=== PATIENT | female | born 1935 | race Caucasian/White ===

== ENCOUNTER → 2016-04-28 | Outpatient (CLI) | payer OTHER ==
[~2016-04-28] MED LIST: ASPI81TA28 PO; LBT100 PO; NTRGSL/4 UT; PLV75 PO; RSTOPS OPB; SERT1TAB88 PO; SIMV40TA2 PO; SYN75 PO; ZNTT/150 PO
[2016-04-28 15:46] LABS: COMPLETE YES; EOS % 2.5 %; HEMATOCRIT 40.2 % (37-47); IG% 0.3 %; LYMPH ABS # 1.05 K/uL (1.2-3.4); MEAN CELL VOLUME 84.3 fL (80-100); MEAN CORPUSCULAR HGB CONC 32.1 g/dl (32-36); MEAN PLATELET VOLUME 11.6 fL (7.4-10.4); MONO % 12.2 %; PLATELET COUNT 206 K/uL (130-400); RED BLOOD COUNT 4.77 M/uL (4.2-5.4); WHITE BLOOD COUNT 8.78 K/uL (4.8-10.8)
[2016-04-28 15:54] LABS: ALT/SGPT 17 U/L (12-78); BLOOD UREA NITROGEN 15 mg/dl (7-18); BUN/CREATININE RATIO 10.9 (10-20); CALCIUM 8.5 mg/dl (8.5-10.1); CARBON DIOXIDE 27 mmol/L (21-32); CHLORIDE 108 mmol/L (98-107); GLUCOSE 106 mg/dl (70-99); POTASSIUM 4.1 mmol/L (3.5-5.1); SODIUM 145 mmol/L (136-145)
[2016-04-28 16:05] LABS: ALB/GLOB RATIO 0.9 (0.9-2); ALKALINE PHOSPHATASE 69 U/L (45-117); AST/SGOT 13 U/L (15-37)
== END | disposition home or self-care (01) ==
LOC: C.LABSPEC 15:05
PROVIDERS: ATTEND Internal Medicine
DX: R53.83 Other fatigue (principal); I10 Essential (primary) hypertension; I25.10 Atherosclerotic heart disease of native coronary artery without angina pectoris

== ENCOUNTER → 2016-11-18 | Outpatient (CLI) | payer OTHER ==
[~2016-11-18] MED LIST changes: +CIPR1TAB10 PO; +CLOP1TAB15 PO; +LABE100T23 PO; +LEVO75TA5 PO; +METR-163 PO; +ONDA8TAB62 SL; +ZNT150 PO
[2016-11-18 13:26] LABS: ESTIMATED AVERAGE GLUCOSE 126 mg/dl; HA1C FLAG Normal (Normal)
[2016-11-18 13:53] LABS: BLOOD UREA NITROGEN 18 mg/dl (7-18); BUN/CREATININE RATIO 14.1 (10-20); CALCIUM 8.7 mg/dl (8.5-10.1); CARBON DIOXIDE 29 mmol/L (21-32); CHLORIDE 108 mmol/L (98-107); GLUCOSE 108 mg/dl (70-99); POTASSIUM 4.2 mmol/L (3.5-5.1); SODIUM 142 mmol/L (136-145)
[2016-11-18 14:06] LABS: CHOLESTEROL 128 mg/dl (0-200); CHOLESTEROL/HDL RATIO 3.5; HDL CHOLESTEROL 37 mg/dl; TRIGLYCERIDES 137 mg/dl (0-150); VERY LOW DENSITY LIPOPROT CALC 27 mg/dl
== END | disposition home or self-care (01) ==
LOC: C.LABSPEC 10:14
PROVIDERS: ATTEND Internal Medicine
DX: Z00.00 Encounter for general adult medical examination without abnormal findings (principal); R73.9 Hyperglycemia, unspecified; E78.5 Hyperlipidemia, unspecified; I10 Essential (primary) hypertension; E03.9 Hypothyroidism, unspecified

== ENCOUNTER → 2016-11-30 | Outpatient (CLI) | payer OTHER | END | disposition home or self-care (01) | LOC: C.RDSM 10:30 | PROVIDERS: ATTEND Physical Medicine & Rehabilitation Sports Medicine | DX: Z96.653 Presence of artificial knee joint, bilateral (principal) ==

== ENCOUNTER 2016-12-17 11:21 | Inpatient (IN) | payer OTHER ==
[~2016-12-17] VITALS: Ht 165.1 cm; Wt 80.0 kg
[2016-12-17] VITALS (7 sets, daily range): BP systolic 144–225; BP diastolic 66–84; PULSE 66–78; TEMP 36.4–37.3; O2SAT 93–97; Ht 165.1 cm; Wt 80.0 kg
[~2016-12-17 11:21] MED LIST changes: -CIPR1TAB10 PO; -CLOP1TAB15 PO; -LABE100T23 PO; -LEVO75TA5 PO; -METR-163 PO; -ONDA8TAB62 SL; -ZNT150 PO
[2016-12-17 12:09] LABS: MEAN CELL VOLUME 83.7 fL (80-100); MEAN CORPUSCULAR HEMOGLOBIN 25.9 pg (25-34); MEAN PLATELET VOLUME 10.8 fL (7.4-10.4); PLATELET COUNT 183 K/uL (130-400); RED BLOOD COUNT 5.02 M/uL (4.2-5.4); WHITE BLOOD COUNT 9.16 K/uL (4.8-10.8)
--- NOTE | 2016-12-17 12:13 | DIAGNOSTIC IMAGING REPORT ---
CHEST ONE VIEW PORTABLE CLINICAL HISTORY: Chest pain. COMPARISON STUDY: Chest radiograph February 13, 2016. FINDINGS: Lung volumes are normal. There is no pneumothorax or pleural effusion. There is no evidence of pulmonary edema. Cardiomediastinal silhouette is stable. There are median sternotomy wires and clips from bypass grafting. Minimal left basilar opacity suggests atelectasis. IMPRESSION: No acute cardiopulmonary findings. Electronically signed by: Antoni Mcgrath M.D. 12/17/2016 12:11 PM Dictated Date/Time: 12/17/2016 12:10 PM
[2016-12-17 12:17] LABS: PROTHROMBIN TIME (PATIENT) 10.2 SECONDS (9.0-12.0)
[2016-12-17] MEDS ORDERED: LABE100T23 PO (12:22)
[2016-12-17] MEDS ORDERED: CLOP1TAB15 PO (12:22)
[2016-12-17] MEDS ORDERED: LEVO75TA5 PO (12:23)
[2016-12-17 12:25] LABS: BUN/CREATININE RATIO 13.4 (10-20); CALCIUM 8.1 mg/dl (8.5-10.1); CREATININE 1.2 mg/dl (0.60-1.20); POTASSIUM 4.2 mmol/L (3.5-5.1)
[2016-12-17 12:30] LABS: CKMB/CK RATIO 2.2 (0-3.0)
[2016-12-17] MEDS ORDERED: NITROGLYCERIN OINT 2% 1GM PACKET EXT ONE (12:30)
--- NOTE | 2016-12-17 13:48 | EMERGENCY ROOM VISIT NOTE ---
History Report prepared by Tal: Miguel Deluna Under the Supervision of: Dr. Kar Higgins M.D. First contact with patient: 12:15 Chief Complaint: CHEST PAIN Stated Complaint: CHEST DISCOMFORT Nursing Triage Summary: pt arrived als from dermatology, pt developed left arm pain yesturday while gardening lasting into today pt took one nitro resolving the pain in route pt was administered 324 asa no complants at this time pt hx stent 3 years prior. c/o feeling weak and tired History of Present Illness The patient is a 81 year old female who presents to the Emergency Room by EMS with complaints of constant left arm pain beginning last night. She states that she was reading when the pain began. She describes the pain as a "dull, ache". The patient states that she took nitroglycerin this morning for her symptoms. She notes that she felt lightheaded after taking the nitroglycerin and walking up some stairs. Her pain was present this morning upon waking up. The patient's pain is worsened with movement. She also complains of fatigue. She denies any chest pain, SOB, nausea, or vomiting. The patient is on Plavix. She has a history of five coronary artery bypass grafts. She had a cardiac stent placed three years ago. Source of History: patient, treating provider Onset: Last night Position: arm (left) Quality: ache, dull Timing: constant Modifying Factors (Worsening): movement Associated Symptoms: + fatigue, No chest pain, No SOB, No nausea, No vomiting Review of Systems See HPI for pertinent positives & negatives. A total of 10 systems reviewed and were otherwise negative. Past Medical & Surgical Medical Problems: (1) Atherosclerosis Nos (2) CAD (coronary artery disease) (3) Chest pain (4) CHEST PAIN, CAD (5) GERD (gastroesophageal reflux disease) (6) Hyperlipidemia Nec/Nos (7) Hypertension Nos (8) Old Myocardial Infarct Surgical Problems: (1) History of coronary artery bypass graft (2) S/P CABG x 5 Old medical records were reviewed. Nurse's notes were reviewed and I agree with. Family History Heart disease Social History Smoking Status: Never Smoker Marital Status: Housing Status: lives with significant other Occupation Status: retired Current/Historical Medications Scheduled Aspirin (Aspirin Ec), 81 MG PO DAILY Clopidogrel (Plavix), 75 MG PO Q2D Labetalol Hcl (Labetalol Hcl), 100 MG PO QPM Levothyroxine Sodium (Levothyroxine Sodium), 75 MCG PO DAILY Nitroglycerin (Nitrostat), 0.4 MG UT PRN Ranitidine (Zantac), 150 MG PO DAILY Sertraline HCl (Sertraline HCl), 25 MG PO DAILY Simvastatin (Zocor), 40 MG PO QPM Allergies Coded Allergies: Codeine (Verified Adverse Reaction, Intermediate, VOMITING, 04/19/09) No Known Allergies (Verified , 07/15/05) Physical Exam Vital Signs Date Time Temp Pulse Resp B/P (MAP) Pulse Ox O2 Delivery O2 Flow Rate FiO2 12/17/16 13:46 224/89 12/17/16 13:31 218/80 12/17/16 13:16 192/74 12/17/16 13:06 59 20 96 12/17/16 13:01 192/84 12/17/16 12:52 195/84 12/17/16 12:46 206/81 12/17/16 12:36 56 21 94 12/17/16 12:31 198/100 12/17/16 12:16 183/110 12/17/16 12:12 54 12/17/16 12:01 201/100 12/17/16 11:43 95 Room Air 12/17/16 11:35 95 Room Air 12/17/16 11:31 36.4 59 18 215/90 95 Room Air Physical Exam General: Non-ill appearing older female in no acute distress. HEENT: Normal cephalic atraumatic. Pupils are equal round and reactive to light. Sclerae anicteric. Extraocular movements are intact. Oropharynx is pink with moist mucous membranes. No swelling of the mouth lips or tongue. Neck: Supple with a midline trachea. No meningeal signs or stiffness, no JVD or bruits. No Stridor. Chest: Clear to auscultation bilaterally. No wheezes or rhonchi. No increased work of breathing. Heart: regular rate and rhythm. Abdomen: Soft nontender, nondistended without rebound guarding or rigidity. Extremities: No cyanosis clubbing or edema. No calf tenderness or assymetry Spine/Back. Non tender to palpation. No CVA tenderness Skin: Good turgor without rashes. Neurologic exam: Cranial nerves two through 12 are intact. Motor and sensation are intact and symmetrical throughout. Medical Decision & Procedures ER Provider Diagnostic Interpretation: X-ray results as stated below per interpretation by me and the radiologist: CHEST ONE VIEW PORTABLE FINDINGS: Lung volumes are normal. There is no pneumothorax or pleural effusion. There is no evidence of pulmonary edema. Cardiomediastinal silhouette is stable. There are median sternotomy wires and clips from bypass grafting. Minimal left basilar opacity suggests atelectasis. IMPRESSION: No acute cardiopulmonary findings. Electronically signed by: Antoni Mcgrath M.D. 12/17/2016 12:11 PM Laboratory Results 12/17/16 11:49 12/17/16 11:49 Test 12/17/16 11:49 12/17/16 11:55 Red Blood Count 5.02 M/uL (4.2-5.4) Mean Corpuscular Volume 83.7 fL (80-100) Mean Corpuscular Hemoglobin 25.9 pg (25-34) Mean Corpuscular Hemoglobin Concent 31.0 g/dl (32-36) RDW Standard Deviation 43.5 fL (36.4-46.3) RDW Coefficient of Variation 14.2 % (11.5-14.5) Mean Platelet Volume 10.8 fL (7.4-10.4) Prothrombin Time 10.2 SECONDS (9.0-12.0) Prothromb Time International Ratio 1.0 (0.9-1.1) Activated Partial Thromboplast Time 27.0 SECONDS (21.0-31.0) Partial Thromboplastin Ratio 1.0 Anion Gap 6.0 mmol/L (3-11) Est Creatinine Clear Calc Drug Dose 38.1 ml/min Estimated GFR () 48.4 Estimated GFR (Non- 41.8 BUN/Creatinine Ratio 13.4 (10-20) Calcium Level 8.1 mg/dl (8.5-10.1) Magnesium Level 2.1 mg/dl (1.8-2.4) Total Bilirubin 0.5 mg/dl (0.2-1) Aspartate Amino Transf (AST/SGOT) 10 U/L (15-37) Alanine Aminotransferase (ALT/SGPT) 16 U/L (12-78) Alkaline Phosphatase 66 U/L (45-117) Total Creatine Kinase 129 U/L (26-192) Creatine Kinase MB 2.8 ng/ml (0.5-3.6) Creatine Kinase MB Ratio 2.2 (0-3.0) Total Protein 6.7 gm/dl (6.4-8.2) Albumin 3.4 gm/dl (3.4-5.0) Globulin 3.3 gm/dl (2.5-4.0) Albumin/Globulin Ratio 1.0 (0.9-2) Thyroid Stimulating Hormone (TSH) 1.780 uIu/ml (0.300-4.500) Free Thyroxine 0.95 ng/dl (0.80-1.60) Bedside Troponin I < 0.030 ng/ml (0-0.045) Laboratory studies as stated above per my review. Medications Administered Medications (Trade) Dose Ordered Sig/Jordi Route Start Time Stop Time Status Last Admin Dose Admin Nitroglycerin (Nitroglycerin 2% Oint) 0.5 inch NOW ONCE EXT 12/17/16 12:30 12/17/16 12:32 DC 12/17/16 12:30 0.5 INCH ECG Indication: chest pain Rate (beats per minute): 57 Rhythm: sinus bradycardia Findings: 1st degree AV block, PVC, Q waves (Old, inferiorly), other (Poor R- wave progession. Biphasic T-waves in the lateral leads.) Comparison ECG Date: October 14, 2013 Change: T-waves appear slightly changed. ED Course 1221: Past medical records reviewed. The patient was evaluated in room C11B, and a complete history and physical examination were performed. 1230: Ordered Nitroglycerin 2% Oint 0.5 inch EXT. 1334: Upon reevaluation, the patient is resting comfortably. I discussed the results and treatment plan with the patient. She verbalized agreement of the treatment plan. The patient will be evaluated for further management. Medical Decision Differentials include, but are not limited to; acute coronary syndrome, arrhythmia, musculoskeletal and electrolyte or metabolic abnormality. This patient comes in as described above. She has a extensive cardiac history with revascularization. She had left arm pain last evening want to bear when she woke up. She had some arm pain got worse and she took a nitroglycerin and got better. She felt a little dizzy after taking nitroglycerin after walking up steps. She is asymptomatic at present. She has no chest pain or shortness of breath. IV access was established and she was noted to be hypertensive. She was given 1/2 inch of Nitropaste to gently bring down her pressure which it did. Her EKG shows no definite acute changes there is some biphasic T's in V5 and V6 which is slightly different than before but no ST segment elevations. Chest x-ray is unremarkable. She has no acute electrolyte or metabolic abnormalities. The patient does not typically take nitroglycerin and can't remember the last time she took it. Given her extensive history and the use and nitroglycerin which is atypical for her, I do think she needs to be observed for further treatment and evaluation to rule out a cardiac event. I have consulted Dr. Carlin De Souza and he will admit her for these measures. Medication Reconcilliation Current Medication List: was personally reviewed by me Blood Pressure Screening Patient's blood pressure: Elevated blood pressure Blood pressure disposition: Referred to PCP Consults Time Called: 1325 Consulting Physician: Dr. De Souza -[facility] Returned Call: [phone] Discussed the patient's case. The patient will be evaluated for further management. Impression Primary Impression: Left arm pain Additional Impression: Acute coronary syndrome Scribe Attestation The scribe's documentation has been prepared under my direction and personally reviewed by me in its entirety. I confirm that the note above accurately reflects all work, treatment, procedures, and medical decision making performed by me. Departure Information Dispostion Being Evaluated By Hospitalist Referrals Souleymane Asif M.D. (PCP) Patient Instructions [facility] Problem Qualifiers
[2016-12-17] MEDS ORDERED: LABETALOL HCL 100 MG TAB PO ONE (14:00)
[2016-12-17] MEDS ORDERED: MoRPHine SULFATE 2 MG/ML CARP IV PRN (14:00)
[2016-12-17] MEDS ORDERED: LORAZEPAM 0.5 MG TAB PO PRN (14:00)
[2016-12-17] MEDS ORDERED: NITROGLYCERIN 0.4 MG SL PER TAB CHARGE SL PRN (14:00)
[2016-12-17] MEDS ORDERED: HydrALAZINE HCL 20 MG/ML VIAL IV. STA (14:03)
[2016-12-17] MEDS ORDERED: ALUMINUM/MAGNESIUM/SIMETH (MAALOX MAX) 30 ML UDC PO PRN (14:15)
[2016-12-17 14:52] LABS: MAGNESIUM 2.1 mg/dl (1.8-2.4); THYROID STIMULATING HORMONE 1.78 uIu/ml (0.300-4.500)
[2016-12-17] MEDS ORDERED: IV FLUIDS COMPLETED PRN (15:15)
[2016-12-17] MEDS ORDERED: HydrALAZINE HCL 20 MG/ML VIAL IV. PRN (16:45)
--- NOTE | 2016-12-17 17:28 | History and Physical ---
History & Physical Date of Service Dec 17, 2016. History & Physical ADMISSION DATE : 12/17/2016 CHIEF COMPLAINT : 81-year-old female admitted through the emergency room with chest pain and left arm pain. She does have coronary artery disease. PRESENT ILLNESS : Patient with multiple medical problems including coronary artery disease. In 2006 she underwent a five-vessel coronary artery bypass graft at [facility]. She had a SARABIA to LAD and reverse saphenous graft from the aorta to OM 2 and to the RCA and rather sequential graft from the aorta to the ramus and diagonal arteries. In 2013 on 10/14/2013 she was admitted with inferior wall myocardial infarction. She had an emergency cardiac catheterization. She had evidence of critical stenosis of the RCA ostium. A stent was placed. Patient has been on aspirin and on Plavix. Her medical history is also significant for acute hypertension, anxiety, gastroesophageal reflux, hyperlipidemia, spinal stenosis. Patient was complaining of pain in her left arm last night. Denied any associated diaphoresis. No shortness of breath. No palpitation. This morning her symptoms persisted. Her called her to go upstairs. She went up 2 flights of steps. She felt short of breath. She took one nitroglycerin sublingually. She had an appointment to see Dr. Persaud in dermatology. When she was in his office she mentioned to the nurse that she took a nitroglycerin 1 hour prior to her dermatology appointment. Patient was sent to the emergency room for evaluation. She was seen by Dr. Higgins. Multiple tests were done. Her electrocardiogram did not show any acute changes. Her troponin I was normal. Because of her extensive coronary artery disease history and her complaints patient was admitted under observation status to complete her evaluation. PAST MEDICAL HISTORY : * Coronary artery disease. As noted above in February 2007 she had a prolonged episode of chest pain. She had evidence of non-ST segment elevation myocardial infarction. She was referred to [facility] and she underwent five- vessel coronary artery bypass graft as noted above. * On 10/14/[address] was admitted with ST segment elevation acute myocardial infarction and had a cardiac catheterization with placement of right coronary artery ostial stent. * Arterial hypertension. Long-standing. * Gastroesophageal reflux. Known distal esophageal stenosis requiring dilatation in the past * Hypothyroidism diagnosed in 1917. Compensated. * Left total knee arthroplasty in July 2005 * Right total knee arthroplasty on 01/30/2010 * Bilateral tubal ligation in the remote past. Subsequently she had a total abdominal hysterectomy and bilateral salpingo-oophorectomy in 1985 because of bleeding and endometriosis * Diverticulosis with episode of acute diverticulitis in 2006 * Chronic sinus congestion underwent bilateral ethmoidectomy and maxillary sinus antrostomy [place] [address] Whiteside. * Spinal stenosis at L5-S1 level and she did receive steroid injection in the past on 03/05/2010 SOCIAL HISTORY : She is . Had 4 children. No history of any smoking or alcohol. No excessive coffee T was soft drinks. 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 FAMILY HISTORY : Mother denies a 69 had an abdominal aortic aneurysm which was repaired. She had another aneurysm that ruptured. She had an IA at age 54. Her father at age 73. Had lung cancer and myocardial infarction. One brother age 48 at liver cirrhosis. Her family history is significant for acute hypertension and breast cancer on her mother's side. ALLERGIES : Intolerance to codeine with mostly GI symptomatology CURRENT MEDICATIONS : All as noted on her home medication list REVIEW OF SYSTEMS : She is feeling anxious and nervous. She is having some pressure in her head. No problem with her vision. She has a fullness in her ears. Denies any sore throat. No neck pain. No chest pain at this point. No shortness of breath. No nausea no vomiting. No problem with her bowel movements. No problem urinating. PHYSICAL EXAMINATION : Well-developed in no distress. Her recorded weight is 84.2 kg, height 165.1 cm , BMI 30.9 Vital signs: On arrival to the emergency room her blood pressure was 215/90, pulse 59, respiration 18, temperature 36.4, oxygen saturation 95% on room air Skin is warm and dry. Facial rash for which she was seen the wad impregnator today HEENT: She wears glasses. No mucosal abnormalities in her nose mouth or throat. Neck is supple without lymph node or thyroid enlargement. No JVD. Normal cardiac pulses. No bruit. Chest is normal. No chest wall tenderness. Heart regular heart sounds without any murmur rub or gallop Lungs are clear. Abdomen is soft nontender without organomegaly or masses Back no spinal tenderness Extremities no edema clubbing or cyanosis. No joint or muscle tenderness. Neurological examination: She is alert and oriented without deficit. LABORATORY TESTS : WBC count 9160, hemoglobin 13, hematocrit 42%, platelet count 183,000. Sodium 142, potassium 4.2, chloride 109, CO2 27, BUNs 16, creatinine 1.2, glucose 98, calcium 8.1, magnesium 2.1, total bilirubin 0.5, AST 10, AST 16, alkaline phosphatase 66, total CK 129, MB fraction 2.8, troponin I less than 0.030, total protein 6.7, albumin 3.4, globulin 3.3, TSH 1.780, free T4 0.95. Prothrombin time 10.2, INR 1.0, PTT 27. Chest x-ray showed no acute changes Electrocardiogram showed sinus rhythm with PVCs. No acute changes ASSESSMENT : * Chest and left arm pain * Coronary artery disease status post 5 vessel coronary artery bypass graft in 2006. Status post stenting of an ostial RCA stenosis in 2013 * Arterial hypertension * Hypothyroidism * Hyperlipidemia * Gastroesophageal reflux * Distal esophageal stenosis requiring dilatation in the past * Anxiety PLAN : Patient was admitted under observation status. 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 All other laboratory tests were ordered. Echocardiogram was ordered. She was continued on her medications. Hydralazine intravenously for elevated blood pressure. Cardiology consultation requested. A Lexiscan was ordered. Patient will not tolerate running on the treadmill. She is also afraid of having a dobutamine stress test. We'll control her blood pressure. Complete her workup. Proceed with a stress test if her cardiac isoenzymes are negative.
[2016-12-17] MEDS: RANITIDINE HCL 150 MG TAB PO SCH (20:44)
[2016-12-17] MEDS: SIMVASTATIN 40 MG TAB PO SCH (20:44)
[2016-12-17] MEDS ORDERED: LABETALOL HCL 100 MG TAB PO SCH (21:00)
[2016-12-18] VITALS (7 sets, daily range): BP systolic 103–159; BP diastolic 64–76; PULSE 66–79; TEMP 36.5–37; O2SAT 91–95
[2016-12-18 01:03] LABS: CKMB/CK RATIO 1.5 (0-3.0)
[2016-12-18 06:11] LABS: BASO % 0.1 %; BASO ABS # 0.01 K/uL (0-0.2); COMPLETE YES; EOS % 0.8 %; HEMATOCRIT 41.1 % (37-47); IG% 0.3 %; LYMPH % 9.6 %; LYMPH ABS # 1.11 K/uL (1.2-3.4); MEAN CELL VOLUME 82.4 fL (80-100); MEAN CORPUSCULAR HEMOGLOBIN 27.7 pg (25-34); MEAN CORPUSCULAR HGB CONC 33.6 g/dl (32-36); MEAN PLATELET VOLUME 10.9 fL (7.4-10.4); NEUT % 78.2 %; PLATELET COUNT 180 K/uL (130-400); RED BLOOD COUNT 4.99 M/uL (4.2-5.4); WHITE BLOOD COUNT 11.62 K/uL (4.8-10.8)
[2016-12-18] MEDS: LEVOTHYROXINE 75 MCG TAB PO SCH ×2 (06:30→11:02)
[2016-12-18 06:48] LABS: BUN/CREATININE RATIO 14.2 (10-20); CALCIUM 8.4 mg/dl (8.5-10.1); CREATININE 1.2 mg/dl (0.60-1.20); POTASSIUM 4.2 mmol/L (3.5-5.1)
[2016-12-18 06:53] LABS: CKMB/CK RATIO 1.2 (0-3.0)
[2016-12-18] MEDS ORDERED: REGADENOSON 0.4 MG/5 ML SYR ONE (08:01)
[2016-12-18] MEDS: RANITIDINE HCL 150 MG TAB PO SCH ×2 (11:02→21:04)
[2016-12-18] MEDS: ASPIRIN 81 MG ECTAB PO SCH (11:02)
[2016-12-18] MEDS: SERTRALINE HCL 50 MG TAB PO SCH (11:02)
--- NOTE | 2016-12-18 14:10 | Myocardial Perfusion Study ---
Myocardial Perfusion Study Rpt Myocardial Perfusion Study Rpt Date of Service 12/18/16 Myocardial Perfusion Study Rpt Procedure: 1. Myocardial perfusion study performed in multiple views/images 2. Lexiscan pharmacologic stress ECG Indications: 1. Chest pain 2. CAD Consent: Informed written consent was obtained prior to the procedure. Ordering physician: Dr. De Souza Procedural details: For the stress portion of the study, Lexiscan 0.4 mg was intravenously administered followed by a saline flush. This was followed by 28.9 mCi of technetium 99m Cardiolite, injected at 9:45 a.m. on 12/18/2016. 30 minutes following the injection, imaging of the heart was performed in multiple projections. For the rest portion of the study, 9.5 mCi technetium 99m Cardiolite was injected intravenously at 7:44 a.m. on 12/18/2016. 1 hour following the injection, imaging of the heart was performed in the same projections. Lexiscan stress ECG: Resting ECG demonstrated: Sinus rhythm at 76 bpm. Maximum heart rate: 102 bpm Resting blood pressure: 128/67 mmHg Maximum blood pressure: 174/75 mmHg Maximal, age-predicted heart rate: 74 % Significant ST changes: None Arrhythmia: None Symptoms: Dyspnea, nausea, vomiting. No chest pain. Findings: Rotating raw imaging demonstrated no significant lung uptake. There is no significant motion artifact. Heart size appeared normal. Myocardial perfusion demonstrated moderate sized area of mildly to moderately reduced uptake involving the base to mid inferior, base to mid inferolateral, and base to mid lateral wall segments. These defects were fixed in post stress and rest imaging with mild reversibility in the mid segments, suggesting prior infarct with mild santana-infarct ischemia. Ejection fraction: 58 % Wall motion: Normal No significant transient ischemic dilation. Impression: 1. Abnormal myocardial perfusion study suggesting base to mid inferior, inferolateral, and lateral wall infarct with mild santana-infarct ischemia in the mid wall segments. 2. Normal LV systolic function. EF 58%. 3. Wall motion appeared normal. 4. Lexiscan induced dyspnea, nausea, and vomiting. No chest pain. 5. No arrhythmia. 6. Nondiagnostic Lexiscan ECG.
--- NOTE | 2016-12-18 14:36 | ECHOCARDIOGRAM REPORT ---
*NOTICE TO RECEIVING [employer] This information is strictly Confidential and protected under [place] law. [place] law prohibits you from making any further disclosure of this information unless further disclosure is expressly permitted by the written consent of the person to whom it pertains or is authorized by law. A general authorization for the release of medical or other information is not sufficient for this purpose. Hospital accepts no responsibility if the information is made available to any other person, INCLUDING THE PATIENT. Interpretation Summary * Name: SULEMA ARMENTA Study Date: 12/18/2016 06:50 AM BP: 136/72 mmHg * Patient Location: [facility]\S\N282\S\2 HR: 79 * : 1935 (M/d/yyyy) Gender: Female Height: 65 in * Age: 81 yrs Ethnicity: [place] Weight: 185 lb * Ordering Physician: Souleymane Asif * Referring Physician: Self, Referred * Performed By: Zee Tamayo RDCS * * Reason For Study: CHEST PAIN * BSA: 1.9 m2 * -- Conclusions -- * 1. Normal left ventricular size and systolic function. EF 55-60%. Hypokinesis of the base to mid inferior wall. Severe hypokinesis to akinesis of the mid inferolateral wall. Akinesis of the basal inferolateral wall. Moderate concentric left ventricular hypertrophy. Type 1 diastolic dysfunction. * 2. Normal right ventricular size with mildly reduced systolic function. * 3. The left atrium is mildly dilated. * 4. Aortic valve sclerosis mild, without significant aortic valvular stenosis. * 5. Normal estimated right ventricular systolic pressure; 19 mmHg. * 6. No significant change from prior study on 10/15/2013. Procedure Details * A complete two-dimensional transthoracic echocardiogram was performed (2D, M-mode, Doppler and color flow Doppler). Left Ventricle * Normal left ventricular size and systolic function. EF 55-60%. Hypokinesis of the base to mid inferior wall. Severe hypokinesis to akinesis of the mid inferolateral wall. Akinesis of the basal inferolateral wall. Moderate concentric left ventricular hypertrophy. Type 1 diastolic dysfunction. Right Ventricle * Normal right ventricular size with mildly reduced systolic function. Atria * The left atrium is mildly dilated. * Right atrial size is normal. * There is no evidence of atrial septal defect, but resolution does not allow assessment for a patent foramen ovale. Mitral Valve * There is moderate mitral annular calcification. * There is no mitral valve stenosis. * There is trace mitral regurgitation. Tricuspid Valve * The tricuspid valve is not well visualized, but is grossly normal. * There is no tricuspid stenosis. * There is trace tricuspid regurgitation. Aortic Valve * Aortic valve sclerosis mild, without significant aortic valvular stenosis. * No aortic regurgitation is present. Pulmonic Valve * The pulmonary valve is inadequately visualized, but the Doppler data is adequate for interpretation. * There is no pulmonic valvular stenosis. * Trace pulmonic valvular regurgitation. Great Vessels * The aortic root is normal size. * Aortic arch of normal dimension. Pericardium/Pleural * There is no pericardial effusion. Great Vessels * Normal inferior vena cava size and collapsability with sniff indicates a normal right atrial pressure of 3 mmHg MMode 2D Measurements and Calculations IVSd 1.5 cm IVSs 2.2 cm LVIDd 4.5 cm LVIDs 3.6 cm LVPWd 1.4 cm LVPWs 1.5 cm IVS/LVPW 1.1 FS 19.8 % EDV(Teich) 90.2 ml ESV(Teich) 53.4 ml EF(Teich) 40.8 % EDV(cubed) 88.3 ml ESV(cubed) 45.6 ml EF(cubed) 48.4 % % IVS thick 48.9 % % LVPW thick 11.9 % LV mass(C)d 250.2 grams LV mass(C)dI 130.8 grams/m\S\2 LV mass(C)s 286.0 grams LV mass(C)sI 149.5 grams/m\S\2 SV(Teich) 36.8 ml SI(Teich) 19.2 ml/m\S\2 SV(cubed) 42.8 ml SI(cubed) 22.3 ml/m\S\2 Ao root diam 3.1 cm Ao root area 7.4 cm\S\2 LA dimension 4.5 cm asc Aorta Diam 3.3 cm LA/Ao 1.5 LVOT diam 2.2 cm LVOT area 3.7 cm\S\2 LVAd ap4 29.5 cm\S\2 LVLd ap4 8.4 cm EDV(MOD-sp4) 89.8 ml EDV(sp4-el) 87.4 ml LVAs ap4 17.0 cm\S\2 LVLs ap4 6.8 cm ESV(MOD-sp4) 36.4 ml ESV(sp4-el) 36.1 ml EF(MOD-sp4) 59.4 % EF(sp4-el) 58.8 % LVAd ap2 28.7 cm\S\2 LVLd ap2 7.7 cm EDV(MOD-sp2) 90.7 ml EDV(sp2-el) 91.4 ml LVAs ap2 16.9 cm\S\2 LVLs ap2 6.5 cm ESV(MOD-sp2) 40.7 ml ESV(sp2-el) 37.3 ml EF(MOD-sp2) 55.1 % EF(sp2-el) 59.1 % LVLd %diff -9.85 % EDV(MOD-bp) 91.7 ml LVLs %diff -5.08 % ESV(MOD-bp) 37.4 ml EF(MOD-bp) 59.2 % SV(MOD-sp4) 53.3 ml SI(MOD-sp4) 27.9 ml/m\S\2 SV(MOD-sp2) 50.0 ml SI(MOD-sp2) 26.1 ml/m\S\2 SV(MOD-bp) 54.2 ml SI(MOD-bp) 28.3 ml/m\S\2 SV(sp4-el) 51.4 ml SI(sp4-el) 26.9 ml/m\S\2 SV(sp2-el) 54.0 ml SI(sp2-el) 28.2 ml/m\S\2 Doppler Measurements and Calculations MV E max olena 86.8 cm/sec MV A max olena 128.1 cm/sec MV E/A 0.68 MV V2 max 151.2 cm/sec MV max PG 9.1 mmHg MV V2 mean 73.7 cm/sec MV mean PG 2.5 mmHg MV V2 VTI 34.8 cm MVA(VTI) 2.3 cm\S\2 MV P1/2t max olena 90.3 cm/sec MV P1/2t 116.6 msec MVA(P1/2t) 1.9 cm\S\2 MV dec slope 227.0 cm/sec\S\2 MV dec time 0.32 sec Ao V2 max 185.8 cm/sec Ao max PG 13.8 mmHg Ao max PG (full) 9.9 mmHg Ao V2 mean 125.0 cm/sec Ao mean PG 7.1 mmHg Ao mean PG (full) 5.0 mmHg Ao V2 VTI 36.5 cm SAHRA(I,A) 2.2 cm\S\2 SAHRA(I,D) 2.2 cm\S\2 SAHRA(V,A) 2.0 cm\S\2 SAHRA(V,D) 2.0 cm\S\2 LV V1 max PG 4.0 mmHg LV V1 mean PG 2.1 mmHg LV V1 max 99.4 cm/sec LV V1 mean 68.0 cm/sec LV V1 VTI 22.3 cm SV(Ao) 271.7 ml SI(Ao) 142.0 ml/m\S\2 SV(LVOT) 81.4 ml SI(LVOT) 42.5 ml/m\S\2 TV E max olena 40.3 cm/sec TR max olena 196.8 cm/sec RVSP(TR) 18.5 mmHg RAP systole 3.0 mmHg
--- NOTE | 2016-12-18 15:54 | CARDIOLOGY CONSULTATION ---
DATE OF CONSULTATION: 12/18/2016 TIME: 14:34 p.m. ORDERING PHYSICIAN: Souleymane De Souza MD REASON FOR CONSULTATION: Chest pain and CAD. PRIMARY [facility] RADIO OPERATOR: Dr. Guzmán. HISTORY OF PRESENT ILLNESS: Mrs. Ojeda is a pleasant 81-year-old female with a history significant for CAD, status post CABG and PCI with RCA infarct, hypertension, dyslipidemia, and acid reflux. She presented to [facility] and was admitted on 12/17/2016 due to left arm pain. She states that she was working in her flower bed and a few minutes later, while at rest, she developed left-sided arm pain. She said that included the entire left arm down to the fingertips. It was constant for several hours before spontaneously resolving. There were no associated shortness of breath and no radiation of the pain. She denies any chest discomfort upon questioning. She does have mild dyspnea with exertion if she walks up steps quickly, but states that this is a chronic issue. She does sometimes experiences lightheadedness after walking up stairs quickly as well. She recalls that during her myocardial infarction in 2013, her angina consisted of a left chest discomfort, described as a thumping sensation that radiated to her jaw. She had no such discomfort during her left arm pain episode. She did not recall having left arm pain as part of her angina as well. She believes that her symptoms are completely different than her prior angina. She does not exercise, but describes herself as being an active person. Despite her activities, once again, she has not had any further anginal symptoms, but does have chronic dyspnea with exertion while climbing stairs quickly. She has been having some issues with abdominal discomfort and nausea and vomiting. She states that she vomits often, sometimes every other day. She has been evaluated by other providers for these symptoms. She denies recent syncope, near syncope, palpitations, edema, melena, hematochezia, or hematuria. She currently denies left arm pain. REVIEW OF SYSTEMS: As above. Review of systems is otherwise negative/unremarkable. PAST MEDICAL HISTORY: 1. Multivessel CAD status post CABG x5 in [place] [facility] SARABIA to LAD. SVG to OM2 and RCA. SVG sequential graft to ramus and diagonal vessel. 2. RCA STEMI 10/14/2013, status post PCI to the ostial RCA stent that was a 3 x 18 mm Xience drug-eluting stent, postdilated with 3.5 noncompliant balloon. 3. Hypertension. 4. Dyslipidemia. 5. Acid reflux. 6. Anxiety. 7. Spinal stenosis. 8. Hypothyroidism. 9. Left total knee arthroplasty. 10. Right total knee arthroplasty. 11. Bilateral tubal ligation. 12. Total abdominal hysterectomy and bilateral salpingo-oophorectomy in 1985. 13. Diverticulosis with a history of diverticulitis. 14. Bilateral ethmoidectomy and maxillary sinus antrostomy. 15. Spinal stenosis, L5-S1 level. HOME MEDICATIONS: Include Zocor 40 mg daily, labetalol 100 mg at bedtime, levothyroxine 75 mcg daily, Plavix 75 mg daily, and aspirin 81 mg daily. INPATIENT MEDICATIONS: Include aspirin 81 mg daily, Plavix 75 mg daily, simvastatin 40 mg daily, and labetalol 100 mg q.p.m. Please see full list. ALLERGIES: CODEINE IS LISTED INTOLERANCE DUE TO GI ISSUES. No known drug allergies. SOCIAL HISTORY: Denies tobacco or alcohol abuse. She is and lives at home with her . She has 4 children, 1 in [place], 2 in [place], and 1 in [place]. 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 FAMILY HISTORY: Mother had an SC at the age of 54 and also had AAA repair. Father at 73 with lung cancer and myocardial infarction. Brother at 48 with liver cirrhosis. PHYSICAL EXAMINATION: VITAL SIGNS: Temperature 37 degrees, heart rate 79 beats per minute, respiratory rate 18, and blood pressure 154/68 mmHg, but was significantly hypertensive at 215/90 mmHg upon presentation and her maximum blood pressure recorded during this hospitalization was 225/77 mmHg. Oxygen saturation 93% on room air. Weight 79.7 kg. GENERAL: No acute distress. She is alert and oriented. HEENT: Anicteric sclerae. NECK: No appreciable JVD. No bruits. Normal carotid upstrokes bilaterally. CARDIAC EXAMINATION: PMI was not palpable. There was no ventricular heave. Regular, normal S1 and S2. A 1/6 early peaking systolic ejection murmur best heard at the right upper sternal border. No rubs or gallops. LUNGS: Clear to auscultation bilaterally without wheezes, rales or rhonchi. ABDOMEN: Soft, nontender, and nondistended. Normoactive bowel sounds. No bruits noted. EXTREMITIES: No cyanosis. No significant pitting edema. No palpable cords. 2+ radial pulses bilaterally. 1+ dorsalis pedis pulses bilaterally. PSYCHIATRIC: Affect appears appropriate. Telemetry personally reviewed. Sinus rhythm with one 6-beat run of ventricular tachycardia at 00:35 this morning. LABORATORY DATA: White blood cell count 11.62, hemoglobin 13.8, and platelets 180. Sodium 140, potassium 4.2, BUN 17, creatinine 1.2, and magnesium 2.1. Troponin peak 0.018. TSH 1.78. INR 1. Chest x-ray on 12/17/2016, image personally reviewed. No obvious infiltrate. According to radiology, no acute cardiopulmonary findings. Echocardiogram on 12/18/2016: Normal LV size and systolic function. EF 55%-60%. Hypokinesis of the base to mid inferior wall. Severe hypokinesis to akinesis of the mid inferolateral wall. Akinesis of the basal inferolateral wall. Moderate LVH. Type 1 diastolic dysfunction. Mildly reduced RV systolic function. Sclerotic aortic valve without stenosis. RVSP 19. Myocardial perfusion study 12/18/2016: Base to mid inferior, inferolateral, lateral wall infarct with mild santana-infarct ischemia involving the mid wall segments in the territory. EF 58%. Cardiac catheterization on 10/14/2013: Mid LAD 100% stenosis. Severe distal disease involving the ramus. Proximal circumflex mild disease. OM2 occluded 100%. Ostial RCA 70%-80% and underwent PCI with drug-eluting stent as noted above. SVG to RCA thrombus noted within the proximal graft with occlusion 100%. SVG to OM2 patent. SARABIA to LAD patent. SVG sequential graft to the ramus and diagonal 100% occluded. ASSESSMENT AND PLAN: 1. Left arm pain: Given the fact that it lasted for several hours constantly without elevated troponins, this does not appear to be consistent with ischemic heart disease. She did have evidence of infarct on myocardial perfusion study and echocardiogram and there was mild santana-infarct ischemia in the mid wall segments of the inferolateral, inferior and lateral salomon. Recommend medical therapy. 2. Multivessel coronary artery disease, status post coronary artery bypass graft and RCA percutaneous coronary intervention: Continue aspirin 81 mg daily indefinitely. Continue Plavix as she is tolerating it well. No angina, but she did have left arm pain as described above. Would recommend optimizing medications for blood pressure. Consider b.i.d. dosing of beta valeria therapy as she does have an adequate heart rate to support increase beta valeria. Can consider high intensity statin therapy. 3. Hypertension: Consider increasing labetalol 200 mg twice daily and further titrate to optimize blood pressure as appropriate if heart rate allows. 4. Dyslipidemia: Can consider high intensity statin therapy given her underlying coronary artery disease. 5. Abnormal myocardial perfusion study: Myocardial perfusion study suggests prior infarct with mild santana-infarct ischemia in the mid segments of the inferolateral, lateral, and inferior wall segments. Recommend medical therapy as described above. Can increase beta valeria if no contraindication or issues in the past with this medication to improve her blood pressure and for antianginal benefits if she should have angina in the future. 6. Disposition: Follow up with Dr. Guzmán, her primary bilingual patient support caseworker. Thank you for allowing me to participate in the care of Mrs. Ojeda. Please call for any other questions or concerns. Greater than 40 minutes spent, with greater than 50% of the time spent in counseling the patient.
[2016-12-18] MEDS ORDERED: ISOSORBIDE MONONITRATE 30 MG TABCR PO ONE (17:30)
[2016-12-18] MEDS ORDERED: ONDANSETRON INJ 2 MG/ML 2 ML VIAL IV STA (17:36)
[2016-12-18] MEDS ORDERED: ONDANSETRON INJ 2 MG/ML 2 ML VIAL IV PRN (17:45)
--- NOTE | 2016-12-18 17:50 | Progress Note ---
Progress Note Date of Service Dec 18, 2016. Progress Note 81-year-old female with known coronary artery disease. She is status post 5 vessel coronary artery bypass graft in 2006 and an acute inferior wall myocardial infarction in 2013 with stenting of severe ostial stenosis of her RCA. She also has arterial hypertension, hyperlipidemia, gastroesophageal reflux and hypothyroidism. Patient presented with left arm the. She was also having problem with not feeling well. Feeling nauseous. Had vomiting. She was initially admitted under observation status. Cardiac isoenzymes were negative for any evidence of acute myocardial injury. Her echocardiogram showed multiple abnormalities with hypokinesis and akinesis of multiple abrasions of her left ventricular wall. Today she also had a Lexiscan done. Was abnormal. Showing evidence of santana-infarction ischemia. Patient was also seen in cardiology consultation by Dr. Pink. EXAMINATION : GENERAL: Well-developed. Not feeding well. Feeling nauseous. VITAL SIGNS: 159/75, pulse 66, respiration 18, temperature 36.5, oxygen saturation 95% on room air. SKIN: Warm and dry. No rash. HEENT: Wears glasses. NECK: No adenopathy no thyromegaly. No JVD. No carotid bruit. HEART: Regular heart sounds. No murmur rub or gallop. LUNGS: Clear. ABDOMEN: Soft nontender without organomegaly or masses BACK: No spinal tenderness EXTREMITIES: No edema clubbing or cyanosis LABORATORY TESTS : WBC count 11,620, hemoglobin 13.8, hematocrit 41.1, platelet count 180,000. Sodium 140, potassium 4.2, chloride 107, CO2 26, BUN 17, creatinine 1.3, glucose 126, calcium 8.4, as noted on her cardiac isoenzymes were negative ASSESSMENT : * Coronary artery disease * Santana-infarction ischemia * Arterial hypertension * Hyperlipidemia * Gastroesophageal reflux * Hypothyroidism PLAN : * As recommended by Dr. Pink will try to improve her blood pressure controlled. I did increase her labetalol to 200 mg twice a day. She was on higher dose in the past. * I added Imdur 60 mg daily * Also added Cozaar 12.5 mg daily * Continuing her other medications * Zofran for her nausea * Changed her status from observation to admission. We need time to optimize her treatment * If her condition remains stable we will increase her activity tomorrow and see how she does
[2016-12-18] MEDS ORDERED: CLOPIDOGREL BISULFATE 75 MG TAB PO SCH (21:00)
[2016-12-18] MEDS: LABETALOL HCL 100 MG TAB PO SCH (21:03)
[2016-12-18] MEDS: SIMVASTATIN 40 MG TAB PO SCH (21:04)
[2016-12-19] VITALS (11 sets, daily range): BP systolic 76–160; BP diastolic 42–72; PULSE 64–80; TEMP 36.4–36.8; O2SAT 90–93
[2016-12-19] MEDS: LEVOTHYROXINE 75 MCG TAB PO SCH (05:42)
[2016-12-19] MEDS: SERTRALINE HCL 50 MG TAB PO SCH (07:09)
[2016-12-19] MEDS: LABETALOL HCL 100 MG TAB PO SCH ×2 (07:09→20:42)
[2016-12-19] MEDS: ASPIRIN 81 MG ECTAB PO SCH (07:10)
[2016-12-19] MEDS: RANITIDINE HCL 150 MG TAB PO SCH ×2 (07:10→20:42)
[2016-12-19] MEDS ORDERED: ISOSORBIDE MONONITRATE 60 MG TABCR PO SCH (09:00)
[2016-12-19] MEDS ORDERED: LOSARTAN POTASSIUM 25 MG TAB PO SCH (09:00)
--- NOTE | 2016-12-19 10:20 | Progress Note ---
Progress Note Date of Service Dec 19, 2016. Progress Note 81-year-old female admitted through the emergency room with chest pain and left arm pain. She does have extensive coronary artery disease. She has a history of 5 vessel coronary artery bypass graft in 2006 and acute inferior wall myocardial infarction in 2013 requiring stenting of severe ostial stenosis of her RCA. Her blood pressure was markedly elevated on admission. Patient was admitted. Cardiac isoenzymes were negative for any evidence of myocardial infarction. Electrocardiograms did not show any acute changes. At one time her monitor showed frequent PVCs after admission but that has resolved. She had an echocardiogram done. Her left ventricular ejection fraction was normal. But she does have multiple areas of hypokinesis and akinesis related to her coronary artery disease. She was also seen in cardiology consultation by Dr. Alcides Pink. She had a Lexiscan yesterday. It did showed abnormalities consistent with her prior known coronary artery disease but also she had evidence of santana-infarction reversible ischemia. Because of the marked elevation of her blood pressure I made adjustments in her medications yesterday. I did increase her labetalol 200 mg twice a day. Also added low-dose losartan 12.5 mg daily. Because of the findings on Lexiscan with santana-infarction ischemia I did add nitroglycerin mononitrate 60 mg daily. Patient was doing well this morning. She was getting out bed. She had her breakfast. Her blood pressure this morning was 124/69. She went to the bathroom. She felt dizzy and lightheaded. She was noted to be orthostatic. Her blood pressure dropped down significantly to 76/42. This was about an hour after she received her oral medications this morning. Patient was put back to bed. Her blood pressure didn't improve while she was lying down. At this point she is resting comfortably in bed. She denied any headache no dizziness no lightheadedness. No diaphoresis. No chest pain no shortness of breath. She does have some abdominal pain throughout her abdomen but very mild and nonspecific. No problem with her bowel movements. No problem urinating. EXAMINATION : GENERAL: Well-developed. In no distress at this point. VITAL SIGNS: Her last blood pressure reading was 82/45. As noted this morning her blood pressure was 124/69, pulse 70, respirations 16, temperature 36.4, oxygen saturation 91% on room air. SKIN: Warm and dry. HEENT: She wears glasses. No mucosal abnormalities. NECK: Supple. Nontender. No JVD. No carotid bruit. HEART: Regular heart sounds without any murmur rub or gallop LUNGS: Clear. ABDOMEN: Soft. Nontender. No organomegaly no masses. BACK: No spinal tenderness. EXTREMITIES: No edema clubbing or cyanosis. ASSESSMENT : * Coronary artery disease with history of 5 vessel coronary artery bypass graft in 2006 and ostial stent in of the RCA in 2013. Admitted with chest pain and left arm pain * Santana-infarction ischemia demonstrated on Lexiscan * Arterial hypertension * hyperlipidemia * Hypothyroidism PLAN : * For now I discontinued her labetalol, isosorbide mononitrate, and losartan. * We will monitor her blood pressure. I will plan on restarting her labetalol at 100 mg twice a day if her blood pressure permits it later on today. * Depending on how her blood pressure is in the future will decide on the possibility of restarting any nitrates or losartan. * She is under considerable stress. Her has multiple medical problems. She takes care of everything at home. Recently he had multiple medical issues. She feels quite stressed. She tells me that she is considering the possibility of moving into a personal home care facility because she feels overwhelmed most of the times and does not feel that she is able to take care of everything at home
--- NOTE | 2016-12-19 17:45 | Progress Note ---
Progress Note Date of Service Dec 19, 2016. Progress Note I saw Mrs. Ojeda this afternoon. Throughout the day her blood pressure has improved. She is having much less dizziness and lightheadedness when she gets up. She is complaining of abdominal pain. Mostly throughout her abdomen but more localized on the left side. She remains without any fever or any chills. On examination she does have abdominal tenderness mostly on the left side. Did not detect any guarding or any rebound tenderness. The possibility of an acute diverticulitis is considered. The following was done: * I did restart her labetalol 100 mg twice a day. The next dose will be 2100 tonight. * Also will check a CT scan of the abdomen and pelvis with oral and IV contrast because of her abdominal pain. * Rechecking her laboratory tests in the morning
[2016-12-19] MEDS ORDERED: OPTIRAY 320 IV PRN (18:00)
[2016-12-19] MEDS: SIMVASTATIN 40 MG TAB PO SCH (20:42)
--- NOTE | 2016-12-19 23:11 | DIAGNOSTIC IMAGING REPORT ---
ABD/PELVIS IV AND ORAL CONT HISTORY: 81 years-old Female ABD. PAIN, ? DIVERTICULITIS. COULD WE DO TODAY ? Acute generalized lower abdominal pain COMPARISON: CT abdomen and pelvis 12/24/2006 TECHNIQUE: Multiple axial CT images of the abdomen and pelvis were obtained following the intravenous administration of 93 mL Optiray 320. Oral contrast also administered. A dose lowering technique was used consistent with the principals of MANOLO. FINDINGS: 1.2 x 0.7 cm noncalcified solid pulmonary nodule with marginal spiculation is present within the lateral segment right middle lobe on image 14 series 3, previously 1.1 x 0.6 cm on study dated 12/24/2006. Patchy consolidative and groundglass opacities are present within the lateral left lung base. 3 mm noncalcified pulmonary nodule is present within the right lower lobe on image 14 of series 3. Mild tree-in-bud nodularity of the left lung base suggests associated bronchiolitis. There is no pneumoperitoneum. Inferior cardiac chambers are mildly enlarged. Prior median sternotomy and CABG. [place] coronary arterial calcifications are noted. The liver, spleen, pancreas and adrenal glands are unremarkable. Prior cholecystectomy. Mild intrahepatic and extrahepatic biliary ductal dilation is likely secondary to postcholecystectomy state with reservoir effect. Common bile duct measures 9 mm transversely which is only mildly dilated considering patient's age. Low attenuating lesions of the kidneys bilaterally too small to characterize however suggesting cysts. There is mild urothelial thickening of the left proximal ureter and left renal pelvis as seen on image 185 series 3 without obstructing stone or mass identified. No significant hydronephrosis. Right ureter is unremarkable. Moderate wall thickening of the bladder is noted with partial distention. Prior hysterectomy. Moderate to extensive mixed plaquing of the abdominal aorta. Mildly prominent iliac chain adenopathy is seen measuring up to 1.0 cm on image 336 series 3 on the left. Small sliding-type hiatal hernia. Stomach is mildly distended with oral contrast. A large duodenal diverticulum is noted. Mildly prominent loops of small bowel are seen within the upper abdomen without evidence of bowel obstruction measuring up to 2.7 cm. Extensive sigmoid colonic diverticulosis. Moderate wall thickening with surrounding inflammatory stranding is seen within the mid descending colon as seen on image 197 series 3 surrounding several diverticula. Inflammatory changes extend into the distal descending colon and descending sigmoid junction with moderate surrounding inflammatory stranding and trace pericolic ascites. No definite abscess or evidence of perforation. Diastases recti. Bones are intact. Facet arthropathy is seen within the lower lumbar spine. Severe intervertebral disc space narrowing at L5-S1. IMPRESSION: 1. Findings compatible with acute uncomplicated diverticulitis of the descending colon with inflammatory changes extending into the distal descending colon and descending sigmoid junction. No evidence of perforation or abscess at this time. 2. Mildly prominent loops of small bowel within the midabdomen without evidence of bowel obstruction may reflect reactive ileus. 3. Mild urothelial enhancement of the left renal pelvis and proximal left ureter without hydronephrosis. Correlate with urinalysis. 4. Spiculated noncalcified pulmonary nodule of the right middle lobe is stable in size dating back to CT 12/24/2006. 5. Additional incidental findings as above. The above report was generated using voice recognition software. It may contain grammatical, syntax or spelling errors. Electronically signed by: Alber Singer M.D. 12/19/2016 11:10 PM Dictated Date/Time: 12/19/2016 10:54 PM
[2016-12-19] MEDS ORDERED: CIPROFLOXACIN / D5W 400 MG in PREMIXED IN D5W 200 ML IV STA (23:50)
[2016-12-20 00:03] VITALS: BP 157/67; PULSE 77; TEMP 37.1; O2SAT 90
[2016-12-20] MEDS: METRONIDAZOLE / NSS 500 MG in PREMIXED NSS 100 ML IV SCH ×2 (01:04→07:26)
[2016-12-20 05:13] VITALS: BP 129/70; PULSE 70; TEMP 36.7; O2SAT 93
[2016-12-20] MEDS: LEVOTHYROXINE 75 MCG TAB PO SCH (05:58)
[2016-12-20] MEDS: ASPIRIN 81 MG ECTAB PO SCH (07:26)
[2016-12-20] MEDS: RANITIDINE HCL 150 MG TAB PO SCH (07:26)
[2016-12-20] MEDS: SERTRALINE HCL 50 MG TAB PO SCH (07:26)
[2016-12-20] MEDS: LABETALOL HCL 100 MG TAB PO SCH (07:26)
[2016-12-20 07:36] LABS: BUN/CREATININE RATIO 19.4 (10-20); CALCIUM 7.8 mg/dl (8.5-10.1); CREATININE 1.3 mg/dl (0.60-1.20); POTASSIUM 4.3 mmol/L (3.5-5.1)
[2016-12-20 07:45] VITALS: BP 121/63; PULSE 68; TEMP 36.7; O2SAT 90
[2016-12-20 07:55] LABS: HEMATOCRIT 37.4 % (37-47); MEAN CELL VOLUME 82.9 fL (80-100); MEAN CORPUSCULAR HEMOGLOBIN 26.2 pg (25-34); MEAN CORPUSCULAR HGB CONC 31.6 g/dl (32-36); MEAN PLATELET VOLUME 11.3 fL (7.4-10.4); PLATELET COUNT 185 K/uL (130-400); RED BLOOD COUNT 4.51 M/uL (4.2-5.4); WHITE BLOOD COUNT 13.18 K/uL (4.8-10.8)
[2016-12-20 08:30] LABS: BASO % 0.1 %; BASO ABS # 0.01 K/uL (0-0.2); COMPLETE YES; EOS % 0.4 %; IG% 0.3 %; LYMPH % 7.5 %; LYMPH ABS # 0.99 K/uL (1.2-3.4); MONO % 14.1 %; NEUT % 77.6 %
[2016-12-20] MEDS ORDERED: ONDA8TAB62 SL (09:15)
[2016-12-20] MEDS ORDERED: LBT100 PO (09:15)
[2016-12-20] MEDS ORDERED: METR-163 PO (09:15)
[2016-12-20] MEDS ORDERED: CIPR1TAB10 PO (09:15)
[2016-12-20] MEDS ORDERED: ZNT150 PO (09:15)
--- NOTE | 2016-12-20 09:20 | Discharge Instructions ---
Discharge Instructions Date of Service Dec 20, 2016. Admission Reason for Admission: CORONARY ARTERY DISEASE ARTERIAL HYPERTENSION ACUTE DIVERTICULITIS HYPERLIPIDEMIA GASTROESOPHAGEAL REFLUX HYPOTHYROIDISM Discharge Discharge Diagnosis / Problem: CORONARY ARTERY DISEASE, DIVERTICULITIS, ARTERIAL HYPERTENSION Discharge Goals Goal(s): Decrease discomfort, Improve function, Increase independence, Improve disease control Activity Recommendations Activity Limitations: resume your previous activity . Instructions / Follow-Up Instructions / Follow-Up DR CUMMINGS [address] CROWELL. PLEASE CALL FOR APPOINTMENT Current Hospital Diet Patient's current hospital diet: AHA Diet (Heart Healthy) Discharge Diet Recommended Diet: AHA Diet (Heart Healthy) Pending Studies Studies pending at discharge: no Laboratory Results Hemoglobin A1c Test 11/18/16 08:30 Range/Units Estimated Average Glucose 126 mg/dl Hemoglobin A1c 6.0 H 4.5-5.6 % Lipid Panel Test 11/18/16 08:30 Range/Units Triglycerides Level 137 0-150 mg/dl Cholesterol Level 128 0-200 mg/dl HDL Cholesterol 37 mg/dl LDL Cholesterol Direct 78 mg/dl Cholesterol/HDL Ratio 3.5 LDL Cholesterol, Calculated mg/dl Medical Emergencies . Who to Call and When: Medical Emergencies: If at any time you feel your situation is an emergency, please call 911 immediately. . Non-Emergent Contact Non-Emergency issues call your: Primary Care Provider . . "Provider Documentation" section prepared by Souleymane Cummings. . VTE Core Measure Inpt VTE Proph given/why not?: Treatment not indicated
[2016-12-20 09:43] VITALS: BP 121/63; PULSE 68; TEMP 36.7; O2SAT 90
[2016-12-20] MEDS ORDERED: CIPROFLOXACIN / D5W 400 MG in PREMIXED IN D5W 200 ML IV SCH (13:00)
--- NOTE | 2016-12-20 16:56 | Progress Note ---
Progress Note Date of Service Dec 20, 2016. Progress Note 81-year-old female admitted with chest pain and left arm pain. She has coronary artery disease. Had prior five-vessel coronary artery bypass graft. Had prior stenting of the ostial stenosis of the RCA in 2013. Patient was admitted. Cardiac isoenzymes were negative for any evidence of myocardial infarction.a Lexiscan was done. Was abnormal.showed evidence of abnormal myocardial perfusion suggesting base to mid inferior, inferolateral, and lateral wall infarction with mild santana-infarction ischemia in the mid wall segments. Her ejection fraction was 58%. Patient did experience nausea and dyspnea. She was seen in cardiology consultation by Dr. Alcides Pink. Her blood pressure was markedly elevated. Her blood pressure treatment regimen was adjusted. She did experience significant hypotension with the addition of isosorbide mononitrate and Cozaar. Both medications were discontinued. Her labetalol was increased to 100 mg twice a day which seemed to be tolerated. Yesterday patient was experiencing abdominal pain. More pronounced on the left thigh. A CT scan of the abdomen and pelvis with oral and IV contrast was done. She had evidence of acute diverticulitis in the descending colon. She was started on IV ciprofloxacin and metronidazole. She has not had any fever or any chills. Her blood pressure is under control. She denied any headache or dizziness or lightheadedness. No chest pain no shortness of breath. No left arm pain. Her abdominal pain has subsided but still persistent on the left side. She was able to tolerate her breakfast without any problem. No problem with her bowel movements. No problem urinating. She is able to get out of bed and ambulate on her own. EXAMINATION: GENERAL : Well developed. Well nourished. No acute distress. VITAL SIGNS : Blood Pressure : 121/63, pulse 68, respirations 16, temperature 36.7, oxygen saturation 90% on room air. SKIN : Warm and dry. No rash. HEENT :She wears glasses. NECK : Supple. No adenopathy. No thyromegaly. No JVD. Normal carotid pulses. No carotid bruit. HEART: Regular heart sounds without any murmur rub or gallop. LUNGS: Clear. Normal breath sounds. ABDOMEN: Soft. Minimal tenderness left side of the abdomen. No guarding or rebound. Good bowel sounds. EXTREMITIES : No edema clubbing or cyanosis. No joint or muscle tenderness. Good peripheral pulses. LABORATORY TESTS: WBC count 13,180, hemoglobin 11.8, hematocrit 37.4, platelet count 165,000. Sodium 138, potassium 4.3, chloride 106, CO2 25, BUN 25, creatinine 1.3, glucose 122, calcium 7.8. ASSESSMENT: * coronary artery disease * Chest and left arm pain. Myocardial infarction ruled out. Areas of santana- infarction ischemia on her Lexiscan * Arterial hypertension * Acute diverticulitis descending colon * Hyperlipidemia * Hypothyroidism * Anxiety PLAN: * her condition has improved. * Multiple issues discussed during this hospitalization presently the stress she is under at home. * discharged home today * Oral ciprofloxacin and metronidazole for 10 days * Followup in one week * Cardiology followup to be scheduled * She is thinking of different options as far as reducing the stress.
== END 2016-12-20 11:39 | disposition home or self-care (01) | DRG 303 ==
LOC: EDBD 11:21 → C.EDC 11:23 → C.MED 13:54 → ENRESERV 14:31 → OBSVTOIN 12-18 17:30
PROVIDERS: ADMIT Internal Medicine; ATTEND Internal Medicine
DX: I25.10 Atherosclerotic heart disease of native coronary artery without angina pectoris (principal); K57.32 Diverticulitis of large intestine without perforation or abscess without bleeding; I25.89 Other forms of chronic ischemic heart disease; I11.9 Hypertensive heart disease without heart failure; I25.2 Old myocardial infarction; E78.5 Hyperlipidemia, unspecified; K21.9 Gastro-esophageal reflux disease without esophagitis; Z79.899 Other long term (current) drug therapy; Z79.02 Long term (current) use of antithrombotics/antiplatelets; Z79.82 Long term (current) use of aspirin; Z95.1 Presence of aortocoronary bypass graft; Z95.5 Presence of coronary angioplasty implant and graft; Z96.653 Presence of artificial knee joint, bilateral; Z82.49 Family history of ischemic heart disease and other diseases of the circulatory system; Z80.1 Family history of malignant neoplasm of trachea, bronchus and lung; Z80.3 Family history of malignant neoplasm of breast; Z83.79 Family history of other diseases of the digestive system

== ENCOUNTER → 2017-04-20 | Outpatient (CLI) | payer OTHER ==
[~2017-04-20] MED LIST changes: +CLOP1TAB15 PO; +LEVO75TA5 PO; +ONDA8TAB62 SL; -PLV75 PO; -RSTOPS OPB; -SYN75 PO; +ZNT150 PO; -ZNTT/150 PO
--- NOTE | 2017-04-21 14:01 | MAMMOGRAPHY REPORT ---
BILATERAL DIGITAL SCREENING MAMMOGRAM TOMOSYNTHESIS WITH CAD: 04/20/2017 CLINICAL HISTORY: Routine screening. Patient has no complaints. TECHNIQUE: Breast tomosynthesis in addition to standard 2D mammography was performed. Current study was also evaluated with a Computer Aided Detection (CAD) system. COMPARISON: Comparison is made to exams dated: 02/27/2016 mammogram, 02/27/2016 stereotactic biopsy, 02/19/2016 mammogram, 01/24/2015 mammogram, 07/12/2014 mammogram, and 01/10/2014 mammogram - [facility]. BREAST COMPOSITION: There are scattered areas of fibroglandular density in both breasts. FINDINGS: There are stable asymmetries and masses in the left breast. A stable biopsy marker clip in the medial left breast. Scattered benign-appearing calcifications bilaterally. No new suspicious m ass, architectural distortion or cluster of microcalcifications is seen. IMPRESSION: ACR BI-RADS CATEGORY 1: NEGATIVE There is no mammographic evidence of malignancy. A 1 year screening mammogram is recommended. The pa tient will receive written notification of the results. Approximately 10% of breast cancers are not detected with mammography. A negative mammographic report should not delay biopsy if a clinically suggestive mass is present. Shayla Kelly M.D. ay/:04/20/2017 15:47:21 Senior [employer] Developer: Ever Stringer M, [facility] letter sent: Normal 1/2 BI-RADS Code: ACR BI-RADS Category 1: Negative
== END | disposition home or self-care (01) ==
LOC: C.MAMM 13:52
PROVIDERS: ATTEND Internal Medicine
DX: Z12.31 Encounter for screening mammogram for malignant neoplasm of breast (principal)

== ENCOUNTER 2018-03-31 22:53 | Inpatient (IN) ==
[2018-03-31 23:22] LABS: Basophils # (auto) 0.01 K/uL (0-0.2); Basophils % (auto) 0.1 %; Eosinophils # (auto) 0.18 K/uL (0-0.5); Eosinophils % (auto) 2.2 %; Hemoglobin 13.4 g/dL (12.0-16.0); Immature Granulocytes # (auto) 0.02 K/uL (0.00-0.02); Immature Granulocytes % (auto) 0.2 %; Lymphocytes # (auto) 1.79 K/uL (1.2-3.4); Lymphocytes % (auto) 21.9 %; Mean Corpuscular Hgb Conc 31.9 g/dL (32-36); Mean Corpuscular Volume 84.2 fL (80-100); Mean Platelet Volume 11.4 fL (7.4-10.4); Monocytes # (auto) 0.74 K/uL (0.11-0.59); Neutrophils # (auto) 5.45 K/uL (1.4-6.5); Neutrophils % (auto) 66.6 %; Platelet Count 202 K/uL (130-400); RDW Coefficient of Variation 14.2 % (11.5-14.5); RDW Standard Deviation 43.6 fL (36.4-46.3); Red Blood Count 4.99 M/uL (4.2-5.4); White Blood Count 8.19 K/uL (4.8-10.8)
[2018-03-31 23:29] LABS: iSTAT Hemoglobin 13.3 g/dl (12.0-16.0); iSTAT Ionized Calcium 1.17 mmol/l (1.12-1.32)
[2018-03-31 23:51] LABS: Albumin Globulin Ratio 0.8 (0.9-2); BUN Creatinine Ratio 17.7 (10-20); Bilirubin,Total 0.3 mg/dl (0.2-1); Calcium 7.6 mg/dl (8.5-10.1); Creatinine Clr Calc Pharmacy 40.8 ml/min; Est GFR (African American) 54.6; Est GFR (Non-African American) 47.1; Globulin 3.6 gm/dl (2.5-4.0); Total Protein 6.6 gm/dl (6.4-8.2); Troponin I 0.267 ng/ml (0-0.045)
[2018-04-01 00:29] LABS: INR 1.1 (0.9-1.1); Partial Thromboplastin Ratio 1.2; Partial Thromboplastin Time 31.9 Seconds (21.0-31.0); Prothrombin Time 11.4 Seconds (9.0-12.0)
[2018-04-01 00:43] LABS: Potassium 2.9 mmol/L (3.5-5.1)
[2018-04-01 00:49] LABS: Magnesium 1.4 mg/dl (1.8-2.4)
[2018-04-01 05:48] LABS: Basophils # (auto) 0.01 K/uL (0-0.2); Basophils % (auto) 0.1 %; Eosinophils # (auto) 0.17 K/uL (0-0.5); Eosinophils % (auto) 2.1 %; Hemoglobin 12.3 g/dL (12.0-16.0); Immature Granulocytes # (auto) 0.01 K/uL (0.00-0.02); Immature Granulocytes % (auto) 0.1 %; Lymphocytes # (auto) 1.62 K/uL (1.2-3.4); Lymphocytes % (auto) 20.4 %; Mean Corpuscular Hgb Conc 31.5 g/dL (32-36); Mean Corpuscular Volume 83.9 fL (80-100); Mean Platelet Volume 10.9 fL (7.4-10.4); Monocytes # (auto) 0.74 K/uL (0.11-0.59); Monocytes % (auto) 9.3 %; Neutrophils # (auto) 5.38 K/uL (1.4-6.5); Platelet Count 172 K/uL (130-400); RDW Coefficient of Variation 14.1 % (11.5-14.5); RDW Standard Deviation 42.9 fL (36.4-46.3); Red Blood Count 4.65 M/uL (4.2-5.4); White Blood Count 7.93 K/uL (4.8-10.8)
[2018-04-01 06:13] LABS: Partial Thromboplastin Ratio 2.7
[2018-04-01 06:15] LABS: Partial Thromboplastin Time 71.3 Seconds (21.0-31.0)
[2018-04-01 06:26] LABS: BUN Creatinine Ratio 15.1 (10-20); Creatinine Clr Calc Pharmacy 39.2 ml/min; Est GFR (African American) 52.8; Est GFR (Non-African American) 45.6; Potassium 4.1 mmol/L (3.5-5.1)
[2018-04-02 06:38] LABS: Basophils # (auto) 0.01 K/uL (0-0.2); Basophils % (auto) 0.1 %; Eosinophils # (auto) 0.26 K/uL (0-0.5); Hematocrit (blood only) 41.2 % (37-47); Hemoglobin 12.9 g/dL (12.0-16.0); Immature Granulocytes # (auto) 0.02 K/uL (0.00-0.02); Immature Granulocytes % (auto) 0.2 %; Lymphocytes % (auto) 17.1 %; Mean Corpuscular Hgb Conc 31.3 g/dL (32-36); Mean Corpuscular Volume 85.7 fL (80-100); Monocytes # (auto) 0.82 K/uL (0.11-0.59); Monocytes % (auto) 9.3 %; Neutrophils # (auto) 6.17 K/uL (1.4-6.5); Neutrophils % (auto) 70.3 %; Platelet Count 172 K/uL (130-400); RDW Coefficient of Variation 14.3 % (11.5-14.5); RDW Standard Deviation 44.4 fL (36.4-46.3); Red Blood Count 4.81 M/uL (4.2-5.4); White Blood Count 8.78 K/uL (4.8-10.8)
[2018-04-02 07:03] LABS: Partial Thromboplastin Ratio 2.4
[2018-04-02 07:05] LABS: Partial Thromboplastin Time 63.1 Seconds (21.0-31.0)
[2018-04-02 07:08] LABS: BUN Creatinine Ratio 11.6 (10-20); Creatinine Clr Calc Pharmacy 37.5 ml/min; Est GFR (African American) 50.1; Est GFR (Non-African American) 43.2; Magnesium 2.1 mg/dl (1.8-2.4); Potassium 4.3 mmol/L (3.5-5.1)
== END 2018-04-02 16:14 | disposition home or self-care (01) ==
LOC: ED 22:53 → SUATTDRO 04-01 02:30 → 2S 04-01 02:30

== ENCOUNTER 2019-04-08 10:41 | Inpatient (IN) ==
[2019-04-08] MEDS ORDERED: dilTIAZem HCL 125 MG in DEXTROSE 5% 100 ML IV STA (10:58)
[2019-04-08] MEDS ORDERED: dilTIAZem HCl 5 MG/ML 5 ML VIAL IV STA (10:58)
[2019-04-08] MEDS ORDERED: SODIUM CHLORIDE 0.9% 500 ML IV SCH (11:00)
[2019-04-08 11:08] LABS: Eosinophils # (auto) 0.16 K/uL (0-0.5); Eosinophils % (auto) 2.1 %; Hematocrit (blood only) 41.1 % (37-47); Hemoglobin 12.6 g/dL (12.0-16.0); Immature Granulocytes # (auto) 0.02 K/uL (0.00-0.02); Immature Granulocytes % (auto) 0.3 %; Lymphocytes # (auto) 0.96 K/uL (1.2-3.4); Lymphocytes % (auto) 12.7 %; Mean Corpuscular Hemoglobin 25.7 pg (25-34); Mean Corpuscular Hgb Conc 30.7 g/dL (32-36); Mean Corpuscular Volume 83.9 fL (80-100); Mean Platelet Volume 11.4 fL (7.4-10.4); Monocytes # (auto) 0.66 K/uL (0.11-0.59); Monocytes % (auto) 8.7 %; Neutrophils # (auto) 5.75 K/uL (1.4-6.5); Neutrophils % (auto) 76.2 %; Platelet Count 205 K/uL (130-400); RDW Coefficient of Variation 15.6 % (11.5-14.5); RDW Standard Deviation 47.7 fL (36.4-46.3); White Blood Count 7.55 K/uL (4.8-10.8)
[2019-04-08 11:26] LABS: Partial Thromboplastin Ratio 0.9; Partial Thromboplastin Time 23.4 Seconds (21.0-31.0); Prothrombin Time 10.7 Seconds (9.0-12.0)
[2019-04-08 11:28] LABS: Albumin Level 3.1 gm/dl (3.4-5.0); Calcium 8.4 mg/dl (8.5-10.1); Creatinine Clr Calc Pharmacy 35.1 ml/min; Est GFR (African American) 44.6; Est GFR (Non-African American) 38.5; Magnesium 1.9 mg/dl (1.8-2.4); Potassium 4.1 mmol/L (3.5-5.1)
--- NOTE | 2019-04-08 11:30 | XRay Report ---
SINGLE VIEW CHEST CLINICAL HISTORY: Generalized weakness. FINDINGS: An AP, portable, upright chest radiograph is compared to study dated 03/14/2019. The examin ation is degraded by portable technique and apical lordotic positioning. The patient is status post m idline sternotomy. The heart is enlarged noting atherosclerotic calcification of the thoracic aorta. There is pulmonary vascular congestion. Small pleural effusions are identified. Bibasilar opacities l ikely represent atelectasis. No pneumothorax is seen. The skeletal structures are osteopenic. The bon y thorax is grossly intact. IMPRESSION: 1. Cardiomegaly with evidence of mild congestive failure. 2. Trace pleural effusions. ACT 112: Negative or not required by law. Electronically signed by: Bill Betancur M.D. 04/08/2019 11:29 AM
--- NOTE | 2019-04-08 11:38 | CT Scan Report ---
CT SCAN OF THE BRAIN WITHOUT IV CONTRAST CLINICAL HISTORY: Expressive aphasia. COMPARISON STUDY: CT of the paranasal sinuses dated 10/14/2007. TECHNIQUE: Unenhanced axial CT scan of the brain is performed from the vertex to the skull base. A do se lowering technique was utilized adhering to the principles of ALARA. CT DOSE: 537.48 mGy.cm FINDINGS: Brain parenchyma: There are age-related involutional changes noting mild subcortical and periventric ular microangiopathic change. There is no hemorrhage, mass effect, or evidence of acute territorial i schemia by CT criteria. Silvestre-white matter differentiation is preserved. No extra-axial fluid collecti on is seen. 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 Ventricles, sulci, cisterns: Prominent secondary to involutional change. Intracranial vasculature: There is atherosclerotic calcification of the cavernous carotid and vertebr al arteries. Foci of gas within the cavernous sinuses are likely related to IV placement. Calvarium: Unremarkable. Sinuses and mastoids: The visualized paranasal sinuses are clear. The mastoid air cells are well pneu matized. Orbits: The bony orbits are grossly intact. There are bilateral ocular lens implants. IMPRESSION: There is no hemorrhage, mass effect, or evidence of acute territorial ischemia by CT crit elizabeth. ACT 112: Negative or not required by law. Electronically signed by: Bill Betancur M.D. 04/08/2019 11:37 AM
[2019-04-08 11:41] LABS: Albumin Globulin Ratio 0.9 (0.9-2); Bilirubin,Total 0.6 mg/dl (0.2-1); Globulin 3.5 gm/dl (2.5-4.0); Thyroid Stimulating Hormone 2.33 uIu/ml (0.300-4.500); Total Protein 6.6 gm/dl (6.4-8.2); Troponin I 0.066 ng/ml (0-0.045)
[2019-04-08 13:12] LABS: Appearance Urine Clear (Clear); Bilirubin Urine Negative (Negative); Blood Urine Negative (Negative); Color Urine Yellow; Glucose Urine UA Negative (Negative); Ketones Urine Negative (Negative); Leukocyte Esterase Urine Negative (Negative); Nitrite Urine Negative (Negative); Protein Urine Negative (Negative); Specific Gravity Urine 1.012 (1.000-1.030); Urobilinogen Urine Negative (Negative)
--- NOTE | 2019-04-08 13:30 | History & Physical Report ---
Date of Service April 08, 2019 Assessment & Plan (1) Atrial fibrillation, rapid: Admit to PCU on telemetry Vital signs every 4 hours Started diltiazem in the ER continue on the floor Monitor electrolytes and replenish TTE pending Monitor elevated troponin and trend down, EKG x3 Full code Present on Admission?: Yes (2) Transient ischemic attack: Follow the stroke pathway without TPA Consult neurology Brain MRI pending Ultrasound of the carotids pending Patient reports that dysarthria resolved Given aspirin 81 Patient has history of GI bleed. Present on Admission?: Yes (3) Elevated troponin: As the above Present on Admission?: Yes (4) Labile hypertension: Continue to controlling blood pressure. Continue clonidine 0.1 mg p.o. twice daily as needed, lisinopril 20 mg p.o. every morning, metoprolol tartrate 12.5 mg p.o. twice daily, Nitroglycerin 0.4 mg as needed as needed. Present on Admission?: Yes (5) Dyslipidemia: Lipid panel, simvastatin 40 mg p.o. every morning switch to atorvastatin 40 mg p.o. nightly Present on Admission?: Yes (6) Hypothyroidism: Continue levothyroxine 75 MCG's p.o. every morning (7) Diarrhea: Patient has persistent diarrhea for 3 to 4 months. Started pantoprazole 40 mg p.o. daily. Titrate up as needed Consult GI Stool studies pending including C. difficile Hemoccult pending Present on Admission?: Yes History of Present Illness Chief Complaint: Abdominal pain, chest pain, elevated troponin, diarrhea Primary Care Provider: Souleymane De Souza MD The patient is a 83 years old female with past medical history of hypercholesterolemia, depression, hypertension, hypothyroidism, paroxysmal A. fib's who presents to the emergency room with a complaint of atypical chest pain, palpitations, maldigestion, and diarrhea. The chest pain started this morning and lasted for less than 5 minutes. It was located in her epigastric area and went tolerated left chest. Patient denies radiation to her neck or radiation to her left arm. Patient reports having diarrhea for 3 to 4 months. She reports that her bowels are either loose or very liquid and patient is not sure what is going on with it. Patient reports having Forde's esophagus. Patient was taken off of Eliquis because in the past she had GI bleed. Patient denies fever, chills,shortness of breath, frequency, urgency, syncope or near syncope. Reviewed sodium 143, potassium 4.1, chloride 111, anion gap 5, BUN 15, creatinine 1.27, GFR 38.5, glucose 159, magnesium 1.9, AST 21, ALT 31, alkaline phosphatase 65, troponin 0.0 66, total protein 6.6, albumin 3.1, TSH 2.33, WBC 7.55, hemoglobin 12.6, hematocrit 41.1, platelets 205, urine all negative, PT 10.7, INR 1, APTT 23.4, influenza A&B negative. CT scan: There is no hemorrhage mass affect or evidence of acute territorial ischemia by CT criteria. Chest x-ray is cardiomegaly with evidence of mild congestive failure. Trace pleural effusion. The decision was made to admit patient to PCU on telemetry for elevated troponin, mild congestive heart failure, abdominal discomfort and diarrhea. Allergies Allergy/AdvReac Type Severity Reaction Status Date / Time codeine AdvReac Intermediate Vomiting Verified 04/08/19 12:03 Home Medications Home Medications Medication Instructions Recorded Confirmed Type levothyroxine 75 mcg PO QAM 04/01/18 04/08/19 History nitroglycerin [Nitrostat] 0.4 mg SUBLINGUAL DIRECTED PRN 04/01/18 04/08/19 History sertraline 25 mg PO HS 04/01/18 04/08/19 History simvastatin 40 mg PO QAM 04/01/18 04/08/19 History lisinopril 20 mg PO QAM #30 tab 04/02/18 04/08/19 Rx clonidine HCl 0.1 mg PO BID PRN 03/14/19 04/08/19 History metoprolol tartrate 12.5 mg PO BID 03/14/19 04/08/19 History gabapentin 300 mg PO DAILY 04/08/19 04/08/19 History mupirocin 1 applic TOPICAL UD 04/08/19 04/08/19 History Past Med/Surg History Medical History Acute NM, inferior wall Anxiety Basal cell carcinoma of nose CAD (coronary artery disease) Depression GERD (gastroesophageal reflux disease) Hearing deficit Hyperlipidemia Hypertension Hypertensive emergency Hypothyroidism Myocardial Infarction x2----follows with Dr. Guzmán NSTEMI (non-ST elevated myocardial infarction) Surgical History History of arthroscopy of left knee History of arthroscopy of right knee History of bilateral cataract extraction History of bilateral tubal ligation History of cardiac cath x2--2006 @ [facility] [place]--no stent/2013 @ [facility] x1 stent History of cholecystectomy History of colonoscopy History of dilatation and curettage multiple History of esophagogastroduodenoscopy (EGD) History of ethmoidectomy History of heart artery stent 2013 @ [facility] History of left breast biopsy benign History of repair of rectocele with cystocele History of tooth extraction History of total hysterectomy with bilateral salpingo-oophorectomy (BSO) History of total left knee replacement (TKR) History of total right knee replacement (TKR) History of wisdom tooth extraction S/P CABG x 5 (2006) 2006 @ [facility] [place] Status post Mohs surgery for basal cell carcinoma Family History Son Family history of diabetes mellitus Son Family history of diabetes mellitus Other No family history of adverse response to anesthesia Social History Preferred Language: Tamaz[place] Communication Ability: Effective 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 Beliefs That Will Affect Care: None marital status: Current Living Situation: Spouse current occupational status: retired Feels Safe at Home: Yes Smoking Status: Never smoker Second Hand Exposure: Yes (parents/ smoked) ; Hx Alcohol Use: No Hx Substance Use: No Review of Systems Review of Systems: All systems reviewed & are unremarkable except as noted in HPI & below Physical Exam Constitutional: WD/WN, vitals as above well developed and + obese Eyes: PERRL, conjunctivae normal, anicteric sclerae ENMT: external ear and nose normal, oropharynx normal Respiratory: normal respiratory effort, lungs clear to auscultation Cardiovascular: Rate/Rhythm: + irregularly irregular Heart Sounds: normal S1, normal S2 and + murmur Palpation: + palpable S3 Vessels: + JVD and dorsalis pedis pulses present Extremities: + pedal edema Gastrointestinal (Abdomen): normal bowel sounds, soft, nontender, no hepatosplenomegaly Musculoskeletal: no cyanosis or clubbing, extremities motor strength 5/5 Skin: no rashes, warm and dry Neurologic: patellar DTR's 2+ bilat, sensation intact Psychiatric: A+Ox3, euthymic affect Lymphatic: no cervical or axillary lymphadenopathy Results & Data Vital Signs (Past 12 Hours) Vital Signs Temp Pulse Resp BP Pulse Ox 04/08/19 12:30 82 24 118/82 92 04/08/19 12:00 85 22 106/64 95 04/08/19 11:37 79 19 109/67 94 04/08/19 11:13 114 H 114/76 93 04/08/19 11:00 109 H 20 95 04/08/19 10:53 36.5 C 113 H 28 H 135/93 94 04/08/19 10:49 122 H 23 04/08/19 10:46 129 H 20 135/93 96 Code Status & VTE Plan Code Status Full code VTE Prophylaxis Plan VTE Prophylaxis will be ordered: Yes PG Care Time/CCT Total # of Minutes Spent Total Time Spent with Patient: Total time spent is greater than 50% in coordination of care (as documented) at patient's floor/unit and/or counseling patient: Coding Level of Care Code 71830 Initial Inpt Care Lvl 3 Diagnoses Atrial fibrillation, rapid I48.91 Transient ischemic attack G45.9 Elevated troponin R79.89 Labile hypertension R09.89 Dyslipidemia E78.5 Hypothyroidism E03.9 Diarrhea R19.7
[2019-04-08] MEDS ORDERED: NITROGLYCERIN SL 0.4 MG/TAB TAB SL PRN (14:36)
[2019-04-08] MEDS ORDERED: ONDANSETRON INJ 2 MG/ML 2 ML VIAL IV PRN (14:36)
[2019-04-08] MEDS ORDERED: ATORVASTATIN 40 MG TAB PO SCH (14:36)
[2019-04-08] MEDS ORDERED: ACETAMINOPHEN 325 MG TAB PO PRN (14:36)
[2019-04-08] MEDS ORDERED: PHARMACIST DISCHARGE MED REC CONSULT PRN (14:36)
[2019-04-08] MEDS ORDERED: FUROSEMIDE 40 MG/4 ML VIAL IV SCH (14:36)
[2019-04-08] MEDS ORDERED: ALUMINUM/MAGNESIUM SUSP 30 ML UDC PO PRN (14:36)
[2019-04-08] MEDS ORDERED: MAGNESIUM HYDROXIDE SUSP 30 ML UDC PO PRN (14:36)
[2019-04-08] MEDS ORDERED: POLYETHYLENE (MIRALAX) 17 GM PACK PO PRN (14:36)
[2019-04-08 14:59] LABS: Estimated Average Glucose 134 mg/dl; Hemoglobin A1C 6.3 % (4.5-5.6)
[2019-04-08] MEDS ORDERED: MAGNESIUM SULFATE / D5W 1 GM/100 ML BAG IV ONE (15:15)
[2019-04-08 15:23] LABS: Partial Thromboplastin Ratio 0.9; Partial Thromboplastin Time 23.9 Seconds (21.0-31.0); Prothrombin Time 10.7 Seconds (9.0-12.0)
--- NOTE | 2019-04-08 16:29 | Emergency Department Note ---
Entered by Bharti Morgan acting as a scribe for History of Present Illness General Chief complaint: Neuro Symptoms/Deficit Stated complaint: STROKE SYMPTOMS Time Seen by Provider: 04/08/19 10:49 Source: patient History of Present Illness Onset (ago): hour(s) 1 (and 5 minutes) Location: head Pain Consistency: + other (episode) Quality: + other (neuro symptoms) Associated symptoms: + chest pain, + shortness of breath and + other (inability to speak); no nausea/vomiting The patient is an 83 year old female who presents to the Emergency Room with complaints of an episode of neuro symptoms starting an hour and 5 minutes ago. The patient states that this morning she woke up with a cough and shortness of breath. She reports that the cough has been ongoing for several weeks. She states that she went to get breakfast and then noticed that every time she tried to speak, she couldnt get her words out. She states that at that time her called EMS. She notes that it ended up lasting for 5-10 minutes. She reports that while waiting for EMS, she felt like she was having chest pain. She states that it was a 5/10 in severity, but passed right after she took a Nitroglycerin. The patient notes that she was taken off Eliquis a few weeks ago because she had hematuria. She notes that she did take her Metoprolol this morning. She notes that she has been on an antibiotic for bumps on her scalp for 2 weeks. The patient denies nausea and vomiting. She currently denies any neurologic complaints, her speech has returned to normal and the speech issue has not recurred. Home Medications Home Medications Medication Instructions Recorded Confirmed Type levothyroxine 75 mcg PO QAM 04/01/18 04/08/19 History nitroglycerin [Nitrostat] 0.4 mg SUBLINGUAL DIRECTED PRN 04/01/18 04/08/19 History sertraline 25 mg PO HS 04/01/18 04/08/19 History simvastatin 40 mg PO QAM 04/01/18 04/08/19 History lisinopril 20 mg PO QAM #30 tab 04/02/18 04/08/19 Rx clonidine HCl 0.1 mg PO BID PRN 03/14/19 04/08/19 History metoprolol tartrate 12.5 mg PO BID 03/14/19 04/08/19 History gabapentin 300 mg PO DAILY 04/08/19 04/08/19 History mupirocin 1 applic TOPICAL UD 04/08/19 04/08/19 History Allergies Allergy/AdvReac Type Severity Reaction Status Date / Time codeine AdvReac Intermediate Vomiting Verified 04/08/19 12:03 Past Med/Surg History Medical History Acute NH, inferior wall Anxiety Basal cell carcinoma of nose CAD (coronary artery disease) Depression GERD (gastroesophageal reflux disease) Hearing deficit Hyperlipidemia Hypertension Hypertensive emergency Hypothyroidism Myocardial Infarction x2----follows with Dr. Guzmán NSTEMI (non-ST elevated myocardial infarction) Surgical History History of arthroscopy of left knee History of arthroscopy of right knee History of bilateral cataract extraction History of bilateral tubal ligation History of cardiac cath x2--2006 [place] [facility] [place]2013 @ [facility] x1 stent History of cholecystectomy History of colonoscopy History of dilatation and curettage multiple History of esophagogastroduodenoscopy (EGD) History of ethmoidectomy History of heart artery stent 2013 @ [facility] History of left breast biopsy benign History of repair of rectocele with cystocele History of tooth extraction History of total hysterectomy with bilateral salpingo-oophorectomy (BSO) History of total left knee replacement (TKR) History of total right knee replacement (TKR) History of wisdom tooth extraction S/P CABG x 5 (2006) 2006 [place] [facility] [place] post Mohs surgery for basal cell carcinoma Family History Son Family history of diabetes mellitus Son Family history of diabetes mellitus Other No family history of adverse response to anesthesia Social History Preferred Language: Turkish Communication Ability: Effective 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 and A total of 10 systems reviewed and were otherwise negative Physical Exam Vital Signs Vital Signs - 24 hr 04/08/19 10:46 04/08/19 10:49 04/08/19 10:53 Temperature 36.5 C Temperature Source Oral Pulse Rate 129 H 122 H 113 H Pulse Rate from SpO2 Sensor 125 H Respiratory Rate 20 23 28 H Respiratory Effort / Characteristics Spontaneous Blood Pressure 135/93 135/93 Blood Pressure Mean 107 107 Blood Pressure Position Lying Pulse Oximetry 96 94 Oxygen Delivery Method Room Air Sepsis Recent Fever Within 48 Hours No Sepsis New/Unexplained Change in Mental Status No Sepsis Action Taken by Nursing No Action Required 04/08/19 10:59 04/08/19 11:00 04/08/19 11:13 Temperature Temperature Source Pulse Rate 109 H 114 H Pulse Rate from SpO2 Sensor 119 H 117 H Respiratory Rate 20 Respiratory Effort / Characteristics Blood Pressure 114/76 Blood Pressure Mean 93 Blood Pressure Position Pulse Oximetry 95 93 Oxygen Delivery Method Room Air Sepsis Recent Fever Within 48 Hours Sepsis New/Unexplained Change in Mental Status Sepsis Action Taken by Nursing 04/08/19 11:37 04/08/19 12:00 04/08/19 12:30 Temperature Temperature Source Pulse Rate 79 85 82 Pulse Rate from SpO2 Sensor 87 84 85 Respiratory Rate 19 22 24 Respiratory Effort / Characteristics Blood Pressure 109/67 106/64 118/82 Blood Pressure Mean 72 78 88 Blood Pressure Position Pulse Oximetry 94 95 92 Oxygen Delivery Method Sepsis Recent Fever Within 48 Hours Sepsis New/Unexplained Change in Mental Status Sepsis Action Taken by Nursing 04/08/19 13:00 Temperature Temperature Source Pulse Rate 87 Pulse Rate from SpO2 Sensor 85 Respiratory Rate 23 Respiratory Effort / Characteristics Blood Pressure 124/90 Blood Pressure Mean 107 Blood Pressure Position Pulse Oximetry 93 Oxygen Delivery Method Sepsis Recent Fever Within 48 Hours Sepsis New/Unexplained Change in Mental Status Sepsis Action Taken by Nursing GENERAL: Patient is in no acute distress. HEENT: No acute trauma, normocephalic atraumatic, mucous membranes moist, no nasal congestion, no scleral icterus. NECK: No stridor, no adenopathy, no meningismus, trachea is midline. LUNGS: A few scattered wheezes and a few scattered crackles bilaterally. Equal breath sounds. No respiratory distress. HEART: Tachycardic. Irregular. No murmurs. ABDOMEN: Soft, nontender, bowel sounds positive, no hernias, no peritonitis. EXTREMITIES: No cyanosis or edema, full range of motion of all the joints without pain or difficulty, no signs for acute trauma. NEUROLOGIC: Oriented x 3, no acute motor or sensory deficits, no focal weakness. Normal speech. No facial droop. No extremity drift. No cerebellar deficit. SKIN: No rash, no jaundice, no diaphoresis. Course Course 1050: The patient was evaluated in room C4. A complete history and physical exam was performed. 1155: I reevaluated the patient and updated her on her test results. I discussed the treatment plan with her. She verbally agrees and understands. 1203: [facility] the [facility] She will evaluate the patient for further management. Administered Medications Aspirin (Ecotrin Ectab) 81 mg PO DAILY HEATHER Stop: 05/08/19 14:35 Last Admin: 04/08/19 16:43 Dose: 81 mg Documented by: [id number] Atorvastatin Calcium (Lipitor) 40 mg PO QAM HEATHER Stop: 05/08/19 14:35 Last Admin: 04/08/19 16:42 Dose: 40 mg Documented by: [id number] Furosemide 40 mg/ Syringe 4 mls @ 4 mls/min IV DAILY HEATHER Stop: 05/08/19 08:59 Last Admin: 04/08/19 17:17 Dose: 4 mls/min Documented by: [id number] Mupirocin (Bactroban 2%) 1 appln EXT DAILY HEATHER Stop: 05/08/19 15:14 Last Admin: 04/08/19 16:43 Dose: 1 appln Documented by: [id number] Pantoprazole Sodium (Protonix) 40 mg PO DAILY HEATHER Stop: 05/08/19 14:35 Last Admin: 04/08/19 16:43 Dose: 40 mg Documented by: [id number] Discontinued Medications Diltiazem HCl (Cardizem) 10 mg IV NOW STA Stop: 04/08/19 10:59 Last Admin: 04/08/19 11:15 Dose: 10 mg Documented by: [id number] Cosigned by: [id number] Sodium Chloride (Nss) 500 mls @ 999 mls/hr IV .Q31M HEATHER Stop: 04/08/19 11:30 Last Infusion: 04/08/19 11:51 Dose: 0 mls/hr Documented by: [id number] Admin: 04/08/19 11:15 Dose: 999 mls/hr Documented by: [id number] Diltiazem HCl 125 mg/ Dextrose 125 mls @ 0 mls/hr IV .Q0M STA; Protocol Stop: 04/08/19 10:59 Last Admin: 04/08/19 11:14 Dose: 5 mg/hr, 5 mls/hr Documented by: [id number] Cosigned by: [id number] Magnesium Sulfate/Dextrose (Magnesium Sulfate / D5w) 1 gm in 100 mls @ 100 mls/hr IV ONE ONE Stop: 04/08/19 16:14 Last Admin: 04/08/19 17:17 Dose: 100 mls/hr Documented by: [id number] Critical Care Time Critical Care Time: Yes Total Critical Care Time: 47 I have personally spent 47 minutes of critical care time in the direct management of this patient. This includes bedside care, interpretation of diagnostic studies, and testing, discussion with consultants, patient, and family members, and other required patient management activities. This 47 minutes is in excess of all separately billable procedures. Medical Decision Making Differential Diagnosis Differential diagnoses include rapid a-fib, stroke, TIA, intracranial bleeding, pneumonia, influenza, NH, electrolyte imbalance, anemia, UTI. Medical Records Attestation: I reviewed the patient's medical records. Home Medications Current Medication List: was personally reviewed by me Laboratory Data Attestation: I reviewed the patient's lab results. Result diagrams: 04/08/19 10:55 04/08/19 10:58 Lab Results 04/08/19 04/08/19 04/08/19 Range/Units 10:53 10:55 10:55 WBC 7.55 (4.8-10.8) K/uL RBC 4.90 (4.2-5.4) M/uL Hgb 12.6 (12.0-16.0) g/dL Hct 41.1 (37-47) % MCV 83.9 (80-100) fL MCH 25.7 (25-34) pg MCHC 30.7 L (32-36) g/dL RDW Std Deviation 47.7 H (36.4-46.3) fL RDW Coeff of Moe 15.6 H (11.5-14.5) % Plt Count 205 (130-400) K/uL MPV 11.4 H (7.4-10.4) fL Immature Gran % (Auto) 0.3 % Neut % (Auto) 76.2 % Lymph % (Auto) 12.7 % [place] % (Auto) 8.7 % Eos % (Auto) 2.1 % Baso % (Auto) 0.0 % Immature Gran # (Auto) 0.02 (0.00-0.02) K/uL Neut # (Auto) 5.75 (1.4-6.5) K/uL Lymph # (Auto) 0.96 L (1.2-3.4) K/uL [place] # (Auto) 0.66 H (0.11-0.59) K/uL Eos # (Auto) 0.16 (0-0.5) K/uL Baso # (Auto) 0.00 (0-0.2) K/uL PT (9.0-12.0) Seconds INR (0.9-1.1) APTT (21.0-31.0) Seconds PTT Ratio Sodium (136-145) mmol/L Potassium (3.5-5.1) mmol/L Chloride (98-107) mmol/L Carbon Dioxide (21-32) mmol/L Anion Gap (3-11) BUN (7-18) mg/dl Creatinine (0.6-1.2) mg/dl Est Cr Clr Drug Dosing ml/min Est GFR ( Amer) Est GFR (Non-Af Amer) BUN/Creatinine Ratio (10-20) Glucose (70-99) mg/dl POC Glucose 149 H (70-99) mg/dl Estimat Average Glucose 134 mg/dl Hemoglobin A1c 6.3 H (4.5-5.6) % Calcium (8.5-10.1) mg/dl Magnesium (1.8-2.4) mg/dl Total Bilirubin (0.2-1) mg/dl AST (15-37) U/L ALT (12-78) U/L Alkaline Phosphatase (45-117) U/L Troponin I (0-0.045) ng/ml NT-Pro-B Natriuret Pep (0-1800) pg/ml Total Protein (6.4-8.2) gm/dl Albumin (3.4-5.0) gm/dl Globulin (2.5-4.0) gm/dl Albumin/Globulin Ratio (0.9-2) TSH (0.300-4.500) uIu/ml Urine Color Urine Appearance (Clear) Urine pH (4.5-7.5) Ur Specific [place] (1.000-1.030) Urine Protein (Negative) Urine Glucose (UA) (Negative) Urine Ketones (Negative) Urine Blood (Negative) Urine Nitrite (Negative) Urine Bilirubin (Negative) Urine Urobilinogen (Negative) Ur Leukocyte Esterase (Negative) Influenza Type A Ag (Neg) Influenza Type B Ag (Neg) 04/08/19 04/08/19 04/08/19 Range/Units 10:58 10:58 10:58 WBC (4.8-10.8) K/uL RBC (4.2-5.4) M/uL Hgb (12.0-16.0) g/dL Hct (37-47) % MCV (80-100) fL MCH (25-34) pg MCHC (32-36) g/dL RDW Std Deviation (36.4-46.3) fL RDW Coeff of Moe (11.5-14.5) % Plt Count (130-400) K/uL MPV (7.4-10.4) fL Immature Gran % (Auto) % Neut % (Auto) % Lymph % (Auto) % [place] % (Auto) % Eos % (Auto) % Baso % (Auto) % Immature Gran # (Auto) (0.00-0.02) K/uL Neut # (Auto) (1.4-6.5) K/uL Lymph # (Auto) (1.2-3.4) K/uL [place] # (Auto) (0.11-0.59) K/uL Eos # (Auto) (0-0.5) K/uL Baso # (Auto) (0-0.2) K/uL PT 10.7 (9.0-12.0) Seconds INR 1.0 (0.9-1.1) APTT 23.4 (21.0-31.0) Seconds PTT Ratio 0.9 Sodium 143 (136-145) mmol/L Potassium 4.1 (3.5-5.1) mmol/L Chloride 111 H (98-107) mmol/L Carbon Dioxide 28 (21-32) mmol/L Anion Gap 5.0 (3-11) BUN 15 (7-18) mg/dl Creatinine 1.27 H (0.6-1.2) mg/dl Est Cr Clr Drug Dosing 35.1 ml/min Est GFR ( Amer) 44.6 Est GFR (Non-Af Amer) 38.5 BUN/Creatinine Ratio 12.0 (10-20) Glucose 159 H (70-99) mg/dl POC Glucose (70-99) mg/dl Estimat Average Glucose mg/dl Hemoglobin A1c (4.5-5.6) % Calcium 8.4 L (8.5-10.1) mg/dl Magnesium 1.9 (1.8-2.4) mg/dl Total Bilirubin 0.6 (0.2-1) mg/dl AST 21 (15-37) U/L ALT 31 (12-78) U/L Alkaline Phosphatase 65 (45-117) U/L Troponin I 0.066 H* (0-0.045) ng/ml NT-Pro-B Natriuret Pep 06885 H (0-1800) pg/ml Total Protein 6.6 (6.4-8.2) gm/dl Albumin 3.1 L (3.4-5.0) gm/dl Globulin 3.5 (2.5-4.0) gm/dl Albumin/Globulin Ratio 0.9 (0.9-2) TSH 2.330 (0.300-4.500) uIu/ml Urine Color Urine Appearance (Clear) Urine pH (4.5-7.5) Ur Specific [place] (1.000-1.030) Urine Protein (Negative) Urine Glucose (UA) (Negative) Urine Ketones (Negative) Urine Blood (Negative) Urine Nitrite (Negative) Urine Bilirubin (Negative) Urine Urobilinogen (Negative) Ur Leukocyte Esterase (Negative) Influenza Type A Ag (Neg) Influenza Type B Ag (Neg) 04/08/19 04/08/19 Range/Units 11:10 13:00 WBC (4.8-10.8) K/uL RBC (4.2-5.4) M/uL Hgb (12.0-16.0) g/dL Hct (37-47) % MCV (80-100) fL MCH (25-34) pg MCHC (32-36) g/dL RDW Std Deviation (36.4-46.3) fL RDW Coeff of Moe (11.5-14.5) % Plt Count (130-400) K/uL MPV (7.4-10.4) fL Immature Gran % (Auto) % Neut % (Auto) % Lymph % (Auto) % [place] % (Auto) % Eos % (Auto) % Baso % (Auto) % Immature Gran # (Auto) (0.00-0.02) K/uL Neut # (Auto) (1.4-6.5) K/uL Lymph # (Auto) (1.2-3.4) K/uL [place] # (Auto) (0.11-0.59) K/uL Eos # (Auto) (0-0.5) K/uL Baso # (Auto) (0-0.2) K/uL PT (9.0-12.0) Seconds INR (0.9-1.1) APTT (21.0-31.0) Seconds PTT Ratio Sodium (136-145) mmol/L Potassium (3.5-5.1) mmol/L Chloride (98-107) mmol/L Carbon Dioxide (21-32) mmol/L Anion Gap (3-11) BUN (7-18) mg/dl Creatinine (0.6-1.2) mg/dl Est Cr Clr Drug Dosing ml/min Est GFR ( Amer) Est GFR (Non-Af Amer) BUN/Creatinine Ratio (10-20) Glucose (70-99) mg/dl POC Glucose (70-99) mg/dl Estimat Average Glucose mg/dl Hemoglobin A1c (4.5-5.6) % Calcium (8.5-10.1) mg/dl Magnesium (1.8-2.4) mg/dl Total Bilirubin (0.2-1) mg/dl AST (15-37) U/L ALT (12-78) U/L Alkaline Phosphatase (45-117) U/L Troponin I (0-0.045) ng/ml NT-Pro-B Natriuret Pep (0-1800) pg/ml Total Protein (6.4-8.2) gm/dl Albumin (3.4-5.0) gm/dl Globulin (2.5-4.0) gm/dl Albumin/Globulin Ratio (0.9-2) TSH (0.300-4.500) uIu/ml Urine Color Yellow Urine Appearance Clear (Clear) Urine pH 6.0 (4.5-7.5) Ur Specific [place] 1.012 (1.000-1.030) Urine Protein Negative (Negative) Urine Glucose (UA) Negative (Negative) Urine Ketones Negative (Negative) Urine Blood Negative (Negative) Urine Nitrite Negative (Negative) Urine Bilirubin Negative (Negative) Urine Urobilinogen Negative (Negative) Ur Leukocyte Esterase Negative (Negative) Influenza Type A Ag Neg for Influ A (Neg) Influenza Type B Ag Neg for Influ B (Neg) Imaging Data Radiologist's Impression: Radiology results as stated below per my review and the radiologist's interpretation: SINGLE VIEW CHEST CLINICAL HISTORY: Generalized weakness. FINDINGS: An AP, portable, upright chest radiograph is compared to study dated 03/14/2019. The examination is degraded by portable technique and apical lordotic positioning. The patient is status post midline sternotomy. The heart is enlarged noting atherosclerotic calcification of the thoracic aorta. There is pulmonary vascular congestion. Small pleural effusions are identified. Bibasilar opacities likely represent atelectasis. No pneumothorax is seen. The skeletal structures are osteopenic. The bony thorax is grossly intact. IMPRESSION: 1. Cardiomegaly with evidence of mild congestive failure. 2. Trace pleural effusions. ACT 112: Negative or not required by law. Electronically signed by: Bill Betancur M.D. 04/08/2019 11:[address] SCAN OF THE BRAIN WITHOUT IV CONTRAST CLINICAL HISTORY: Expressive aphasia. COMPARISON STUDY: CT of the paranasal sinuses dated 10/14/2007. TECHNIQUE: Unenhanced axial CT scan of the brain is performed from the vertex to the skull base. A dose lowering technique was utilized adhering to the principles of ALARA. CT DOSE: 537.48 mGy.cm FINDINGS: Brain parenchyma: There are age-related involutional changes noting mild subcortical and periventricular microangiopathic change. There is no hemorrhage, mass effect, or evidence of acute territorial ischemia by CT criteria. Silvestre- white matter differentiation is preserved. No extra-axial fluid collection is seen. 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 Ventricles, sulci, cisterns: Prominent secondary to involutional change. Intracranial vasculature: There is atherosclerotic calcification of the cavernous carotid and vertebral arteries. Foci of gas within the cavernous sinuses are likely related to IV placement. Calvarium: Unremarkable. Sinuses and mastoids: The visualized paranasal sinuses are clear. The mastoid air cells are well pneumatized. Orbits: The bony orbits are grossly intact. There are bilateral ocular lens implants. IMPRESSION: There is no hemorrhage, mass effect, or evidence of acute territorial ischemia by CT criteria. ACT 112: Negative or not required by law. Electronically signed by: Bill Betancur M.D. 04/08/2019 11:37 AM ECG Data Attestation: I personally reviewed and interpreted this ECG as follows: Indication: + SOB/dyspnea Rate (beats per minute): 121 Rhythm: + atrial fibrillation ECG ST segments: no ST elevation ECG Findings: + PVCs and + Other (QT-c 457) Blood Pressure Blood Pressure Findings: Elevated blood pressure Blood Pressure Disposition: further management by hospitalist [facility] Narrative There is no leukocytosis or worrisome anemia. No coagulopathy. No significant electrolyte abnormality or kidney failure. No worrisome liver enzyme elevation. The patient appeared to be in a euthyroid state. EKG shows a rapid A. fib, no acute ischemia. Cardiac enzyme testing x1 is slightly elevated, this could be consistent with cardiac injury or just possibly mismatch. Urinalysis does not s how infection. Influenza testing was negative. Chest film shows some potential mild fluid overload, there was no pneumothorax, no obvious pneumonia. The patient presents with some expressive aphasia that lasted for about 10 or 15 minutes. It has now resolved. She is in rapid A. fib. She has a mildly elevated troponin. She has been holding her Eliquis lately. The patient was aggressively managed. She was given a small IV saline bolus. She was given a bolus of IV diltiazem and placed on a diltiazem drip. With the above treatment, the patient is much more comfortable. The heart rate has decreased. She does not seem in any distress. No recurrence of her expressive aphasia. I do think further work-up is warranted. She appears to have a flulike illness which has led to cough and congestion, and possibly the rapid A. fib. Cardiac monitoring and further cardiac work-up is warranted especially with the elevated troponin value noted today. Further stroke work-up is warranted. Of note, as the patient's neurologic symptoms had resolved, a stroke alert was not called. The patient was not a TPA candidate as her stroke scale was 0 and her symptoms had resolved. In addition, she recently was taken off of Eliquis for urinary bleeding/hematuria. I spoke to the patient, I talked to the on-call hospitalist. Case management has been involved. Continuous Cardiac Monitoring: An order was placed for continuous cardiac monitoring. The monitor shows a rate of 129 with rapid atrial fibrillation and an occasional PVC. Impression & Plan Atrial fibrillation, rapid, Stroke-like symptoms, Elevated troponin, Shortness of breath Discharge Plan Visit Data *Final* Discharge Date/Time: 04/08/19 13:47 Chief Complaint: Neuro Symptoms/Deficit Stated Complaint: STROKE SYMPTOMS ED Provider: Bill Patel Discharge Problem: Atrial fibrillation, rapid, Stroke-like symptoms, Elevated troponin, Shortness of breath Patient Disposition: Admitted As Inpatient Discharge Instructions Interventions: ED Discharge Assessment Last Done: 04/08/19 13:47 The scribe's documentation has been prepared under my direction and personally reviewed by me in its entirety. I confirm that the note above accurately reflects all work, treatment, procedures, and medical decision making performed by me.
[2019-04-08] MEDS: ATORVASTATIN 40 MG TAB PO SCH (16:42)
[2019-04-08] MEDS: PANTOprazole 40 MG TAB PO SCH (16:43)
[2019-04-08] MEDS: MUPIROCIN 2% OINT 22 GM TUBE EXT SCH (16:43)
[2019-04-08] MEDS: ASPIRIN 81 MG ECTAB PO SCH (16:43)
--- NOTE | 2019-04-08 16:44 | Ultrasound Report ---
ULTRASOUND OF THE CAROTID ARTERIES CLINICAL HISTORY: Stroke. COMPARISON STUDY: No priors. TECHNIQUE: Real-time, grayscale, and color Doppler sonography of the carotid arteries is performed. I mages are reviewed in the transverse and longitudinal planes. FINDINGS: Blood pressures were not assessed due to the presence of IV catheters. The carotid arteries are patent bilaterally and demonstrate antegrade flow. There is mild echogenic a therosclerotic plaque seen bilaterally. Normal doppler arterial waveforms are seen throughout. Veloci ty measurements are listed below. Common carotid peak systolic velocity (cm/sec): RIGHT: 47 LEFT: 57 ICA proximal peak systolic velocity (cm/sec): RIGHT: 82 LEFT: 45 ICA mid peak systolic velocity (cm/sec): RIGHT: 71 LEFT: 51 ICA distal peak systolic velocity (cm/sec): RIGHT: 56 LEFT: 71 ICA/CC peak systolic ratio: RIGHT: 1.7 LEFT: 1.2 Antegrade flow was shown in the vertebral arteries. The external carotid arteries are patent. IMPRESSION: 1. There is no sonographic evidence of hemodynamically significant stenosis in the right or left duong tid arterial system. 2. Antegrade flow is shown in the vertebral arteries. ACT 112: Negative or not required by law. Electronically signed by: Bill Betancur M.D. 04/08/2019 4:43 PM
--- NOTE | 2019-04-08 16:49 | Magnetic Resonance Report ---
MRI OF THE BRAIN WITHOUT IV CONTRAST CLINICAL HISTORY: Expressive aphasia COMPARISON STUDY: CT of the brain dated 04/08/2019. TECHNIQUE: MRI of the brain was performed utilizing various T1 and T2-weighted sequences in the axial , sagittal, and coronal planes. IV contrast was not administered for this examination. FINDINGS: Brain parenchyma: There is a 1.5 cm focus of restricted diffusion identified in the left frontal jamee ex consistent with acute to subacute ischemia. No additional foci of restricted diffusion are identif ied. There is no hemorrhage or mass effect. There is age-related involutional change noting mild subc ortical and periventricular microangiopathic disease. Chronic lacunar infarcts are seen in the left c erebellar hemisphere in the left caudate head. Silvestre-white matter differentiation is preserved. No ext ra-axial fluid collection is seen. The cerebellar tonsils are normal in configuration. Ventricles, sulci, and cisterns: Normal in configuration. Pituitary and sella: Unremarkable. Intracranial vasculature: Normal flow voids are maintained at the skull base. Orbits: The bony orbits are grossly intact. Orbital contents are normal in appearance noting bilatera l ocular lens implants. Sinuses and mastoids: There is mild mucosal thickening ethmoid sinuses. The remaining paranasal sinus es are clear. The mastoid air cells are well pneumatized. Calvarium: Unremarkable. Cervical cord: Partially visualized cervical spinal cord is normal in morphology and signal intensity . IMPRESSION: 1. There is a small acute to subacute infarct identified in the left frontal cortex. 2. No additional foci of acute ischemia are identified. 3. There is no hemorrhage or mass effect. ACT 112: Negative or not required by law. Electronically signed by: Bill Betancur M.D. 04/08/2019 4:47 PM
[2019-04-08] MEDS: FUROSEMIDE 40 MG in SYRINGE 0 ML IV SCH (17:17)
[2019-04-08] MEDS ORDERED: ASPIRIN 81 MG CHEW PO STA ×2 (17:31→17:40)
[2019-04-08] MEDS ORDERED: dilTIAZem HCL 125 MG in DEXTROSE 5% 100 ML IV SCH (19:00)
--- NOTE | 2019-04-08 19:12 | Cardiology Consultation ---
Date of Consultation April 08, 2019 Assessment & Plan (1) Atrial fibrillation, rapid: It is unclear to me whether she has paroxysmal or persistent atrial fibrillation. The EKGs in her record both show atrial fibrillation. Her rates appear better controlled currently likely due to diltiazem infusion. Whether her rate control has suffered due to her recent event or whether she has suboptimal rate control other times is unclear. However, I would agree with continuing the diltiazem currently and doubling her metoprolol tartrate to see if we can achieve better control with a single agent. She is not appear to be overtly symptomatic from the arrhythmia itself. I would recommend resumption of systemic anticoagulation. It seems that her Eliquis was stopped due to hematuria. She is scheduled to see a urologist but I cannot find any current evaluation to explain her hematuria. I think would be more important for her to be on anticoagulation given her known embolic event into worry about recurrent hematuria. The hematuria may require an evaluation with cystoscopy or other imaging. I would resume the anticoagulation when it is felt to be safe from a neurologic standpoint. The patient was informed of my recommendation but she has yet to decide whether she would resume ant icoagulation. (2) Elevated troponin: Very mild elevations. She did have an episode of very transient chest discomfort this morning which be unlikely to cause any elevation given the short duration of the symptom. We will see what the next troponin looks like. If it is in the similar range I would not pursue any additional evaluation. I think the likelihood that she had an acute coronary syndrome is low. (3) CAD (coronary artery disease): She has extensive coronary disease and history of an inferior infarct. She reports symptoms of angina at times with the symptoms are somewhat atypical and generally not exertional. They have not changed in character over many years. She can be maintained on her usual medical regimen which would include metoprolol and simvastatin. As noted above I would recommend resumption of anticoagulation. Aspirin could be omitted from a cardiac standpoint if this was felt to increase her risk of bleeding complications. (4) Shortness of breath: She appears to have an element of pulmonary vascular congestion. This is based on history ache, examination and x-ray findings. She was administered some Lasix at the time of admission and will see how she responds. Repeat echocardiogram would also seem reasonable and has been ordered. History of Present Illness Reason for Consultation: Atrial fibrillation, chest pain, abnormal cardiac biomarkers Requesting Physician: Vidal Attending Physician: Thai Drake MD History of Present Illness The patient is an 83-year-old woman with an extensive history of cardiac disease to include prior surgical and percutaneous revascularization as well as recently diagnosed atrial fibrillation. It seems that she was feeling well earlier this morning but noticed some difficulty with word finding when doing a puzzle at breakfast time. She also noted some difficulty chewing he when her came to the breakfast table she had difficulty with speech. He states she could not speak for a limited period of time. Based on the symptoms she presented to the emergency room for evaluation. The symptoms appear to subsequently have resolved. She cannot recall similar episodes in the past. She states that approximately 1 week ago she was sick. However this was characterized by diffuse set of symptoms to include weakness and lethargy. Additional symptoms recently have included a gastrointestinal disturbance. This is manifest by some abdominal discomfort and loose stools. She also has an element of dyspnea that appears to have been progressive over the past year. She currently has some dyspnea with activity such as at ascending stairs or walking for extended distances. She did not describe overt orthopnea or paroxysmal nocturnal dyspnea. She has been unaware of palpitations. She is not describe dizziness or lightheadedness. No recent syncope. She does have occasional episodes of chest discomfort. These can vary in character. She has several episodes per year for which she takes nitroglycerin. She did have an episode today during her event which was characterized as precordial, very mild and brief. However, based on her other symptoms she felt the need to take a nitroglycerin which resolved the chest discomfort. Allergies Allergy/AdvReac Type Severity Reaction Status Date / Time codeine AdvReac Intermediate Vomiting Verified 04/08/19 12:03 Home Medications Home Medications Medication Instructions Recorded Confirmed Type levothyroxine 75 mcg PO QAM 04/01/18 04/08/19 History nitroglycerin [Nitrostat] 0.4 mg SUBLINGUAL DIRECTED PRN 04/01/18 04/08/19 History sertraline 25 mg PO HS 04/01/18 04/08/19 History simvastatin 40 mg PO QAM 04/01/18 04/08/19 History lisinopril 20 mg PO QAM #30 tab 04/02/18 04/08/19 Rx clonidine HCl 0.1 mg PO BID PRN 03/14/19 04/08/19 History metoprolol tartrate 12.5 mg PO BID 03/14/19 04/08/19 History gabapentin 300 mg PO DAILY 04/08/19 04/08/19 History mupirocin 1 applic TOPICAL UD 04/08/19 04/08/19 History Patient History Medical History Acute VA, inferior wall Anxiety Basal cell carcinoma of nose CAD (coronary artery disease) Depression GERD (gastroesophageal reflux disease) Hearing deficit Hyperlipidemia Hypertension Hypertensive emergency Hypothyroidism Myocardial Infarction x2----follows with Dr. Guzmán NSTEMI (non-ST elevated myocardial infarction) Surgical History History of arthroscopy of left knee History of arthroscopy of right knee History of bilateral cataract extraction History of bilateral tubal ligation History of cardiac [place] [facility] [place] @ [facility] x1 stent History of cholecystectomy History of colonoscopy History of dilatation and curettage multiple History of esophagogastroduodenoscopy (EGD) History of ethmoidectomy History of heart artery stent 2013 @ [facility] History of left breast biopsy benign History of repair of rectocele with cystocele History of tooth extraction History of total hysterectomy with bilateral salpingo-oophorectomy (BSO) History of total left knee replacement (TKR) History of total right knee replacement (TKR) History of wisdom tooth extraction S/P CABG x 5 (2006) [place] [facility] [place] post Mohs surgery for basal cell carcinoma Family History Son Family history of diabetes mellitus Son Family history of diabetes mellitus Other No family history of adverse response to anesthesia Social History Preferred Language: [place] Communication Ability: Effective Stop Attacher Required: No Beliefs That Will Affect Care: None marital status: Current Living Situation: Spouse current occupational status: retired Feels Safe at Home: Yes Smoking Status: Never smoker Second Hand Exposure: No ; Hx Alcohol Use: No Hx Substance Use: No Review of Systems Review of Systems: All systems reviewed & are unremarkable except as noted in HPI & below Per HPI. No recent constitutional symptoms such as fevers or chills. No recent hematuria. no dysuria Physical Exam Physical Exam: She is alert and oriented x3. Mood affect appear normal. She answered all questions appropriately. HEENT: Sclerae are anicteric. Pupils are equal and reactive to light and accommodation. Extraocular movements were intact. Neuro: Cranial nerves intact Neck: Examination of the submandibular region did not reveal any significant lymphadenopathy. Carotids are palpable bilaterally and free of bruits on auscultation. There was no evidence of jugular venous distention. The thyroid was not enlarged. Lungs: Lungs are clear to auscultation bilaterally. There are no rales wheezes or rhonchi. She has normal respiratory effort without use of accessory muscles. There is normal pulmonary excursion. Cardiac: The rhythm was irregular. S1 and S2 were normal. There are no murmurs on examination. The PMI was not markedly displaced on palpation. Abdomen: The abdomen was soft and nontender. Extremities: Patient has bilateral radial pulses that are equal in intensity. There is no evidence cyanosis or clubbing. There was no evidence of significant peripheral edema bilaterally. Skin: There are no rashes noted on examination today. Results & Data Vital Signs (Past 12 Hours) Vital Signs Temp Pulse Pulse Resp BP BP Pulse Ox 04/08/19 14:37 36.5 C 83 19 145/79 H 97 04/08/19 13:30 87 22 122/89 92 04/08/19 13:00 87 23 124/90 93 04/08/19 12:30 82 24 118/82 92 04/08/19 12:00 85 22 106/64 95 04/08/19 11:37 79 19 109/67 94 04/08/19 11:13 114 H 114/76 93 04/08/19 11:00 109 H 20 95 04/08/19 10:53 36.5 C 113 H 28 H 135/93 94 04/08/19 10:49 122 H 23 04/08/19 10:46 129 H 20 135/93 96 Laboratory Results Abnormal Lab Results 04/08/19 04/08/19 04/08/19 10:53 10:55 10:55 WBC 7.55 RBC 4.90 Hgb 12.6 Hct 41.1 MCV 83.9 MCH 25.7 MCHC 30.7 L RDW Std Deviation 47.7 H RDW Coeff of Moe 15.6 H Plt Count 205 MPV 11.4 H Immature Gran % (Auto) 0.3 Neut % (Auto) 76.2 Lymph % (Auto) 12.7 [place] % (Auto) 8.7 Eos % (Auto) 2.1 Baso % (Auto) 0.0 Immature Gran # (Auto) 0.02 Neut # (Auto) 5.75 Lymph # (Auto) 0.96 L [place] # (Auto) 0.66 H Eos # (Auto) 0.16 Baso # (Auto) 0.00 PT INR APTT PTT Ratio Sodium Potassium Chloride Carbon Dioxide Anion Gap BUN Creatinine Est Cr Clr Drug Dosing Est GFR ( Amer) Est GFR (Non-Af Amer) BUN/Creatinine Ratio Glucose POC Glucose 149 H Estimat Average Glucose 134 Hemoglobin A1c 6.3 H Calcium Magnesium Total Bilirubin AST ALT Alkaline Phosphatase Troponin I NT-Pro-B Natriuret Pep Total Protein Albumin Globulin Albumin/Globulin Ratio TSH Urine Color Urine Appearance Urine pH Ur Specific [place] Urine Protein Urine Glucose (UA) Urine Ketones Urine Blood Urine Nitrite Urine Bilirubin Urine Urobilinogen Ur Leukocyte Esterase Stl C. diff Tox B Gene Influenza Type A Ag Influenza Type B Ag 04/08/19 04/08/19 04/08/19 10:58 10:58 10:58 WBC RBC Hgb Hct MCV MCH MCHC RDW Std Deviation RDW Coeff of Moe Plt Count MPV Immature Gran % (Auto) Neut % (Auto) Lymph % (Auto) [place] % (Auto) Eos % (Auto) Baso % (Auto) Immature Gran # (Auto) Neut # (Auto) Lymph # (Auto) [place] # (Auto) Eos # (Auto) Baso # (Auto) PT 10.7 INR 1.0 APTT 23.4 PTT Ratio 0.9 Sodium 143 Potassium 4.1 Chloride 111 H Carbon Dioxide 28 Anion Gap 5.0 BUN 15 Creatinine 1.27 H Est Cr Clr Drug Dosing 35.1 Est GFR ( Amer) 44.6 Est GFR (Non-Af Amer) 38.5 BUN/Creatinine Ratio 12.0 Glucose 159 H POC Glucose Estimat Average Glucose Hemoglobin A1c Calcium 8.4 L Magnesium 1.9 Total Bilirubin 0.6 AST 21 ALT 31 Alkaline Phosphatase 65 Troponin I 0.066 H* NT-Pro-B Natriuret Pep 36113 H Total Protein 6.6 Albumin 3.1 L Globulin 3.5 Albumin/Globulin Ratio 0.9 TSH 2.330 Urine Color Urine Appearance Urine pH Ur Specific [place] Urine Protein Urine Glucose (UA) Urine Ketones Urine Blood Urine Nitrite Urine Bilirubin Urine Urobilinogen Ur Leukocyte Esterase Stl C. diff Tox B Gene Influenza Type A Ag Influenza Type B Ag 04/08/19 04/08/19 04/08/19 11:10 13:00 14:53 WBC RBC Hgb Hct MCV MCH MCHC RDW Std Deviation RDW Coeff of Moe Plt Count MPV Immature Gran % (Auto) Neut % (Auto) Lymph % (Auto) [place] % (Auto) Eos % (Auto) Baso % (Auto) Immature Gran # (Auto) Neut # (Auto) Lymph # (Auto) [place] # (Auto) Eos # (Auto) Baso # (Auto) PT 10.7 INR 1.0 APTT 23.9 PTT Ratio 0.9 Sodium Potassium Chloride Carbon Dioxide Anion Gap BUN Creatinine Est Cr Clr Drug Dosing Est GFR ( Amer) Est GFR (Non-Af Amer) BUN/Creatinine Ratio Glucose POC Glucose Estimat Average Glucose Hemoglobin A1c Calcium Magnesium Total Bilirubin AST ALT Alkaline Phosphatase Troponin I NT-Pro-B Natriuret Pep Total Protein Albumin Globulin Albumin/Globulin Ratio TSH Urine Color Yellow Urine Appearance Clear Urine pH 6.0 Ur Specific [place] 1.012 Urine Protein Negative Urine Glucose (UA) Negative Urine Ketones Negative Urine Blood Negative Urine Nitrite Negative Urine Bilirubin Negative Urine Urobilinogen Negative Ur Leukocyte Esterase Negative Stl C. diff Tox B Gene Influenza Type A Ag Neg for Influ A Influenza Type B Ag Neg for Influ B 04/08/19 04/08/19 14:53 17:40 WBC RBC Hgb Hct MCV MCH MCHC RDW Std Deviation RDW Coeff of Moe Plt Count MPV Immature Gran % (Auto) Neut % (Auto) Lymph % (Auto) [place] % (Auto) Eos % (Auto) Baso % (Auto) Immature Gran # (Auto) Neut # (Auto) Lymph # (Auto) [place] # (Auto) Eos # (Auto) Baso # (Auto) PT INR APTT PTT Ratio Sodium Potassium Chloride Carbon Dioxide Anion Gap BUN Creatinine Est Cr Clr Drug Dosing Est GFR ( Amer) Est GFR (Non-Af Amer) BUN/Creatinine Ratio Glucose POC Glucose Estimat Average Glucose Hemoglobin A1c Calcium Magnesium Total Bilirubin AST ALT Alkaline Phosphatase Troponin I 0.061 H* NT-Pro-B Natriuret Pep Total Protein Albumin Globulin Albumin/Globulin Ratio TSH Urine Color Urine Appearance Urine pH Ur Specific [place] Urine Protein Urine Glucose (UA) Urine Ketones Urine Blood Urine Nitrite Urine Bilirubin Urine Urobilinogen Ur Leukocyte Esterase Stl C. diff Tox B Gene Influenza Type A Ag Influenza Type B Ag Diagnostic Findings Chest x-ray was suggestive of pulmonary vascular congestion Brain MRI suggested a left frontal infarct Carotid Doppler was normal Echocardiogram performed 04/01/2018 revealed moderate left atrial dilation, moderate right atrial dilation, [id number] mitral regurgitation and normal LV systolic function. ECG Additional Comments: EKG demonstrated atrial fibrillation with rapid ventricular response. PG Care Time/CCT Total # of Minutes Spent Total Time Spent with Patient: Total time spent is greater than 50% in coordination of care (as documented) at patient's floor/unit and/or counseling patient: Coding Level of Care Code 44492 Initial Inpt Care Lvl 3 Diagnoses Atrial fibrillation, rapid I48.91 Elevated troponin R79.89 CAD (coronary artery disease) I25.10 Shortness of breath R06.02
--- NOTE | 2019-04-08 20:18 | Electrocardiogram Report ---
Test Reason : Blood Pressure : / mmHG Vent. Rate : 121 BPM Atrial Rate : 117 BPM P-R Int : 000 ms QRS Dur : 104 ms QT Int : 322 ms P-R-T Axes : 000 -62 078 degrees QTc Int : 457 ms Atrial fibrillation with rapid ventricular response with premature ventricular or aberrantly conducte d complexes Left axis deviation Poor R wave progression, consider anterior TN vs. lead placement vs. LVH Abnormal ECG When compared with ECG of 14-MAR-2019 19:41, T wave amplitude has decreased in Anterior leads Confirmed by Jos Villalba ([id number] on 04/08/2019 8:18:31 PM Referred By: Confirmed By:Jim Villalba
[2019-04-08] MEDS: SERTRALINE HCL 50 MG TABLET PO SCH (20:20)
[2019-04-08] MEDS: METOPROLOL TARTRATE 25 MG TAB PO SCH (20:21)
[2019-04-08] MEDS ORDERED: METOPROLOL TARTRATE 25 MG TAB PO SCH (21:00)
[2019-04-09] MEDS: LEVOTHYROXINE SODIUM 75 MCG TABLET PO SCH (05:46)
[2019-04-09 06:58] LABS: Basophils # (auto) 0.01 K/uL (0-0.2); Basophils % (auto) 0.1 %; Eosinophils % (auto) 2.7 %; Hematocrit (blood only) 38.4 % (37-47); Hemoglobin 11.8 g/dL (12.0-16.0); Immature Granulocytes # (auto) 0.01 K/uL (0.00-0.02); Immature Granulocytes % (auto) 0.1 %; Lymphocytes # (auto) 1.32 K/uL (1.2-3.4); Lymphocytes % (auto) 17.8 %; Mean Corpuscular Hemoglobin 25.5 pg (25-34); Mean Corpuscular Hgb Conc 30.7 g/dL (32-36); Mean Corpuscular Volume 83.1 fL (80-100); Monocytes # (auto) 0.85 K/uL (0.11-0.59); Monocytes % (auto) 11.5 %; Neutrophils # (auto) 5.02 K/uL (1.4-6.5); Neutrophils % (auto) 67.8 %; Platelet Count 210 K/uL (130-400); RDW Coefficient of Variation 15.6 % (11.5-14.5); RDW Standard Deviation 47.2 fL (36.4-46.3); Red Blood Count 4.62 M/uL (4.2-5.4); White Blood Count 7.41 K/uL (4.8-10.8)
[2019-04-09 07:24] LABS: Albumin Level 2.9 gm/dl (3.4-5.0); BUN Creatinine Ratio 11.7 (10-20); Calcium 8.5 mg/dl (8.5-10.1); Creatinine Clr Calc Pharmacy 34.2 ml/min; Est GFR (African American) 46.3; Potassium 4.2 mmol/L (3.5-5.1)
[2019-04-09 07:27] LABS: Albumin Globulin Ratio 0.9 (0.9-2); Bilirubin,Total 0.6 mg/dl (0.2-1); Globulin 3.2 gm/dl (2.5-4.0); Total Protein 6.1 gm/dl (6.4-8.2)
[2019-04-09] MEDS: MUPIROCIN 2% OINT 22 GM TUBE EXT SCH (08:29)
[2019-04-09] MEDS: ASPIRIN 81 MG ECTAB PO SCH (08:29)
[2019-04-09] MEDS: FUROSEMIDE 40 MG in SYRINGE 0 ML IV SCH (08:31)
[2019-04-09] MEDS: lisinopriL 20 MG TAB PO SCH (08:32)
[2019-04-09] MEDS: ATORVASTATIN 40 MG TAB PO SCH (08:32)
[2019-04-09] MEDS: GABAPENTIN 300 MG CAP PO SCH (08:32)
[2019-04-09] MEDS: METOPROLOL TARTRATE 25 MG TAB PO SCH ×4 (08:32→23:15)
[2019-04-09] MEDS: PANTOprazole 40 MG TAB PO SCH (08:32)
--- NOTE | 2019-04-09 09:37 | Neurology Consultation ---
Date of Consultation April 09, 2019 Assessment & Plan (1) Acute CVA (cerebrovascular accident): (2) Atrial fibrillation, rapid: (3) Expressive aphasia: (4) Hypertension: (5) Dyslipidemia: Patient had the acute onset of expressive aphasia April 08 lasting a short time. By the time she got to the emergency room continuing into today she has no neurologic deficits. Her NIH Stroke Scale equals 0. There are no focal findings, meningeal signs, or encephalopathy. MRI of the brain shows a small acute left frontal cortex stroke. The etiology of this is likely embolic given her atrial fibrillation. Unfortunately, she was taken off Eliquis recently because of hematuria. Carotid ultrasound was unremarkable and echocardiogram is pending Patient has persistent atrial fibrillation and actually had a run of 14 beats of V-tach last night. She is followed closely by Cardiology. Risk factors for stroke also include hypertension and dyslipidemia. Blood pressure was mildly elevated on admission but is improved at 134/81 currently. Recommendations: 1. Restart Eliquis to prevent embolic stroke in setting of atrial fibrillation. 2. Continue 81 milligram aspirin tablet to prevent small vessel ischemia. 3. Increase activity as able. 4. Control blood pressure as you are doing , aiming for a mean arterial pressure of 95-100. 5. The patient is not a high dose statin candidate given her lipid parameters and advanced age. She would be at risk for intracranial hemorrhage. Continue atorvastatin 40 milligrams daily 6. Awaiting echocardiogram results. 7. Hemoglobin A1c of 6.3 is borderline high. Control glucose through diet. 8. Otherwise, I have no further recommendations to make on this patient. Please contact me if I can be of further assistance. Overall, I spent a total of 100 minutes with this case including review of records, review of MRI films, direct evaluation the patient bedside, and discussing the case with the patient at bedside, RN at bedside, and Dr. Nuñez, including differential diagnosis and treatment options. History of Present Illness Reason for Consultation: Patient is an 83-year-old, who I was asked to see the request of Dr. francis, for neurologic consultation regarding stroke. Requesting Physician: Dr. Francis Attending Physician: Ancelmo Nuñez, DO History of Present Illness Patient has no history of stroke but does have history of 2 MIs, coronary disease, hypertension, and dyslipidemia. Approximately month ago or so she was noted to be in atrial fibrillation and put on Eliquis. She had always been on 81 milligram aspirin tablet for many years. Because of hematuria Eliquis was discontinued. On the morning of April 08 she woke with some cough and shortness of breath (which she has had for about 3 weeks. Around [id number] she was eating breakfast trying to do the Jumble puzzle, when she noted that she was having difficulty with this task. She is usually very sharp with this but was not able to figure it out. She felt ill and noticed that she was chewing and not swallowing (although she was not choking). She put her head down on the table and her asked her if she felt all right. She could not get the words out. She made none since ounce. She knew what she wanted to say but could not formulate the words. This upset her. She noted no vision problems, headache, new pain, weakness or numbness, incontinence, or confusion. He last about 10 minutes or so and then resolved. Her speech was back to normal. On April 08 at 1046, she read the emergency room with a temperature of 36.5, pulse of 129 and in atrial fibrillation, respiratory rate of 20, blood pressure 135/93 (mean arterial pressure of 107) and O2 saturation 96 percent. She had a normal neurologic examination with no speech difficulties and an NIH of 0. She was therefore not a tPA candidate. CBC and Chem profile were unremarkable except for glucose of 134 and creatinine 1.27. Urinalysis was unremarkable and she had negative influenza titers. TSH was normal at 2.33. Hemoglobin A1c was 6.3. Chest x-ray showed mild congestive heart failure and cardiomegaly. CT scan of the head was unremarkable for acute changes. Triglycerides are 87 and total cholesterol 99. All labs were reviewed Carotid ultrasound was unremarkable. This was reviewed with the patient. MRI of the brain showed acute left frontal stroke approximately 1.5 centimeters. There was mild generalized atrophy and old small vessel ischemic changes only. The MRI looks very good for someone who is 83. I reviewed these films with the patient. This morning the patient feels well although she is somewhat tired. She has bee n in atrial fibrillation since admission mostly in the 80s. She had a 14 beat of V-tach last night and Cardiology is aware. They recommend adding Eliquis back and continuing the aspirin because of her AFib with rapid ventricular rate. Allergies Allergy/AdvReac Type Severity Reaction Status Date / Time codeine AdvReac Intermediate Vomiting Verified 04/08/19 12:03 Home Medications Home Medications Medication Instructions Recorded Confirmed Type levothyroxine 75 mcg PO QAM 04/01/18 04/08/19 History nitroglycerin [Nitrostat] 0.4 mg SUBLINGUAL DIRECTED PRN 04/01/18 04/08/19 History sertraline 25 mg PO HS 04/01/18 04/08/19 History simvastatin 40 mg PO QAM 04/01/18 04/08/19 History lisinopril 20 mg PO QAM #30 tab 04/02/18 04/08/19 Rx clonidine HCl 0.1 mg PO BID PRN 03/14/19 04/08/19 History metoprolol tartrate 12.5 mg PO BID 03/14/19 04/08/19 History gabapentin 300 mg PO DAILY 04/08/19 04/08/19 History mupirocin 1 applic TOPICAL UD 04/08/19 04/08/19 History Patient History Medical History Acute NM, inferior wall Anxiety Basal cell carcinoma of nose CAD (coronary artery disease) Depression GERD (gastroesophageal reflux disease) Hearing deficit Hyperlipidemia Hypertension Hypertensive emergency Hypothyroidism Myocardial Infarction x2----follows with Dr. Guzmán NSTEMI (non-ST elevated myocardial infarction) Surgical History History of arthroscopy of left knee History of arthroscopy of right knee History of bilateral cataract extraction History of bilateral tubal ligation History of cardiac [place] [facility] [place] [facility] x1 stent History of cholecystectomy History of colonoscopy History of dilatation and curettage multiple History of esophagogastroduodenoscopy (EGD) History of ethmoidectomy History of heart artery stent 2013 @ [facility] History of left breast biopsy benign History of repair of rectocele with cystocele History of tooth extraction History of total hysterectomy with bilateral salpingo-oophorectomy (BSO) History of total left knee replacement (TKR) History of total right knee replacement (TKR) History of wisdom tooth extraction S/P CABG x 5 (2006) [place] [facility] [place] post Mohs surgery for basal cell carcinoma Family History Son Family history of diabetes mellitus Son Family history of diabetes mellitus Other No family history of adverse response to anesthesia Social History Preferred Language: Sinhala Communication Ability: Effective 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 Beliefs That Will Affect Care: None marital status: Current Living Situation: Spouse current occupational status: retired other: 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 [place] Feels Safe at Home: Yes Smoking Status: Never smoker Second Hand Exposure: No ; Hx Alcohol Use: No Hx Substance Use: No Review of Systems Constitutional: + fatigue; no fever and no weakness Eyes: no diplopia, no eye pain and no worsening vision Ear, Nose, Mouth, Throat: + hearing loss; no ear pain, no tinnitus, no dizziness, no snoring, no hoarseness and no dysphagia Respiratory: no cough and no dyspnea Cardiovascular: no chest pain, no palpitations and no lightheadedness Gastrointestinal: no abdominal pain, no nausea and no vomiting Genitourinary: no dysuria, no urinary frequency and no urinary incontinence Musculoskeletal: no back pain, no neck pain, no radicular pain, no joint pain and no myalgia Integumentary: no rash and no lesions Neurologic: no gait abnormality, no localized weakness, no generalized weakness, no tingling, no numbness, no tremor(s), no abnormal movements, no headache(s), no abnormal speech, no confusion and no memory loss Psychiatric: no depression, no irritability, no anxiety, no difficulty concentrating, no confusion and no hallucinations Endocrine: + fatigue; no flushing Hematologic / Lymphatic: no easy bleeding and no easy bruising Allergy / Immunological: no urticaria and no problem reported Physical Exam Physical Exam: The patient is right-handed. The patient is awake, alert, and attentive. Speech is normal without any aphasia or dysarthria. She can name objects, repeat phrases, and has normal spontaneous speech. She has good ability to do simple calculations.. Mentation and thought processes are intact, with orientation to person, place and time, and normal fund of knowledge. Attention and concentration are normal. Mood and affect are normal and appropriate. General appearance and grooming are normal. Short and long-term memory are intact. The discs are sharp with positive venous pulsations bilaterally. There are no exudates, hemorrhages, or blood vessel changes seen. Pupils are 4 mm bilaterally and reactive to light. Extraocular eye muscles are intact without nystagmus. Visual acuity and visual sepulveda seem normal grossly to confrontation. There are no deficits to sensation in the face in all 3 distributions of the fifth cranial nerve bilaterally. Corneal reflexes are positive bilaterally. Facial strength and symmetry was normal bilaterally. Hearing seems normal to whisper and finger rub bilaterally. Palate moves well without asymmetry. There is normal sternocleidomastoid and trapezius (shoulder shrug) strength bilaterally. Tongue is midline with good strength bilaterally. Neck has a full range of motion without discomfort. There are no cervical bruits bilaterally. There are no cranial or ocular bruits. Heart is without murmur. There is a regular rhythm and rate. Cervical, thoracic, and lumbar spine are nontender to palpation. Gait is narrow based, with good arm swing, turns, and stance. Balance is normal eyes open or closed. With outstretched arms there is no drift. There are no resting, postural, or action tremors. There is no ataxia with finger to nose testing. There is good facility in the hands. No other abnormal involuntary movements are noted. Motor strength is 5/5 diffusely in the arms bilaterally including deltoids, biceps, triceps, brachioradialis, wrist flexors and extensors, semiautomatic stitcher operator, and intrinsic hand muscles. Motor strength is 5/5 diffusely in the legs bilaterally including hip flexors, quadriceps, hamstrings, gastrocnemius, tibialis anterior, tibialis posterior, and Peroneii muscles. Toe extensors are normal and there is good bulk in the extensor digitorum brevis muscles bilaterally. The limbs have good tone without rigidity or spasticity. There is no atrophy noted in the muscles. Muscle bulk is normal, there is no tenderness to palpation, no myotonia to percussion, and no fasciculations seen. Sensory examination is intact to touch and pin throughout all 4 limbs diffusely. Reflexes are 1/4 in the biceps, triceps, brachioradialis, quadriceps, and Achilles tendons bilaterally. There is no clonus bilaterally. Toes are downgoing with plantar stimulation bilaterally. Peripheral pulses are present and of normal quality distally in all 4 limbs. There is no peripheral edema noted in the limbs. Results & Data Vital Signs (Past 12 Hours) Vital Signs Temp Pulse Pulse Resp BP Pulse Ox 04/09/19 07:53 36.5 C 94 H 18 134/81 94 04/09/19 04:25 36.8 C 83 18 124/72 94 04/09/19 00:00 86 04/08/19 23:00 36.7 C 80 18 120/76 94 Diagnostic Findings MRI OF THE BRAIN WITHOUT IV CONTRAST CLINICAL HISTORY: Expressive aphasia COMPARISON STUDY: CT of the brain dated 04/08/2019. TECHNIQUE: MRI of the brain was performed utilizing various T1 and T2-weighted sequences in the axial, sagittal, and coronal planes. IV contrast was not administered for this examination. FINDINGS: Brain parenchyma: There is a 1.5 cm focus of restricted diffusion identified in the left frontal cortex consistent with acute to subacute ischemia. No additional foci of restricted diffusion are identified. There is no hemorrhage or mass effect. There is age-related involutional change noting mild subcortical and periventricular microangiopathic disease. Chronic lacunar infarcts are seen in the left cerebellar hemisphere in the left caudate head. Silvestre-white matter differentiation is preserved. No extra-axial fluid collection is seen. The cerebellar tonsils are normal in configuration. Ventricles, sulci, and cisterns: Normal in configuration. Pituitary and sella: Unremarkable. Intracranial vasculature: Normal flow voids are maintained at the skull base. Orbits: The bony orbits are grossly intact. Orbital contents are normal in appearance noting bilateral ocular lens implants. Sinuses and mastoids: There is mild mucosal thickening ethmoid sinuses. The remaining paranasal sinuses are clear. The mastoid air cells are well pn eumatized. Calvarium: Unremarkable. Cervical cord: Partially visualized cervical spinal cord is normal in morphology and signal intensity. IMPRESSION: 1. There is a small acute to subacute infarct identified in the left frontal cortex. 2. No additional foci of acute ischemia are identified. 3. There is no hemorrhage or mass effect. ACT 112: Negative or not required by law. Electronically signed by: Bill Betancur M.D. 04/08/2019 4:47 PM PG Care Time/CCT Total # of Minutes Spent Total Time Spent with Patient: Total time spent is greater than 50% in coordination of care (as documented) at patient's floor/unit and/or counseling patient: Coding Level of Care Code 59431 Initial Inpt Care Lvl 3 Diagnoses Acute CVA (cerebrovascular accident) I63.9 Atrial fibrillation, rapid I48.91 Expressive aphasia R47.01 Hypertension I10 Dyslipidemia E78.5 Time Spent (min) 100 Comment Add [id number] the [id number]
--- NOTE | 2019-04-09 10:36 | Cardiology Progress Note ---
Date of Service April 09, 2019 Assessment & Plan (1) Atrial fibrillation, rapid: She continues in atrial fibrillation. It is very likely that she has permanent atrial fibrillation. Overall rate control seems reasonable on a diltiazem infusion. Think we will intensify her beta-valeria regimen in the hopes of using a single agent for rate control. No current symptoms. As mentioned previously resumption of Eliquis seems like the best option for her. Recurrent hematuria would require investigation by Urology who coincidentally, she is already scheduled to see as an outpatient. (2) Elevated troponin: Very mild elevations. Trajectory is not consistent with an acute coronary syndrome. She is known to have ischemic heart disease but I would not pursue this any further given her presentation. (3) CAD (coronary artery disease): Continue aggressive secondary prevention with aspirin, Eliquis, high-dose atorvastatin and beta blockade. (4) Shortness of breath: She appeared to have an element of pulmonary vascular congestion at the time of admission. However, she had a brisk diuresis and now seems to be feeling quite good. (5) Cardiomyopathy: Patient is noted to have severely reduced LV systolic function on her echocardiogram today. Unclear etiology. She certainly has a history of ischemic heart disease. It is possible that her symptoms that occurred 1 week ago represented an ischemic event. Perhaps the very minor elevations in her biomarkers and we are seeing today represent the tail end of an infarct. However, I would suspect that an infarct of that size would cause significant elevation in her biomarkers even at this remote date. Possible it is related to her atrial fibrillation or even vice versa. I believe she will require an invasive evaluation at some point. However, her current symptoms are not suggestive of a acute coronary syndrome I do not believe this is urgent. Will continue to increase her beta-blockade and switch her to metoprolol succinate. Continue her on her lisinopril and titrate as tolerated. (6) Ventricular tachycardia (paroxysmal): Patient did have a few beats of a wide complex tachycardia last evening. Unclear if this represents ventricular tachycardia or her atrial fibrillation with aberrancy. However, in the setting of a new cardiomyopathy this is concerning. We will continue to up titrate her beta-valeria. Even in the setting of her cardiomyopathy do not believe she requires any specific prophylaxis at this point. Do not believe she meets criteria for any invasive testing in this regard. Subjective This morning the patient claims to be feeling well. She has not had any additional difficulty with speech or eating. She has no recurrent symptoms of chest discomfort. No breathing complaints. Review of Systems Review of Systems: Per HPI Physical Exam Physical Exam: She is alert and oriented x3. Mood affect appear normal. She answered all questions appropriately. HEENT: Sclerae are anicteric. Pupils are equal and reactive to light and accommodation. Extraocular movements were intact. Neuro: Cranial nerves intact Lungs: Lungs are clear to auscultation bilaterally. There are no rales wheezes or rhonchi. She has normal respiratory effort without use of accessory muscles. There is normal pulmonary excursion. Cardiac: The rhythm was irregular. S1 and S2 were normal. There are no murmurs on examination. The PMI was not markedly displaced on palpation. Abdomen: The abdomen was soft and nontender. Extremities: Patient has bilateral radial pulses that are equal in intensity. There is no evidence cyanosis or clubbing. There was no evidence of significant peripheral edema bilaterally. Skin: There are no rashes noted on examination today. Results & Data Vital Signs (Past 12 Hours) Vital Signs Temp Pulse Pulse Resp BP Pulse Ox 04/09/19 07:53 36.5 C 94 H 18 134/81 94 04/09/19 04:25 36.8 C 83 18 124/72 94 04/09/19 00:00 86 04/08/19 23:00 36.7 C 80 18 120/76 94 Laboratory Results Abnormal Lab Results 04/08/19 04/08/19 04/08/19 10:53 10:55 10:55 WBC 7.55 RBC 4.90 Hgb 12.6 Hct 41.1 MCV 83.9 MCH 25.7 MCHC 30.7 L RDW Std Deviation 47.7 H RDW Coeff of Moe 15.6 H Plt Count 205 MPV 11.4 H Immature Gran % (Auto) 0.3 Neut % (Auto) 76.2 Lymph % (Auto) 12.7 [place] % (Auto) 8.7 Eos % (Auto) 2.1 Baso % (Auto) 0.0 Immature Gran # (Auto) 0.02 Neut # (Auto) 5.75 Lymph # (Auto) 0.96 L [place] # (Auto) 0.66 H Eos # (Auto) 0.16 Baso # (Auto) 0.00 PT INR APTT PTT Ratio Sodium Potassium Chloride Carbon Dioxide Anion Gap BUN Creatinine Est Cr Clr Drug Dosing Est GFR ( Amer) Est GFR (Non-Af Amer) BUN/Creatinine Ratio Glucose POC Glucose 149 H Estimat Average Glucose 134 Hemoglobin A1c 6.3 H Calcium Magnesium Total Bilirubin AST ALT Alkaline Phosphatase Troponin I NT-Pro-B Natriuret Pep Total Protein Albumin Globulin Albumin/Globulin Ratio Triglycerides Cholesterol LDL Cholesterol, Calc VLDL Cholesterol, Calc HDL Cholesterol Cholesterol/HDL Ratio TSH Urine Color Urine Appearance Urine pH Ur Specific [place] Urine Protein Urine Glucose (UA) Urine Ketones Urine Blood Urine Nitrite Urine Bilirubin Urine Urobilinogen Ur Leukocyte Esterase Stl C. diff Tox B Gene Influenza Type A Ag Influenza Type B Ag 04/08/19 04/08/19 04/08/19 10:58 10:58 10:58 WBC RBC Hgb Hct MCV MCH MCHC RDW Std Deviation RDW Coeff of Moe Plt Count MPV Immature Gran % (Auto) Neut % (Auto) Lymph % (Auto) [place] % (Auto) Eos % (Auto) Baso % (Auto) Immature Gran # (Auto) Neut # (Auto) Lymph # (Auto) [place] # (Auto) Eos # (Auto) Baso # (Auto) PT 10.7 INR 1.0 APTT 23.4 PTT Ratio 0.9 Sodium 143 Potassium 4.1 Chloride 111 H Carbon Dioxide 28 Anion Gap 5.0 BUN 15 Creatinine 1.27 H Est Cr Clr Drug Dosing 35.1 Est GFR ( Amer) 44.6 Est GFR (Non-Af Amer) 38.5 BUN/Creatinine Ratio 12.0 Glucose 159 H POC Glucose Estimat Average Glucose Hemoglobin A1c Calcium 8.4 L Magnesium 1.9 Total Bilirubin 0.6 AST 21 ALT 31 Alkaline Phosphatase 65 Troponin I 0.066 H* NT-Pro-B Natriuret Pep 83048 H Total Protein 6.6 Albumin 3.1 L Globulin 3.5 Albumin/Globulin Ratio 0.9 Triglycerides Cholesterol LDL Cholesterol, Calc VLDL Cholesterol, Calc HDL Cholesterol Cholesterol/HDL Ratio TSH 2.330 Urine Color Urine Appearance Urine pH Ur Specific [place] Urine Protein Urine Glucose (UA) Urine Ketones Urine Blood Urine Nitrite Urine Bilirubin Urine Urobilinogen Ur Leukocyte Esterase Stl C. diff Tox B Gene Influenza Type A Ag Influenza Type B Ag 04/08/19 04/08/19 04/08/19 11:10 13:00 14:53 WBC RBC Hgb Hct MCV MCH MCHC RDW Std Deviation RDW Coeff of Moe Plt Count MPV Immature Gran % (Auto) Neut % (Auto) Lymph % (Auto) [place] % (Auto) Eos % (Auto) Baso % (Auto) Immature Gran # (Auto) Neut # (Auto) Lymph # (Auto) [place] # (Auto) Eos # (Auto) Baso # (Auto) PT 10.7 INR 1.0 APTT 23.9 PTT Ratio 0.9 Sodium Potassium Chloride Carbon Dioxide Anion Gap BUN Creatinine Est Cr Clr Drug Dosing Est GFR ( Amer) Est GFR (Non-Af Amer) BUN/Creatinine Ratio Glucose POC Glucose Estimat Average Glucose Hemoglobin A1c Calcium Magnesium Total Bilirubin AST ALT Alkaline Phosphatase Troponin I NT-Pro-B Natriuret Pep Total Protein Albumin Globulin Albumin/Globulin Ratio Triglycerides Cholesterol LDL Cholesterol, Calc VLDL Cholesterol, Calc HDL Cholesterol Cholesterol/HDL Ratio TSH Urine Color Yellow Urine Appearance Clear Urine pH 6.0 Ur Specific [place] 1.012 Urine Protein Negative Urine Glucose (UA) Negative Urine Ketones Negative Urine Blood Negative Urine Nitrite Negative Urine Bilirubin Negative Urine Urobilinogen Negative Ur Leukocyte Esterase Negative Stl C. diff Tox B Gene Influenza Type A Ag Neg for Influ A Influenza Type B Ag Neg for Influ B 04/08/19 04/08/19 04/08/19 14:53 17:40 20:34 WBC RBC Hgb Hct MCV MCH MCHC RDW Std Deviation RDW Coeff of Moe Plt Count MPV Immature Gran % (Auto) Neut % (Auto) Lymph % (Auto) [place] % (Auto) Eos % (Auto) Baso % (Auto) Immature Gran # (Auto) Neut # (Auto) Lymph # (Auto) [place] # (Auto) Eos # (Auto) Baso # (Auto) PT INR APTT PTT Ratio Sodium Potassium Chloride Carbon Dioxide Anion Gap BUN Creatinine Est Cr Clr Drug Dosing Est GFR ( Amer) Est GFR (Non-Af Amer) BUN/Creatinine Ratio Glucose POC Glucose Estimat Average Glucose Hemoglobin A1c Calcium Magnesium Total Bilirubin AST ALT Alkaline Phosphatase Troponin I 0.061 H* 0.060 H* NT-Pro-B Natriuret Pep Total Protein Albumin Globulin Albumin/Globulin Ratio Triglycerides Cholesterol LDL Cholesterol, Calc VLDL Cholesterol, Calc HDL Cholesterol Cholesterol/HDL Ratio TSH Urine Color Urine Appearance Urine pH Ur Specific [place] Urine Protein Urine Glucose (UA) Urine Ketones Urine Blood Urine Nitrite Urine Bilirubin Urine Urobilinogen Ur Leukocyte Esterase Stl C. diff Tox B Gene Influenza Type A Ag Influenza Type B Ag 04/09/19 04/09/19 06:24 06:24 WBC 7.41 RBC 4.62 Hgb 11.8 L Hct 38.4 MCV 83.1 MCH 25.5 MCHC 30.7 L RDW Std Deviation 47.2 H RDW Coeff of Moe 15.6 H Plt Count 210 MPV 11.0 H Immature Gran % (Auto) 0.1 Neut % (Auto) 67.8 Lymph % (Auto) 17.8 [place] % (Auto) 11.5 Eos % (Auto) 2.7 Baso % (Auto) 0.1 Immature Gran # (Auto) 0.01 Neut # (Auto) 5.02 Lymph # (Auto) 1.32 [place] # (Auto) 0.85 H Eos # (Auto) 0.20 Baso # (Auto) 0.01 PT INR APTT PTT Ratio Sodium 142 Potassium 4.2 Chloride 107 Carbon Dioxide 30 Anion Gap 5.0 BUN 14 Creatinine 1.23 H Est Cr Clr Drug Dosing 34.2 Est GFR ( Amer) 46.3 Est GFR (Non-Af Amer) 40.0 BUN/Creatinine Ratio 11.7 Glucose 116 H POC Glucose Estimat Average Glucose Hemoglobin A1c Calcium 8.5 Magnesium Total Bilirubin 0.6 AST 17 ALT 29 Alkaline Phosphatase 59 Troponin I NT-Pro-B Natriuret Pep Total Protein 6.1 L Albumin 2.9 L Globulin 3.2 Albumin/Globulin Ratio 0.9 Triglycerides 87 Cholesterol 99 LDL Cholesterol, Calc 53 VLDL Cholesterol, Calc 17 HDL Cholesterol 29 Cholesterol/HDL Ratio 3 TSH Urine Color Urine Appearance Urine pH Ur Specific [place] Urine Protein Urine Glucose (UA) Urine Ketones Urine Blood Urine Nitrite Urine Bilirubin Urine Urobilinogen Ur Leukocyte Esterase Stl C. diff Tox B Gene Influenza Type A Ag Influenza Type B Ag Diagnostic Findings Echocardiogram obtained today reveals severely reduced LV systolic function without regional wall motion abnormalities. [id number] mitral regurgitation. Normal estimated pulmonary pressures. ECG Additional Comments: Telemetry demonstrates atrial fibrillation with controlled ventricular rate PG Care Time/CCT Total # of Minutes Spent Total Time Spent with Patient: Total time spent is greater than 50% in coordination of care (as documented) at patient's floor/unit and/or counseling patient: Coding Level of Care Code 92106 Subseq Hosp Care Lvl 3 Diagnoses Atrial fibrillation, rapid I48.91 Elevated troponin R79.89 CAD (coronary artery disease) I25.10 Shortness of breath R06.02 Cardiomyopathy I42.9 Ventricular tachycardia (paroxysmal) I47.2
[2019-04-09] MEDS: APIXABAN 2.5 MG TAB PO SCH ×2 (12:21→20:28)
--- NOTE | 2019-04-09 16:28 | Hospitalist Progress Note ---
Date of Service April 09, 2019 Assessment & Plan (1) Atrial fibrillation, rapid: afib with RVR HR much improved with Diltiazem drip Lopressor was increased from 12.5mg BID to 25mg QID by Dr. 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 Cervantes recommends resuming Eliquis in setting of afib continue aspirin no significant findings on carotid imaging echo shows reduced EF at 35%, new finding (3) Cardiomyopathy: new finding of low EF, 35% this is dramatic change from prior echo continue on metoprolol and lisinopril examines with trace edema in legs but this is chronic per patient does not appear to need daily Lasix will need close follow up with cardiology has a h/o CABG x 5 in 2006 (4) Elevated troponin: demand ischemia, no evidence of ACS no further work up planned (5) Labile hypertension: Continue clonidine 0.1 mg p.o. twice daily as needed, lisinopril 20 mg p.o. every morning, metoprolol tartrate increased to 25mg QID blood pressure much better increase in pressure initially could have been related to stroke (6) Dyslipidemia: continue atorvastatin 40 mg p.o. every morning not a candidate for high intensity statin due to her age, risk of intracranial bleeding (7) Hypothyroidism: Continue levothyroxine 75 MCG's p.o. every morning (8) Diarrhea: Patient has persistent diarrhea for 3 to 4 months. Consult GI (9) Hematuria: happened one time at home Eliquis and aspirin stopped as outpatient referral and appointment scheduled with urology need to resume Eliquis and aspirin in setting of acute ischemic stroke follow up with urology Subjective patient feeling better today, no neurological deficits, NIH stroke score [address] Cervantes, he recommends Eliquis for anticoagulation, no other recommendations discussed with Dr. Villalba, will stop Diltiazem IV, continue Lopressor 25mg q6, Eliquis for AC patient is breathing well, no chest pain eating well sitting up in chair with her family in the room, provided them with update labs show CBC is normal, BMP shows Cr 1.23, electrolytes stable echo shows that EF is reduced at 35%, this is a significant change discussed with patient and her family, she appears to be euvolemic at the time Review of Systems Review of Systems: All systems reviewed & are unremarkable except as noted in HPI & below Constitutional: + fatigue and + weakness; no fever and no sweats Respiratory: + dyspnea on exertion; no cough and no dyspnea Cardiovascular: + edema (trace in legs, this is normal for her); no chest pain Gastrointestinal: no abdominal pain, no nausea, no vomiting, no constipation and no diarrhea/loose stools Physical Exam Constitutional: WD/WN, vitals as above Eyes: PERRL, conjunctivae normal, anicteric sclerae ENMT: external ear and nose normal, oropharynx normal Neck: trachea midline, no thyromegaly Respiratory: normal respiratory effort, lungs clear to auscultation Cardiovascular: Rate/Rhythm: regular rate and + irregularly irregular Heart Sounds: normal S1 and normal S2; no murmur Extremities: normal capillary refill and + edema (trace in legs) Gastrointestinal (Abdomen): normal bowel sounds, soft, nontender, no hepatosplenomegaly Musculoskeletal: no cyanosis or clubbing, extremities motor strength 5/5 Skin: no rashes, warm and dry Neurologic: patellar DTR's 2+ bilat, sensation intact and PERRL, EOMI, accommodation nl, no face palsy, no dysarthria Psychiatric: A+Ox3, euthymic affect Lymphatic: no cervical or axillary lymphadenopathy Results & Data Vital Signs (Past 12 Hours) Vital Signs Temp Pulse Resp BP Pulse Ox 04/09/19 15:54 36.7 C 91 H 18 99/64 L 92 04/09/19 11:07 36.7 C 81 19 110/70 94 04/09/19 07:53 36.5 C 94 H 18 134/81 94 04/09/19 04:25 36.8 C 83 18 124/72 94 Laboratory Results Laboratory Results - last 24 hr 04/08/19 04/08/19 04/08/19 17:40 17:40 17:40 WBC RBC Hgb Hct MCV MCH MCHC RDW Std Deviation RDW Coeff of Moe Plt Count MPV Immature Gran % (Auto) Neut % (Auto) Lymph % (Auto) [place] % (Auto) Eos % (Auto) Baso % (Auto) Immature Gran # (Auto) Neut # (Auto) Lymph # (Auto) [place] # (Auto) Eos # (Auto) Baso # (Auto) Sodium Potassium Chloride Carbon Dioxide Anion Gap BUN Creatinine Est Cr Clr Drug Dosing Est GFR ( Amer) Est GFR (Non-Af Amer) BUN/Creatinine Ratio Glucose Estimat Average Glucose Hemoglobin A1c Calcium Total Bilirubin AST ALT Alkaline Phosphatase Troponin I Total Protein Albumin Globulin Albumin/Globulin Ratio Triglycerides Cholesterol LDL Cholesterol, Calc VLDL Cholesterol, Calc HDL Cholesterol Cholesterol/HDL Ratio Stool Source Pending Stl C. diff Tox B Gene Stool H. pylori Ag Pending Stl [place] Inter OfSt Pending Stl [place] Cult Final Pending Stool Comments Pending Giardia Antigen Bacterial ID Pending Micro Prelim Report Pending 04/08/19 04/08/19 04/09/19 17:40 20:34 06:24 WBC 7.41 RBC 4.62 Hgb 11.8 L Hct 38.4 MCV 83.1 MCH 25.5 MCHC 30.7 L RDW Std Deviation 47.2 H RDW Coeff of Moe 15.6 H Plt Count 210 MPV 11.0 H Immature Gran % (Auto) 0.1 Neut % (Auto) 67.8 Lymph % (Auto) 17.8 [place] % (Auto) 11.5 Eos % (Auto) 2.7 Baso % (Auto) 0.1 Immature Gran # (Auto) 0.01 Neut # (Auto) 5.02 Lymph # (Auto) 1.32 [place] # (Auto) 0.85 H Eos # (Auto) 0.20 Baso # (Auto) 0.01 Sodium Potassium Chloride Carbon Dioxide Anion Gap BUN Creatinine Est Cr Clr Drug Dosing Est GFR ( Amer) Est GFR (Non-Af Amer) BUN/Creatinine Ratio Glucose Estimat Average Glucose Hemoglobin A1c Calcium Total Bilirubin AST ALT Alkaline Phosphatase Troponin I 0.060 H* Total Protein Albumin Globulin Albumin/Globulin Ratio Triglycerides Cholesterol LDL Cholesterol, Calc VLDL Cholesterol, Calc HDL Cholesterol Cholesterol/HDL Ratio Stool Source Stl C. diff Tox B Gene Stool H. pylori Ag Stl [place] Inter OfSt Stl [place] Cult Final Stool Comments Giardia Antigen Pending Bacterial ID Micro Prelim Report 04/09/19 04/09/19 06:24 06:24 WBC RBC Hgb Hct MCV MCH MCHC RDW Std Deviation RDW Coeff of Moe Plt Count MPV Immature Gran % (Auto) Neut % (Auto) Lymph % (Auto) [place] % (Auto) Eos % (Auto) Baso % (Auto) Immature Gran # (Auto) Neut # (Auto) Lymph # (Auto) [place] # (Auto) Eos # (Auto) Baso # (Auto) Sodium 142 Potassium 4.2 Chloride 107 Carbon Dioxide 30 Anion Gap 5.0 BUN 14 Creatinine 1.23 H Est Cr Clr Drug Dosing 34.2 Est GFR ( Amer) 46.3 Est GFR (Non-Af Amer) 40.0 BUN/Creatinine Ratio 11.7 Glucose 116 H Estimat Average Glucose Pending Hemoglobin A1c Pending Calcium 8.5 Total Bilirubin 0.6 AST 17 ALT 29 Alkaline Phosphatase 59 Troponin I Total Protein 6.1 L Albumin 2.9 L Globulin 3.2 Albumin/Globulin Ratio 0.9 Triglycerides 87 Cholesterol 99 LDL Cholesterol, Calc 53 VLDL Cholesterol, Calc 17 HDL Cholesterol 29 Cholesterol/HDL Ratio 3 Stool Source Stl C. diff Tox B Gene Stool H. pylori Ag Stl [place] Inter OfSt Stl [place] Cult Final Stool Comments Giardia Antigen Bacterial ID Micro Prelim Report Medications Administered Current Inpatient Medications Acetaminophen (Tylenol) 650 mg PO Q4H PRN PRN Reason: Pain or Fever Stop: 05/08/19 14:35 Al Hydrox/Mg Hydrox/Simethicone (Maalox) 15 ml PO Q4H PRN PRN Reason: Dyspepsia Stop: 05/08/19 14:35 Apixaban (Eliquis) 2.5 mg PO BID [facility] Stop: 05/09/19 11:59 Last Admin: 04/09/19 12:21 Dose: 2.5 mg Documented by: Aspirin (Ecotrin Ectab) 81 mg PO DAILY [facility] Stop: 05/08/19 14:35 Last Admin: 04/09/19 08:29 Dose: 81 mg Documented by: Atorvastatin Calcium (Lipitor) 40 mg PO QAM [facility] Stop: 05/08/19 14:35 Last Admin: 04/09/19 08:32 Dose: 40 mg Documented by: Furosemide (Lasix) 20 mg PO QAM [facility] Stop: 05/10/19 08:59 Gabapentin (Neurontin) 300 mg PO DAILY [facility] Stop: 05/09/19 08:59 Last Admin: 04/09/19 08:32 Dose: 300 mg Documented by: Levothyroxine Sodium (Synthroid) 75 mcg PO DAILYBB [facility] Stop: 05/09/19 06:29 Last Admin: 04/09/19 05:46 Dose: 75 mcg Documented by: Lisinopril (Zestril) 20 mg PO QAM [facility] Stop: 05/09/19 08:59 Last Admin: 04/09/19 08:32 Dose: 20 mg Documented by: Magnesium Hydroxide (Milk Of Magnesia) 30 ml PO Q12H PRN PRN Reason: Constipation Stop: 05/08/19 14:35 Metoprolol Tartrate (Lopressor) 25 mg PO Q6 [facility] Stop: 05/09/19 11:59 Last Admin: 04/09/19 12:21 Dose: 25 mg Documented by: Miscellaneous Information (Pharmacist Discharge Med Rec Consult) 1 ea N/A UD PRN PRN Reason: Consult Stop: 05/08/19 14:35 Mupirocin (Bactroban 2%) 1 appln EXT DAILY [facility] Stop: 05/08/19 15:14 Last Admin: 04/09/19 08:29 Dose: 1 appln Documented by: Nitroglycerin (Nitrostat) 0.4 mg SL PRN PRN PRN Reason: Chest Pain Stop: 05/08/19 14:35 Ondansetron HCl (Zofran) 4 mg IV Q6H PRN PRN Reason: Nausea Stop: 05/08/19 14:35 Pantoprazole Sodium (Protonix) 40 mg PO DAILY [facility] Stop: 05/08/19 14:35 Last Admin: 04/09/19 08:32 Dose: 40 mg Documented by: Polyethylene Glycol (Miralax Powder Packet) 17 gm PO DAILY PRN PRN Reason: Constipation Stop: 05/08/19 14:35 Sertraline HCl (Zoloft) 25 mg PO HS [facility] Stop: 05/08/19 20:59 Last Admin: 04/08/19 20:20 Dose: 25 mg Documented by: PG Care Time/CCT Total # of Minutes Spent Total Time Spent with Patient: Total time spent is greater than 50% in coordination of care (as documented) at patient's floor/unit and/or counseling patient: Coding Level of Care Code 54183 Subseq Hosp Care Lvl 3 Diagnoses Atrial fibrillation, rapid I48.91 Transient ischemic attack G45.9 Cardiomyopathy I42.9 Elevated troponin R79.89 Labile hypertension R09.89 Dyslipidemia E78.5 Hypothyroidism E03.9 Diarrhea R19.7 Hematuria R31.9
[2019-04-09] MEDS: SERTRALINE HCL 50 MG TABLET PO SCH (20:28)
[2019-04-09] MEDS ORDERED: COUGH DROP (SUGAR FREE) LOZ 24 LOZ/1 BOX BUCCAL STA (22:31)
[2019-04-09] MEDS ORDERED: COUGH DROP (SUGAR FREE) LOZ 24 LOZ/1 BOX BUCCAL ONE (22:33)
[2019-04-10] MEDS: LEVOTHYROXINE SODIUM 75 MCG TABLET PO SCH (05:49)
[2019-04-10] MEDS: METOPROLOL TARTRATE 25 MG TAB PO SCH (05:49)
[2019-04-10 05:57] LABS: Estimated Average Glucose 131 mg/dl; Hemoglobin A1C 6.2 % (4.5-5.6)
[2019-04-10 07:27] LABS: Basophils # (auto) 0.01 K/uL (0-0.2); Basophils % (auto) 0.1 %; Eosinophils # (auto) 0.31 K/uL (0-0.5); Eosinophils % (auto) 4.1 %; Hematocrit (blood only) 38.4 % (37-47); Immature Granulocytes # (auto) 0.02 K/uL (0.00-0.02); Immature Granulocytes % (auto) 0.3 %; Lymphocytes # (auto) 1.29 K/uL (1.2-3.4); Lymphocytes % (auto) 17.2 %; Mean Corpuscular Hemoglobin 25.8 pg (25-34); Mean Corpuscular Hgb Conc 31.3 g/dL (32-36); Mean Corpuscular Volume 82.6 fL (80-100); Mean Platelet Volume 11.2 fL (7.4-10.4); Monocytes # (auto) 0.93 K/uL (0.11-0.59); Monocytes % (auto) 12.4 %; Neutrophils # (auto) 4.93 K/uL (1.4-6.5); Neutrophils % (auto) 65.9 %; Platelet Count 206 K/uL (130-400); RDW Coefficient of Variation 15.5 % (11.5-14.5); RDW Standard Deviation 46.4 fL (36.4-46.3); Red Blood Count 4.65 M/uL (4.2-5.4); White Blood Count 7.49 K/uL (4.8-10.8)
[2019-04-10 07:50] LABS: Albumin Level 2.9 gm/dl (3.4-5.0); Calcium 8.5 mg/dl (8.5-10.1); Creatinine Clr Calc Pharmacy 31.5 ml/min; Est GFR (African American) 42.1; Est GFR (Non-African American) 36.4; Potassium 3.9 mmol/L (3.5-5.1)
[2019-04-10 07:53] LABS: Albumin Globulin Ratio 0.9 (0.9-2); Bilirubin,Total 0.6 mg/dl (0.2-1); Globulin 3.3 gm/dl (2.5-4.0); Total Protein 6.2 gm/dl (6.4-8.2)
[2019-04-10] MEDS ORDERED: FUROSEMIDE 20 MG TAB PO SCH (09:00)
[2019-04-10] MEDS: lisinopriL 20 MG TAB PO SCH (09:20)
[2019-04-10] MEDS: APIXABAN 2.5 MG TAB PO SCH (09:20)
[2019-04-10] MEDS: PANTOprazole 40 MG TAB PO SCH (09:20)
[2019-04-10] MEDS: ATORVASTATIN 40 MG TAB PO SCH (09:20)
[2019-04-10] MEDS: MUPIROCIN 2% OINT 22 GM TUBE EXT SCH (09:21)
[2019-04-10] MEDS: ASPIRIN 81 MG ECTAB PO SCH (09:21)
[2019-04-10] MEDS: GABAPENTIN 300 MG CAP PO SCH ×2 (09:21→09:23)
--- NOTE | 2019-04-10 09:35 | Gastrointestinal Consultation ---
Date of Consultation April 10, 2019 Assessment & Plan (1) Diarrhea: Ms. Salina Ojeda is an 83 yr old female with acute/subacute CVA, also extensive cardiac hx of possibility of cardiac event a week or so ago (see card consult). She has chronic diarrhea for which she has been evaluated w/o specific cause. Plan: 1. Check Stool for C-diff. 2. KUB to r/o constipation with overflow diarrhea. 3. Begin Questran 1 gram BID. 4. F/u in OP GI clinic with Dr. Manriquez. 5. GI will sign off. Please call us if any new or significantly worsening GI symptoms. This pt was seen with Dr. Luiz Solares who developed and directed the above plan of care. Present on Admission?: Yes Supervising Physician Co-Signing Physician Notes I saw and evaluated the patient. She presented with a stroke and we are consulted for evaluation of chronic diarrhea. The patient has been seen as an outpatient by 1 of my partners and underwent an upper endoscopy and colonoscopy late last year. 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 Of note the patient notes that she has had symptoms for several years and was previously seen by now she follows with . Several months ago the patient was tried on a course of rifaximin without much improvement. Physical examination No obvious distress No scleral icterus No abdominal tenderness Impression: Patient with a history of chronic diarrhea. This symptom appears to be unchanged from her outpatient presentation in January with my partner. There are many potential causes for diarrhea to include bile acid diarrhea or perhaps a medication such as sertraline. Perhaps she would benefit from use of Questran 4 g 1 time daily. As her does not appear to be any acute issues we are certainly happy to provide guidance as needed at this point time. Recommendations Questran 4 g/day Outpatient follow-up with in 6 to 8 weeks Consider discontinuation of sertraline GI to sign off History of Present Illness Reason for Consultation: Diarrhea Requesting Physician: Dr. Drake Attending Physician: Eliza Jean-Baptiste MD History of Present Illness Ms. Ojeda is an 83 yr old female pt of Dr. Bharat Starr with a hx of CAD, A-fib, HTN, depression who presented to the [facility] 04/08 for CP. Cardiology consult mentions new cardiomyopathy and possibility of an event a week or so ago with plans for interventional investigation with timing to be determined. Kar MRI was consistent with an acute/subacute CVA from which she does not appear to have any residual functional neuro defects. GI is consulted for chronic diarrhea of several months duration. She reports that this diarrhea is similar to that present when she underwent EGD and colonoscopy two months ago by Dr. Manriquez. 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 She also had mild gastritis and duodenitis and colon polpys but no specific cause of diarrhea. She completed a course of rifaximin with temporarily, slightly improved her diarrhea. She denies any pain, GI bleeding, nausea/vomiting. Allergies Allergy/AdvReac Type Severity Reaction Status Date / Time codeine AdvReac Intermediate Vomiting Verified 04/08/19 12:03 Home Medications Home Medications Medication Instructions Recorded Confirmed Type levothyroxine 75 mcg PO QAM 04/01/18 04/08/19 History nitroglycerin [Nitrostat] 0.4 mg SUBLINGUAL DIRECTED PRN 04/01/18 04/08/19 History sertraline 25 mg PO HS 04/01/18 04/08/19 History simvastatin 40 mg PO QAM 04/01/18 04/08/19 History lisinopril 20 mg PO QAM #30 tab 04/02/18 04/08/19 Rx clonidine HCl 0.1 mg PO BID PRN 03/14/19 04/08/19 History metoprolol tartrate 12.5 mg PO BID 03/14/19 04/08/19 History gabapentin 300 mg PO DAILY 04/08/19 04/08/19 History mupirocin 1 applic TOPICAL UD 04/08/19 04/08/19 History Patient History Medical History Acute [place], inferior wall Anxiety Basal cell carcinoma of nose CAD (coronary artery disease) Depression GERD (gastroesophageal reflux disease) Hearing deficit Hyperlipidemia Hypertension Hypertensive emergency Hypothyroidism Myocardial Infarction x2----follows with Dr. Guzmán NSTEMI (non-ST elevated myocardial infarction) Surgical History History of arthroscopy of left knee History of arthroscopy of right knee History of bilateral cataract extraction History of bilateral tubal ligation History of cardiac cath x2--2006 @ [facility]--no stent/2013 @ [facility] x1 stent History of cholecystectomy History of colonoscopy History of dilatation and curettage multiple History of esophagogastroduodenoscopy (EGD) History of ethmoidectomy History of heart artery stent 2013 @ [facility] History of left breast biopsy benign History of repair of rectocele with cystocele History of tooth extraction History of total hysterectomy with bilateral salpingo-oophorectomy (BSO) History of total left knee replacement (TKR) History of total right knee replacement (TKR) History of wisdom tooth extraction S/P CABG x 5 (2006) 2006 @ [facility] Status post Mohs surgery for basal cell carcinoma Family History Son Family history of diabetes mellitus Son Family history of diabetes mellitus Other No family history of adverse response to anesthesia Social History Preferred Language: Upper Sorbian Communication Ability: Effective Collections And Archives Director Required: No Beliefs That Will Affect Care: None marital status: Current Living Situation: Spouse current occupational status: retired 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 No palpitations/irregular beats GI: See HPI : Denies pain on urination Skin: No jaundice, itching or new rashes Physical Exam Constitutional: WD/WN, vitals as above Eyes: PERRL, conjunctivae normal, anicteric sclerae ENMT: external ear and nose normal, oropharynx normal Neck: trachea midline, no thyromegaly Respiratory: normal respiratory effort, lungs clear to auscultation Cardiovascular: RRR, no murmur, no edema Gastrointestinal (Abdomen): normal bowel sounds, soft, nontender, no hepatosplenomegaly Musculoskeletal: no cyanosis or clubbing, extremities motor strength 5/5 Skin: no rashes, warm and dry Neurologic: PERRL, EOMI, accommodation nl, no face palsy, no dysarthria Psychiatric: A+Ox3, euthymic affect Lymphatic: no cervical or axillary lymphadenopathy Results & Data Vital Signs (Past 12 Hours) Vital Signs Temp Pulse Pulse Resp BP BP Pulse Ox 04/10/19 07:16 36.8 C 94 H 18 127/82 92 04/10/19 03:55 36.3 C L 98 H 16 127/81 95 04/09/19 23:18 36.5 C 101 H 19 118/80 92 Laboratory Results No leukocytosis No electrolyte abnormalities. BUN 19, Cr 1.33 (baseline 1.16).
--- NOTE | 2019-04-10 10:01 | XRay Report ---
[facility] CLINICAL HISTORY: diarrhea, r/o constipation with overflow diarrhea COMPARISON STUDY: CT of the abdomen and pelvis March 22, 2019. FINDINGS: Bowel gas pattern is normal. There is no significant stool within the rectum. [id number] ate amount stool within the colon is noted. IMPRESSION: 1. No evidence for a bowel obstruction. 2. No stool within the rectum. Mild to moderate stool within the colon which is within normal limits. ACT 112: Negative or not required by law. Electronically signed by: Antoni Mcgrath M.D. 04/10/2019 9:59 AM
[2019-04-10] MEDS ORDERED: METOPROLOL TARTRATE 50 MG TAB PO SCH (12:00)
--- NOTE | 2019-04-10 12:18 | Cardiology Progress Note ---
Date of Service April 10, 2019 Assessment & Plan (1) Atrial fibrillation, rapid: She remains in atrial fibrillation and her rate has improved but is still higher than our target. It is very likely that she has permanent atrial fibrillation. -- Diltiazem infusion was discontinued. -- Recommend increasing her Lopressor to 50 mg every 6 hours (Can convert to Metoprolol Succinate ER at the time of discharge. -- Continue Eliquis 2.5 mg b.i.d.. -- If she develops any recurrent hematuria would require investigation by Urology. She has already scheduled to see as an outpatient. (2) Elevated troponin: -- Trend is not consistent with an acute coronary syndrome. -- She has known ischemic heart disease but would not pursue this any further given her presentation. (3) CAD (coronary artery disease): -- Continue aggressive secondary prevention with aspirin, Eliquis, high-dose atorvastatin and beta blockade. -- No angina pectoris or anginal equivalent symptoms. (4) Shortness of breath: -- Now resolved following brisk diuresis. -- She appeared to have some pulmonary vascular congestion at the time of admission.' -- Likely secondary to decreased LV systolic function and rapid V-rate. (5) Cardiomyopathy: Patient has severely reduced LV systolic function on her Echocardiogram. Unclear etiology -- could be related to ischemic heart disease vs rapid atrial fibrillation or both. -- She may require an invasive evaluation at some point if EF doesnt improve with rate control or if concerning symptoms. -- Her current symptoms are not suggestive of an acute coronary syndrome I do not believe this is urgent. -- Will continue to increase her beta-blockade and switch her to metoprolol succinate. -- Continue Lisinopril and titrate as tolerated. (6) Ventricular tachycardia (paroxysmal): -- Patient did have a few beats of a wide complex tachycardia two evenings ago -- unclear if this represented ventricular tachycardia or her atrial fibrillation with aberrancy. It has not recurred. -- We will continue to up titrate her beta-valeria. -- Even in the setting of her cardiomyopathy do not believe she requires any specific prophylaxis at this point. Supervising Physician Co-Signing Physician Notes Ceferino Guzmán MD CARDIOLOGY ATTENDING ADDENDUM (Dr. Guzmán): Patient seen, interviewed, and examined. Agree with above assessment and recommendations by Kip Stan, PA-C. Metoprolol increased from 25 mg q.6 hours to 50 mg q.6 hours (higher dose initiated as of noon today), aim for target HR 80-100 bpm. When target heart rate achieved, consolidate to single daily dose of Toprol succinate. Subjective Mrs. Ojeda offers no complaints today. She remains in A-Fib with a V-rate in the upper 90's and low 100's at a state of rest. Her neurologic symptoms have completely resolved. She has been up and out of bed, has taken some walks. Feels tired with walking but denies any exertional chest pain, heaviness, tightness, pressure, or discomfort. She denies any shortness of breath or unusual dyspnea on exertion. She does not have any sensation that her heart is racing despite being in atrial fibrillation. She denies any palpitations, syncope, or near syncope. She has not had any orthopnea or PND. Patient has resumed Eliquis and is tolerating thus far without bleeding complications. Patient had her diltiazem drip discontinued, and she is currently on Lopressor 25 mg every 6 hours. we will increase this dosage today for better rate control and to have her on an adequate dose considering her decreased LV systolic function. Physical Exam Physical Exam: GENERAL: Patient in no acute distress. HEENT: Head is atraumatic, normocephalic. EOM's intact. Facies symmetric. No perioral cyanosis. NECK: No JVD. JVP is at the level of the clavicle sitting upright. Carotid upstrokes are + 2 bilaterally. No bruits are noted. CHEST/LUNGS: Clear to auscultation throughout all lung sepulveda. No wheezes, rales, or crackles. CVS: S1 and S2 are irregularly irregular at 100 bpm. No obvious murmurs, gallops, or rubs. No abdominal aortic or renal bruits. ABDOMINAL EXAM: Bowel sounds are present. No masses, organomegaly, or tenderness. EXTREMITIES: No clubbing or cyanosis. No pitting edema. Intact radial pulses bilaterally. NEUROLOGIC EXAM: Patient is awake, alert, and oriented. Pleasant and cooperative. Answers questions appropriately. Speech is clear. Normal movement in all 4 extremities. Gait pattern was not observed. TELEMETRY: -- Atrial fibrillation with V-rate of 99 bpm currently. Results & Data Vital Signs (Past 12 Hours) Vital Signs Temp Pulse Pulse Resp BP BP Pulse Ox 04/10/19 11:15 36.5 C 99 H 18 118/81 95 04/10/19 07:16 36.8 C 94 H 18 127/82 92 04/10/19 03:55 36.3 C L 98 H 16 127/81 95 Laboratory Results Laboratory Results - last 24 hr 04/09/19 04/10/19 04/10/19 06:24 06:52 06:52 WBC 7.49 RBC 4.65 Hgb 12.0 Hct 38.4 MCV 82.6 MCH 25.8 MCHC 31.3 L RDW Std Deviation 46.4 H RDW Coeff of Moe 15.5 H Plt Count 206 MPV 11.2 H Immature Gran % (Auto) 0.3 Neut % (Auto) 65.9 Lymph % (Auto) 17.2 [place] % (Auto) 12.4 Eos % (Auto) 4.1 Baso % (Auto) 0.1 Immature Gran # (Auto) 0.02 Neut # (Auto) 4.93 Lymph # (Auto) 1.29 [place] # (Auto) 0.93 H Eos # (Auto) 0.31 Baso # (Auto) 0.01 Sodium 140 Potassium 3.9 Chloride 105 Carbon Dioxide 30 Anion Gap 5.0 BUN 19 H Creatinine 1.33 H Est Cr Clr Drug Dosing 31.5 Est GFR ( Amer) 42.1 Est GFR (Non-Af Amer) 36.4 BUN/Creatinine Ratio 14.0 Glucose 115 H Estimat Average Glucose 131 Hemoglobin A1c 6.2 H Calcium 8.5 Total Bilirubin 0.6 AST 15 ALT 27 Alkaline Phosphatase 68 Total Protein 6.2 L Albumin 2.9 L Globulin 3.3 Albumin/Globulin Ratio 0.9 Medications Administered Active Medications Generic Name Dose Route Start Last Admin Trade Name Freq PRN Reason Stop Dose Admin Acetaminophen 650 mg 04/08/19 14:36 Tylenol PO 05/08/19 14:35 Q4H PRN Pain or Fever Al Hydrox/Mg Hydrox/Simethicone 15 ml 04/08/19 14:36 Maalox PO 05/08/19 14:35 Q4H PRN Dyspepsia Apixaban 2.5 mg 04/09/19 12:00 04/10/19 09:20 Eliquis PO 05/09/19 11:59 2.5 mg BID HEATHER Administration Aspirin 81 mg 01/25/20 14:36 04/10/19 09:21 Ecotrin Ectab PO 05/08/19 14:35 81 mg DAILY HEATHER Administration Atorvastatin Calcium 40 mg 04/08/19 14:36 04/10/19 09:20 Lipitor PO 05/08/19 14:35 40 mg QAM HEATHER Administration Cholestyramine Resin 4 gm 04/10/19 22:00 Questran PO 05/10/19 21:59 BID@1000,2200 HEATHER Furosemide 20 mg 04/10/19 09:00 04/10/19 09:20 Lasix PO 05/10/19 08:59 20 mg QAM HEATHER Administration Gabapentin 300 mg 04/09/19 09:00 04/10/19 09:23 Neurontin PO 05/09/19 08:59 Not Given DAILY HEATHER Levothyroxine Sodium 75 mcg 04/09/19 06:30 04/10/19 05:49 Synthroid PO 05/09/19 06:29 75 mcg DAILYBB HEATHER Administration Lisinopril 20 mg 04/09/19 09:00 04/10/19 09:20 Zestril PO 05/09/19 08:59 20 mg QAM HEATHER Administration Magnesium Hydroxide 30 ml 04/08/19 14:36 Milk Of Magnesia PO 05/08/19 14:35 Q12H PRN Constipation Metoprolol Tartrate 50 mg 04/10/19 12:00 Lopressor PO 05/10/19 11:59 Q6 HEATHER Miscellaneous Information 1 ea 04/08/19 14:36 Pharmacist Discharge Med Rec Consult N/A 05/08/19 14:35 UD PRN Consult Mupirocin 1 appln 04/08/19 15:15 04/10/19 09:21 Bactroban 2% EXT 05/08/19 15:14 Not Given DAILY [facility] Nitroglycerin 0.4 mg 04/08/19 14:36 Nitrostat SL 05/08/19 14:35 PRN PRN Chest Pain Ondansetron HCl 4 mg 04/08/19 14:36 Zofran IV 05/08/19 14:35 Q6H PRN Nausea Pantoprazole Sodium 40 mg 04/08/19 14:36 04/10/19 09:20 Protonix PO 05/08/19 14:35 40 mg DAILY HEATHER Administration Polyethylene Glycol 17 gm 04/08/19 14:36 Miralax Powder Packet PO 05/08/19 14:35 DAILY PRN Constipation Sertraline HCl 25 mg 04/08/19 21:00 04/09/19 20:28 Zoloft PO 05/08/19 20:59 25 mg HS HEATHER Administration PG Care Time/CCT Total # of Minutes Spent Total Time Spent with Patient: Total time spent is greater than 50% in coordination of care (as documented) at patient's floor/unit and/or counseling patient: Coding Level of Care Code 01120 Subseq Hosp Care Lvl 3 Diagnoses Atrial fibrillation, rapid I48.91 Elevated troponin R79.89 CAD (coronary artery disease) I25.10 Shortness of breath R06.02 Cardiomyopathy I42.9 Ventricular tachycardia (paroxysmal) I47.2
[2019-04-10 15:42] VITALS: PULSE 87; TEMP 97.9; O2SAT 94
[2019-04-10] MEDS ORDERED: STROKE PATIENT DISCHARGE STA (16:02)
--- NOTE | 2019-04-10 16:07 | Discharge Summary ---
Date of Service April 10, 2019 Admission HPI Per Admitting Provider The patient is a 83 years old female with past medical history of hypercholesterolemia, depression, hypertension, hypothyroidism, paroxysmal A. fib's who presents to the emergency room with a complaint of atypical chest pain, palpitations, maldigestion, and diarrhea. The chest pain started this morning and lasted for less than 5 minutes. It was located in her epigastric area and went tolerated left chest. Patient denies radiation to her neck or radiation to her left arm. Patient reports having diarrhea for 3 to 4 months. She reports that her bowels are either loose or very liquid and patient is not sure what is going on with it. Patient reports having Forde's esophagus. Patient was taken off of Eliquis because in the past she had GI bleed. Patient denies fever, chills,shortness of breath, frequency, urgency, syncope or near syncope. Reviewed sodium 143, potassium 4.1, chloride 111, anion gap 5, BUN 15, creatinine 1.27, GFR 38.5, glucose 159, magnesium 1.9, AST 21, ALT 31, alkaline phosphatase 65, troponin 0.0 66, total protein 6.6, albumin 3.1, TSH 2.33, WBC 7.55, hemoglobin 12.6, hematocrit 41.1, platelets 205, urine all negative, PT 10.7, INR 1, APTT 23.4, influenza A&B negative. CT scan: There is no hemorrhage mass affect or evidence of acute territorial ischemia by CT criteria. Chest x-ray is cardiomegaly with evidence of mild congestive failure. Trace pleural effusion. The decision was made to admit patient to PCU on telemetry for elevated troponin, mild congestive heart failure, abdominal discomfort and diarrhea. Discharge Data Allergies Allergy/AdvReac Type Severity Reaction Status Date / Time codeine AdvReac Intermediate Vomiting Verified 04/08/19 12:03 Consultations 04/08/19 11:54 ED Decision to Admit Stat 04/08/19 14:36 Consult Case Management - Discharge Planning Routine Consult Gastroenterology Routine Consult Neurology Routine 04/08/19 17:51 Consult Cardiology Routine 04/08/19 17:53 Consult Neurology Routine Ordered Studies 04/08/19 10:58 CT head/brain wo con Stat 04/08/19 14:36 MR brain wo con Routine US carotid doppler BI Routine Hospital Course (1) Atrial fibrillation, rapid: afib with RVR HR much improved with Diltiazem drip Lopressor was increased from 12.5mg BID to 25mg QID by Dr. 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 Cervantes recommends resuming Eliquis in setting of afib continue aspirin no significant findings on carotid imaging echo shows reduced EF at 35%, new finding (3) Cardiomyopathy: Acute systolic CHF new finding of low EF, 35% this is dramatic change from prior echo continue on metoprolol and lisinopril examines with trace edema in legs but this is chronic per patient does not appear to need daily Lasix will need close follow up with cardiology has a h/o CABG x 5 in 2006 (4) Elevated troponin: demand ischemia, no evidence of ACS no further work up planned (5) Labile hypertension: Continue clonidine 0.1 mg p.o. twice daily as needed, lisinopril 20 mg p.o. every morning, metoprolol tartrate increased to 25mg QID blood pressure much better increase in pressure initially could have been related to stroke (6) Dyslipidemia: continue atorvastatin 40 mg p.o. every morning not a candidate for high intensity statin due to her age, risk of intracranial bleeding (7) Hypothyroidism: Continue levothyroxine 75 MCG's p.o. every morning (8) Diarrhea: Patient has persistent diarrhea for 3 to 4 months. Consult GI (9) Hematuria: happened one time at home Eliquis and aspirin stopped as outpatient referral and appointment scheduled with urology need to resume Eliquis and aspirin in setting of acute ischemic stroke follow up with urology Discharge Plan Discharge Items Patient Disposition: Home - Self-Care Reason For Visit: ABD PAIN,RAPID AFIBS,ELAVATED TROP Discharge Diagnosis: Rapid atrial fibrillation, Elevated troponin, Acute ischemic stroke, Chronic systolic congestive heart failure Condition on Discharge: Good Activity: As commented below Lifting: Gradually increase as tolerated Bathing: No limitations Exercise/Sports: Gradually increase as tolerated Non-emergency contact: Primary Care Provider and Admissions Officer Call non-emergency contact if: you have any medication questions and your symptoms worsen Follow-up/Referrals: Vega Pierce PA-C [Physician Wooden Box Maker] - 04/26/19 3:30 pm (Please, follow up at [facility] Cardiology Office with Vega Pierce PA-C on WednesdayApril 26 at 3:30 pm. *The office is located in [address] of [facility], next to this hospital. If you need to change this appointment, call the office at [phone].) Duane Gudino DO [Physician] - 04/20/19 11:20 am (Please, follow up at [facility] Urology Office with Dr. Gudino on April 20 at 11:20 am. *The office is located at [address] in [place]. If you need to change this appointment, call the office at [phone].) Souleymane De Souza MD [Primary Care Provider] - 04/12/19 10:30 am (Please, follow up with Dr. Bharat Starr on WednesdayApril 12 at 10:30 am. *If you need to change this appointment, call the office at [phone].) Diet: Heart Healthy and Low Sodium (2gm) Fluids: 2000ml (8 cups) Addtl Attending Provider Instructions: You were admitted with difficulty with your speech and found to have a stroke. This could have been caused by your irregular heart rhythm, atrial fibrillation. You were restarted on your blood thinner, Eliquis, to prevent future strokes. You were also started on a baby aspirin and your cholesterol pill was changed to a better one called atorvastatin to prevent strokes. Your metoprolol was change to a long acting form and the dose was increased to better control your heart rate. You have congestive heart failure-the heart mu scle is weakened. You were started on a diuretic pill called furosemide for this and changed to Toprol XL as above. Please follow up with Cardiology for further evaluation and treatment of this condition. Please follow up within 1-2 weeks with your PCP and Cardiology. Risk Factors for Stroke: You can reduce your chances of stroke by working with your medical provider to adopt a healthy lifestyle. Some specific ways to lower your chance of stroke are: * If you are a smoker, now is the time to stop smoking cigarettes * If you are diabetic, improve the control of your blood sugars * Avoid excessive amounts of alcohol * Control high blood pressure * Lose weight if you are overweight * Be sure to lead an active lifestyle * Eat a healthy diet low in salt, cholesterol and fat You should know about other risk factors for stroke that you are unable to control. These include: * Age 55 years or older * Male gender * Certain racial groups: , or / * Family History of Stroke, Mini stroke or Heart Attack * Sickle Cell Disease Follow Up: It is important for you to keep your follow up appointments with your medical provider. Who to Call and When: Medical Emergencies: Call 911 immediately if you experience any of the following warning signs and symptoms of Stroke: * Sudden numbness or weakness of the face, arm or leg, especially on one side of the body * Sudden confusion, trouble speaking or understanding * Sudden trouble seeing in one or both eyes * Sudden trouble walking, dizziness, loss of balance or coordination * Sudden severe headache with no cause Do not delay calling 911 if you experience any warning signs or symptoms of a stroke. Delay in seeking medical attention may affect what treatments can be given to you. . Call your Primary Care doctor if any of the following symptoms or problems start or get worse: * Shortness of breath or difficulty breathing * Wake up at night short of breath * Chest pain * Cough * Swelling of your hands, feet, or legs * More fatigued or tired with your normal activity * Palpitations - sudden fast heart beats WEIGHT * Weigh yourself every morning after using the bathroom. * Use the same scale. * Wear the same amount of clothing. * Write your weight down on a chart. * Call your Primary Care doctor if you gain more than 2-3 pounds in 1-2 days. MEDICATIONS * Use this discharge instruction sheet for medication instructions. * Take your medications at the time your doctor ordered. * Do not skip a dose of your medicines. * If you miss a dose of medicine, take it as soon as possible, but DO NOT DOUBLE A DOSE. * Read your medicine information when you get home. * Know all of the side effects of your medicine. If in doubt, ask your pharmacist * Call your Primary Care doctor's office if you have any side effects. * Be sure all of your doctors know what medicine and herbs you take (including cold, flu, and herbal medicine). Take the following with you to your follow-up doctor appointments: * Weight Chart * Medication List * List of questions Do not drink excessive alcohol, beer or wine. Pending Studies at Discharge: No Stand-Alone Forms: Medications to Prevent Stroke, [facility] Medications and DC Order Prescriptions: New Eliquis 2.5 mg Tablet 2.5 mg PO BID Qty: 60 RF: 0 atorvastatin 40 mg Tablet 40 mg PO QAM Qty: 30 RF: 0 aspirin [Ecotrin Low Strength] 81 mg Tablet,Delayed Release (Dr/Ec) 81 mg PO DAILY Qty: 30 RF: 0 pantoprazole 40 mg Tablet,Delayed Release (Dr/Ec) 40 mg PO DAILY Qty: 30 RF: 0 furosemide 20 mg Tablet 20 mg PO QAM Qty: 30 RF: 0 Cholestyramine Light 4 gram Powder In Packet 4 g PO BID@1000,2200 Qty: 60 RF: 0 metoprolol succinate [Toprol XL] 100 mg tablet extended release 24 hr 100 mg PO BID Qty: 60 RF: 0 Continued levothyroxine 75 mcg tablet 75 mcg PO QAM RF: 0 nitroglycerin [Nitrostat] 0.4 mg Tablet, Sublingual 0.4 mg Sublingual DIRECTED PRN (Reason: Chest Pain) RF: 0 sertraline 25 mg tablet 25 mg PO HS RF: 0 lisinopril 20 mg Tablet 20 mg PO QAM Qty: 30 RF: 0 gabapentin 300 mg capsule 300 mg PO DAILY RF: 0 mupirocin 2 % ointment 1 applic TOPICAL UD RF: 0 clonidine HCl 0.1 mg tablet 0.1 mg PO BID PRN (Reason: Systolic Blood pressure >180) Qty: 0 RF: 0 Discontinued simvastatin 40 mg tablet 40 mg PO QAM RF: 0 metoprolol tartrate 25 mg tablet 12.5 mg PO BID RF: 0 Discharge Orders: Discharge Order (Routine); Ordered 04/10/19 Ordered By: Eliza Zavala/Other Patient Handouts: Atorvastatin Calcium Oral tablet, Pantoprazole Sodium Gastro-resistant tablet, Apixaban Oral tablet, Metoprolol Succinate Oral tablet extended-release, Furosemide Oral tablet, Aspirin Oral tablet, Cholestyramine Powder for Oral suspension, A1C Admission Data Admit Date/Time: 04/08/19 13:20 Attending Provider: Eliza Jean-Baptiste Admit Provider: Thai Drake Primary Care Provider: Souleymane De Souza Other Providers: Thai Drake ; Arnol Escalante ; Kendrick Cervantes III ; Keith Villalba Other Interventions: Discharge Summary Assessment (RN) Last Done: 04/10/19 17:55 DC Date/Time DO NOT enter until pt leaves facility: 04/10/19 19:09 Coding Diagnoses Atrial fibrillation, rapid I48.91 Transient ischemic attack G45.9 Cardiomyopathy I42.9 Elevated troponin R79.89 Labile hypertension R09.89 Dyslipidemia E78.5 Hypothyroidism E03.9 Diarrhea R19.7 Hematuria R31.9
--- NOTE | 2019-04-10 16:13 | Pharmacy Report ---
Pharmacist Stroke Counseling - Date of Service April 10, 2019 - Scope: Pharmacy has been consulted to provide medication discharge counseling for this patient admitted with transient ischemic attack as per the Pharmacist Discharge Counseling for Stroke Patients Protocol. - Medications on Discharge: Home Medications Medication Instructions Recorded Confirmed levothyroxine 75 mcg PO QAM 04/01/18 04/08/19 nitroglycerin [Nitrostat] 0.4 mg SUBLINGUAL DIRECTED PRN 04/01/18 04/08/19 sertraline 25 mg PO HS 04/01/18 04/08/19 simvastatin 40 mg PO QAM 04/01/18 04/08/19 clonidine HCl 0.1 mg PO BID PRN 03/14/19 04/08/19 metoprolol tartrate 12.5 mg PO BID 03/14/19 04/08/19 gabapentin 300 mg PO DAILY 04/08/19 04/08/19 mupirocin 1 applic TOPICAL UD 04/08/19 04/08/19 New Rx's Medication Instructions Recorded lisinopril 20 mg PO QAM #30 tab 04/02/18 apixaban [Eliquis] 2.5 mg PO BID #60 tab 04/10/19 aspirin [Ecotrin Low Strength] 81 mg PO DAILY #30 tab 04/10/19 atorvastatin 40 mg PO QAM #30 tab 04/10/19 cholestyramine-aspartame 4 g PO BID@1000,2200 #60 ea 04/10/19 [Cholestyramine Light] furosemide 20 mg PO QAM #30 tab 04/10/19 metoprolol succinate [Toprol XL] 100 mg PO BID #60 tab 04/10/19 pantoprazole 40 mg PO DAILY #30 tab 04/10/19 - Action: The above medications, specifically ones for stroke treatment/prophylaxis, have been reviewed in detail with the patient and/or patient energy conservation representative(s) prior to discharge. This includes indication, common adverse reactions, drug interactions, and medication administration. Medication counseling has been employed using the teach-back method to ensure understanding. - Outcome: The patient and/or patient energy conservation representative(s) have demonstrated understanding of the medications. Please note, they are aware that the pharmacist will call them within 72 hours post-discharge to confirm that the appropriate medications are being taken and answer any further medication related questions the patient might have at that time. Contact information Individual to be contacted: [place] Relationship to patient (if applicable): Self Phone number: [phone] Best time to call: after 9am Thank you for allowing pharmacy to be involved in the care of this patient. Please call [phone] or [phone] with any additional questions
[2019-04-10] MEDS ORDERED: METOPROLOL SUCC 50MG EXT REL TAB PO STA (17:33)
[2019-04-10 18:00] VITALS: BP 118/81
[2019-04-10] MEDS ORDERED: CHOLESTYRAMINE LIGHT 4 GM PKT PO SCH (22:00)
[2019-04-13 13:51] LABS: Comment DNR; Organism #1 DNR; Source STOOL
--- NOTE | 2019-04-13 15:18 | Pharmacy Report ---
Pharmacist Post D/C Phone Note - Phone Note: Date of phone call: April 13, 2019. The patient and/or patient site safety representative(s) were unable to be reached for a follow-up phone call within the 72 hour time frame. Discharge counseling pharmacist contact information has already been provided to the patient should questions arise. Thank you for allowing us to be involved in the care of this patient. - Home Medications: Home Medications Medication Instructions Recorded Confirmed levothyroxine 75 mcg PO QAM 04/01/18 04/08/19 nitroglycerin [Nitrostat] 0.4 mg SUBLINGUAL DIRECTED PRN 04/01/18 04/08/19 sertraline 25 mg PO HS 04/01/18 04/08/19 gabapentin 300 mg PO DAILY 04/08/19 04/08/19 mupirocin 1 applic TOPICAL UD 04/08/19 04/08/19 New Rx's Medication Instructions Recorded lisinopril 20 mg PO QAM #30 tab 04/02/18 apixaban [Eliquis] 2.5 mg PO BID #60 tab 04/10/19 aspirin [Ecotrin Low Strength] 81 mg PO DAILY #30 tab 04/10/19 atorvastatin 40 mg PO QAM #30 tab 04/10/19 cholestyramine-aspartame 4 g PO BID@1000,2200 #60 ea 04/10/19 [Cholestyramine Light] clonidine HCl 0.1 mg PO BID PRN #0 tab 04/10/19 furosemide 20 mg PO QAM #30 tab 04/10/19 metoprolol succinate [Toprol XL] 100 mg PO BID #60 tab 04/10/19 pantoprazole 40 mg PO DAILY #30 tab 04/10/19
== END 2019-04-10 19:09 | disposition home or self-care (01) | DRG 308 ==
LOC: ED 10:41 → 2S 13:20 → SUATTDRO 13:20 → 2S 13:47

== ENCOUNTER 2023-03-18 18:36 | Observation (INO) ==
--- NOTE | 2023-03-18 18:55 | Emergency Department Note ---
Impression & Plan Atypical chest pain, CAD (coronary artery disease), A-fib ED Provider Note NAME: SULEMA ARMENTA AGE: 87 SEX: F : 1935 ARRIVES VIA: Ambulance INFORMANT: Patient, ED PROVIDER(S): Chase Mccain MD CHIEF COMPLAINT: Chest pain MEDICAL DECISION MAKING: Patient presents due to concern for chest pain. IV was established blood work was obtained along with an EKG troponin and chest x-ray. Blood work shows a normal white counts with mild anemia hemoglobin 11.4 with a normal platelet count. The patient's kidney function with a creatinine 1.35. This is slightly improved but are around her baseline. Most recently creatinine 1.6 in January 2022. Sugar 121. Hypocalcemic at 8.1 was ordered 1 g of IV calcium to be given. LFTs unremarkable with initial negative troponin. EKG does not show any obvious acute ischemic changes. Given that the patient has had 3 episodes of chest pain that is similar to when she had her prior MIs and required stents as well as the fact that she is already high risk I did speak with the on-call hospitalist service Dr. Leo and the patient was admitted to the medicine service Discussion w/ other healthcare providers: Dr. Leo inpatient medicine service Prior /Outside records reviewed: I did review a heart failure visit from [facility]. The patient does have a known history of permanent A-fib cardiomyopathy 5 vessel CABG and CKD. Patient did have an echo that was ordered in addition to blood work at that time. Patient does have a history of chronic heart failure with reduced ejection fraction. I reviewed an echo report from November 06, 2022 which showed LV normal in size with global hypokinesis of the left ventricle and EF of 35 to 40%. Differential diagnosis: Cardiac ischemia, aortic dissection, pulmonary embolism, pneumothorax, pneumonia, pericarditis, myocarditis, GERD, cholecystitis, pancreatitis, musculoskeletal, as well as other pathologies were considered. Diagnostics, as interpreted by me: ECG: A-fib, ventricular rate of 80, wide QRS, right bundle branch block pattern, 2 inversions anteriorly. Q wave inferiorly. Cardiac monitoring: An order was placed for continuous cardiac monitoring. The monitor shows a rate of 85 with irregular irregular rhythm. Patient was placed on pulse oximetry Medical decision rules: Heart score Imaging studies: I informally interpreted the patient's chest x-ray does not show any obvious pneumonia or pneumothorax. Sternotomy wires noted. Formal report to follow. HPI: Patient presents due to concern for chest pain. The patient has had 3 bouts of chest pain that most recently began yesterday. The patient states that the pain was right-sided with radiation to the jaw and arm. The patient states that this began last evening she took several nitro but her symptoms did not shane for several hours. The patient had another bout today took another nitro lasted for a little while and then had a another episode. The patient did not present earlier she was hoping that it just resolved. Patient does have a prior history of VT stents and states that this does feel similar to prior. Patient states that she did have some nausea and some sweatiness. She describes it as the pain being achy. PAST MEDICAL HISTORY: See Below PAST SURGICAL HISTORY: See Below SOCIAL HISTORY: See Below HOME MEDICATIONS: See Below ALLERGIES: See Below VITALS: See Below PHYSICAL EXAMINATION: GENERAL: NAD, non-toxic. EYE EXAM: Normal conjunctiva. PERRL, no anisocoria and EOM's grossly intact w/o pain. OROPHARYNX: Moist mucus membranes, grossly normal dentition. NECK: Supple, no nuchal rigidity, no adenopathy, non-tender. No signs of meningismus. FROM of the neck with good chin to chest and neck extension. No stridor. LUNGS: Clear to auscultation. Normal chest wall mechanics. HEART: Irregularly irregular, no MRG. ABDOMEN: Abdomen soft, non-tender, no masses, no rebound or guarding. BACK: No CVA TTP. SKIN: No rashes and no bruising. UPPER EXTREMITIES: Upper extremities are grossly normal. LOWER EXTREMITIES: Grossly normal, no edema. NEURO EXAM: A&O x3, cranial nerves II-XII grossly intact, normal speech, moves all 4 extremities. Past Med/Surg History Medical History Epistaxis Atrial fibrillation with RVR (04/2019) Inferior myocardial infarction (2013) Ureteral stricture (04/2019) SUZETTE (acute kidney injury) (04/2019) Atrial fibrillation with RVR (03/2019) UTI (urinary tract infection) (04/24/19) Hx of basal cell carcinoma Hematuria (04/2019) Ventricular tachycardia (paroxysmal) (03/2019) Acute CVA (cerebrovascular accident) (03/2019) Rectocele Orthostatic hypotension (01/2019) Edema of both legs Dyslipidemia Cystocele, midline Chronic venous insufficiency Hearing deficit Anxiety Depression Hyperlipidemia Myocardial Infarction (2006) Hypertensive emergency (2018) Surgical History S/P right coronary artery (RCA) stent placement (2013) History of total hysterectomy with bilateral salpingo-oophorectomy (BSO) History of left breast biopsy benign History of bilateral tubal ligation History of dilatation and curettage multiple History of arthroscopy of left knee History of arthroscopy of right knee History of total left knee replacement (TKR) History of total right knee replacement (TKR) History of repair of rectocele with cystocele History of colonoscopy History of cholecystectomy History of esophagogastroduodenoscopy (EGD) Status post Mohs surgery for basal cell carcinoma History of tooth extraction History of wisdom tooth extraction History of ethmoidectomy History of bilateral cataract extraction History of cardiac cath x2--2006 @ [facility]--no stent/2013 @ [facility] x1 stent S/P CABG x 5 (2006) SARABIA to LAD, vein grafts to OM 2, RCA, and sequential to ramus and diagonal Family History Son Family history of diabetes mellitus Mother Hypertension Stroke Father Lung cancer Sister Breast cancer Other Heart disease No family history of adverse response to anesthesia No family history of bleeding disorder Denies family history of Ovarian cancer Social History Smoking Status: Never smoker Second Hand Exposure: Yes; Do You Dip or Chew Tobacco: No; Hx Alcohol Use: No Hx Substance Use: No Preferred Language: [place] Islander Communication Ability: Effective 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 Beliefs That Will Affect Care: None marital status: / Current Living Situation: Spouse Current Living Situation Comment: [facility] current occupational status: retired How many Children do You have: 4 Other Information That Helps Us Care for You: No other: 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 [place] Feels Safe at Home: Yes Safety Concerns: Feels Safe At This Time Assistive Devices: Cane and Glasses Allergies Allergies Allergy/AdvReac Type Severity Reaction Status Date / Time codeine AdvReac Intermediate Vomiting Verified 02/11/23 14:12 Home Meds Home Medications Medication Instructions Recorded Confirmed levothyroxine 75 mcg tablet 75 mcg PO QAM 04/01/18 03/18/23 pantoprazole 40 mg tablet,delayed 40 mg PO Q OTHER DAY 04/20/19 03/18/23 release aspirin 81 mg tablet,delayed 81 mg PO Q OTHER DAY 11/02/22 03/18/23 release (Ecotrin Low Strength) escitalopram oxalate 10 mg tablet 10 mg PO QAM 03/18/23 03/18/23 metoprolol succinate 100 mg 50 mg PO QAM 03/18/23 03/18/23 tablet,extended release 24 hr spironolactone 25 mg tablet 25 mg PO QAM 03/18/23 03/18/23 Previous Rx's Medication Instructions Recorded apixaban 2.5 mg tablet (Eliquis) 2.5 mg PO BID #60 tabs 04/10/19 atorvastatin 40 mg tablet 40 mg PO QAM #30 tabs 04/10/19 nitroglycerin 0.4 mg sublingual 0.4 mg sublingual ONCE PRN Chest 10/27/19 tablet (Nitrostat) Pain #30 tabs sacubitril 97 mg-valsartan 103 mg 0.5 tab PO BID #90 tabs 11/12/22 tablet (Entresto) Results & Data (ED) Vital Signs Vital Signs - 24 hr 03/18/23 18:52 03/18/23 18:58 03/18/23 19:04 Temperature 36.8 C Temperature Source Oral Pulse Rate 80 79 Pulse Rate [Apical] Respiratory Rate 18 Respiratory Depth Blood Pressure 146/86 H Blood Pressure [Right Arm] Blood Pressure Mean 106 Blood Pressure Mean [Right Arm] Blood Pressure Position [Right Arm] Pulse Oximetry 96 94 Oxygen Delivery Method Room Air Room Air Sepsis Recent Fever Within 48 Hours No Sepsis New/Unexplained Change in Mental Status No Sepsis Action Taken by Nursing No Action Required 03/18/23 20:17 Temperature Temperature Source Pulse Rate Pulse Rate [Apical] 78 Respiratory Rate 18 Respiratory Depth Normal Blood Pressure Blood Pressure [Right Arm] 165/85 H Blood Pressure Mean Blood Pressure Mean [Right Arm] 111 Blood Pressure Position [Right Arm] Semi-fowlers Pulse Oximetry 96 Oxygen Delivery Method Room Air Sepsis Recent Fever Within 48 Hours Sepsis New/Unexplained Change in Mental Status Sepsis Action Taken by Shelter Medications Current Medication List: was personally reviewed by me Laboratory Data Attestation: I reviewed the patient's lab results. 03/18/23 19:14 03/18/23 19:14 Lab Results 03/18/23 Range/Units 19:14 WBC 6.05 (4.8-10.8) K/ul RBC 4.48 (4.20-5.40) M/uL Hgb 11.4 L (12.0-16.0) g/dl Hct 37.9 (37.0-47.0) % MCV 84.6 (80.0-100.0) fL MCH 25.4 (25.0-34.0) pg MCHC 30.1 L (32.0-36.0) g/dL RDW Std Deviation 44.3 (36.4-46.3) fL RDW Coeff of Moe 14.5 (11.5-14.5) % Plt Count 155 (130-400) K/uL MPV 11.7 (9.4-12.4) fL Immature Gran % (Auto) 0.3 % Neut % (Auto) 64.6 % Lymph % (Auto) 12.2 % Patrick % (Auto) 21.5 % Eos % (Auto) 1.2 % Baso % (Auto) 0.2 % Neut # (Auto) 3.91 (1.40-6.50) K/uL Lymph # (Auto) 0.74 L (1.20-3.40) K/uL Patrick # (Auto) 1.30 H (0.11-0.59) K/uL Eos # (Auto) 0.07 (0.00-0.50) K/uL Baso # (Auto) 0.01 (0.00-0.20) K/uL Immature Gran # (Auto) 0.02 (0.01-0.20) K/uL PT 11.6 (9.0-12.0) Seconds INR 1.1 (0.9-1.1) APTT 29 (21-31) Seconds PTT Ratio 1.0 Sodium 138 (136-145) mmol/L Potassium 3.9 (3.5-5.1) mmol/L Chloride 105 (98-107) mmol/L Carbon Dioxide 26 (21-32) mmol/L Anion Gap 7 (3-11) BUN 22 (6-23) mg/dl Creatinine 1.35 H (0.6-1.2) mg/dl Est Cr Clr Drug Dosing 29.2 ml/min Est GFR ( Amer) 40.2 ml/min Est GFR (Non-Af Amer) 34.7 ml/min BUN/Creatinine Ratio 16.3 (10-20) Glucose 121 H (70-99(Fasting)) mg/dl Calcium 8.1 L (8.6-10.3) mg/dl Total Bilirubin 0.5 (0.2-1.0) mg/dl AST 14 (13-39) U/L ALT 10 (7-52) U/L Alkaline Phosphatase 80 (34-104) U/L Troponin I High Sens 12.9 (0-14) pg/ml Total Protein 6.1 (6.0-8.3) gm/dl Albumin 3.4 (3.4-5.0) gm/dl Globulin 2.7 (2.5-4.0) gm/dl Albumin/Globulin Ratio 1.3 (0.9-2) Lipase 3 L (11-82) U/L Administered Medications Discontinued Medications Calcium Gluconate () 1,000 mg in 60 mls @ 240 mls/hr IV NOW STA Stop: 03/18/23 20:33 Last Infusion: 03/18/23 21:29 Dose: Infused Documented By: Admin: 03/18/23 20:44 Dose: 240 mls/hr Documented By: JOSE Discharge Plan Visit Data Chief Complaint: Chest Pain ED Provider: Chase Mccain Discharge Problem: Atypical chest pain, CAD (coronary artery disease), A-fib Forms Stand Alone Forms: My [facility] [employer] Prescriptions Prescriptions: No Action nitroglycerin [Nitrostat] 0.4 mg tablet, sublingual 0.4 mg sublingual ONCE PRN (Reason: Chest Pain) Qty: 30 1RF Rx Instructions: PLACE TABLET UNDER THE TONGUE EVERY 5 MINUTES IF NEEDED FOR CHEST PAIN Entresto 97-103 mg tablet 0.5 tab PO BID Qty: 90 3RF aspirin [Ecotrin Low Strength] 81 mg tablet,delayed release (DR/EC) 81 mg PO Q OTHER DAY Rx Instructions: 81 mg PO on odd days; levothyroxine 75 mcg tablet 75 mcg PO QAM Eliquis 2.5 mg Tablet 2.5 mg PO BID Qty: 60 0RF atorvastatin 40 mg Tablet 40 mg PO QAM Qty: 30 0RF Rx Instructions: hold for 3 days 03/18/23,03/19/23,03/20/23 pantoprazole 40 mg tablet,delayed release (DR/EC) 40 mg PO Q OTHER DAY metoprolol succinate 100 mg tablet extended release 24 hr 50 mg PO QAM escitalopram oxalate 10 mg tablet 10 mg PO QAM spironolactone 25 mg tablet 25 mg PO QAM Referrals Referrals: Chase Montenegro MD [Primary Care Provider] - Discharge Problem: CAD (coronary artery disease) Qualifiers: Coronary Disease-Associated Artery/Lesion type: unspecified vessel or lesion type [place] vs. transplanted heart: [place] heart Associated angina: unspecified whether angina present Qualified Code(s): I25.10 - Atherosclerotic heart disease of [place] coronary artery without angina pectoris A-fib Qualifiers: Atrial fibrillation type: unspecified chronic Qualified Code(s): I48.20 - Chronic atrial fibrillation, unspecified
[2023-03-18 19:57] LABS: Basophils # (auto) 0.01 K/uL (0.00-0.20); Basophils % (auto) 0.2 %; Eosinophils # (auto) 0.07 K/uL (0.00-0.50); Eosinophils % (auto) 1.2 %; Hematocrit (blood only) 37.9 % (37.0-47.0); Hemoglobin 11.4 g/dl (12.0-16.0); Immature Granulocytes # (auto) 0.02 K/uL (0.01-0.20); Immature Granulocytes % (auto) 0.3 %; Lymphocytes # (auto) 0.74 K/uL (1.20-3.40); Lymphocytes % (auto) 12.2 %; Mean Corpuscular Hemoglobin 25.4 pg (25.0-34.0); Mean Corpuscular Hgb Conc 30.1 g/dL (32.0-36.0); Mean Corpuscular Volume 84.6 fL (80.0-100.0); Mean Platelet Volume 11.7 fL (9.4-12.4); Monocytes % (auto) 21.5 %; Neutrophils # (auto) 3.91 K/uL (1.40-6.50); Neutrophils % (auto) 64.6 %; Platelet Count 155 K/uL (130-400); RDW Coefficient of Variation 14.5 % (11.5-14.5); RDW Standard Deviation 44.3 fL (36.4-46.3); Red Blood Count 4.48 M/uL (4.20-5.40); White Blood Count 6.05 K/ul (4.8-10.8)
[2023-03-18 20:03] LABS: Albumin Globulin Ratio 1.3 (0.9-2); Albumin Level 3.4 gm/dl (3.4-5.0); BUN Creatinine Ratio 16.3 (10-20); Bilirubin,Total 0.5 mg/dl (0.2-1.0); Calcium 8.1 mg/dl (8.6-10.3); Creatinine Clr Calc Pharmacy 29.2 ml/min; Est GFR (African American) 40.2 ml/min; Est GFR (Non-African American) 34.7 ml/min; Globulin 2.7 gm/dl (2.5-4.0); Potassium 3.9 mmol/L (3.5-5.1); Total Protein 6.1 gm/dl (6.0-8.3)
[2023-03-18 20:08] LABS: Troponin I High Sensitivity 12.9 pg/ml (0-14)
[2023-03-18 20:16] LABS: INR 1.1 (0.9-1.1); Partial Thromboplastin Time 29 Seconds (21-31); Prothrombin Time 11.6 Seconds (9.0-12.0)
[2023-03-18] MEDS ORDERED: CALCIUM GLUCONATE 1,000 MG/60 ML BAG IV STA (20:19)
--- NOTE | 2023-03-18 20:58 | History & Physical Report ---
Date of Service March 18, 2023 Assessment & Plan (1) Chest pain: Plan: Midsternal/left-sided chest pain x 3 episodes that started the evening of 03/17; each episode lasted 1-2 hours Alleviated by taking nitroglycerin at home EKG revealed A-fib and RBBB at 80 bpm; QTc 505 Troponin WNL at 12.9; repeat ordered, pending Continuous telemetry monitoring Acetaminophen as needed for pain/fever Nitroglycerin as needed for acute chest pain A.m. CBC, BMP (2) COVID: Plan: At home test COVID+ on 03/17 COVID+ on arrival No leukocytosis; afebrile on arrival Isolation precautions in place Patient was started on Paxlovid on 03/18; she can continue to take while inpatient Will defer additional treatments at this time as patient is non-hypoxic; 96% SpO2 on RA Hold atorvastatin (3) GERD (gastroesophageal reflux disease): Plan: Continue pantoprazole (4) CAD (coronary artery disease): Plan: S/p CABG x 5 CABG in 2006 with SARABIA to LAD RCA stent placement in 2013 Continue aspirin every other day (5) Cardiomyopathy: Plan: Echo on 11/06/2022 revealed LVEF at 35-40%; moderate global hypokinesia of left ventricle; severely dilated left atrium No need to repeat at this time Continue spironolactone (6) Chronic kidney disease, stage 3: Plan: BUN 22, creatinine 1.35, and EGFR 34.7 Avoid nephrotoxic agents where possible Hold Entresto for now Okay to continue Paxlovid (7) Permanent atrial fibrillation: Plan: Chronic; stable Spoke with patient reports that she takes metoprolol succinate 50 mg daily (reconfirmed with cardio note from 02/11), despite it being listed as 100mg daily Continue metoprolol Continue Eliquis (8) Labile hypertension: Plan: Continue metoprolol (9) Hypothyroidism: Plan: Continue levothyroxine (10) Hypocalcemia: Plan: Calcium 8.1 on arrival; however, 8.6 when corrected for albumin Calcium gluconate given in ED Plan Disposition: Obs -admit to MedSurg telemetry DNR/DNI AHA diet VTE PPx: On Eliquis History of Present Illness Chief Complaint: Chest pain Primary Care Provider: Chase Montenegro MD [place] is a pleasant 87-year-old female with PMH of CAD, GERD, hypothyroidism, cardiomyopathy, permanent atrial fibrillation, CKD stage III, and labile hypertension. She presented via EMS from [place] for 3 episodes of midsternal chest pain starting last night on 03/17. She had left-sided chest pain that radiated into her right arm into her back; pain lasted 1-2 hours. She took 3 nitro tablets SL, which helped to alleviate the pain. She characterized the pain as a dull, achy pain that kept her up. The chest pain returned this morning; patient took 2 additional tablets. Pain then returned in the afternoon of 03/18 and she came to the emergency room. Patient has had prior HI in 2008 with stenting. She also reports that she had a bypass in 2006. It should be noted that patient tested positive for COVID with an at-home test on Friday 03/17 and started on a course of Paxlovid the morning of 03/18. She endorses productive cough and intermittent fevers since Wednesday 03/15. She does not use supplemental oxygen therapy at home. She brought her Paxlovid with her into the ED. Patient is hypertensive at 165/85 at time of admission; vitals otherwise stable; 96% SpO2 on RA. ED course: Calcium gluconate 1000 mg IV ROS: Patient endorses productive cough (yellow sputum production), intermittent fever, chills, CATALAN, chest pain, MASSEY, and diarrhea (which patient reports is ongoing, chronic). Patient denies night-sweats, dizziness, lightheadedness, hemoptysis, pleuritic CP, SOB, abdominal pain, N/V, burning with urination, dysuria, numbness/tingling in the arms or legs, or pain in legs. Allergies Allergy/AdvReac Type Severity Reaction Status Date / Time codeine AdvReac Intermediate Vomiting Verified 02/11/23 14:12 Home Medications Medication Instructions Recorded Confirmed Type levothyroxine 75 mcg tablet 75 mcg PO QAM 04/01/18 03/18/23 History apixaban 2.5 mg tablet (Eliquis) 2.5 mg PO BID #60 tabs 04/10/19 03/18/23 Rx atorvastatin 40 mg tablet 40 mg PO QAM #30 tabs 04/10/19 03/18/23 Rx pantoprazole 40 mg tablet,delayed 40 mg PO Q OTHER DAY 04/20/19 03/18/23 History release nitroglycerin 0.4 mg sublingual 0.4 mg sublingual ONCE PRN Chest 10/27/19 03/18/23 Rx tablet (Nitrostat) Pain #30 tabs aspirin 81 mg tablet,delayed 81 mg PO Q OTHER DAY 11/02/22 03/18/23 History release (Ecotrin Low Strength) sacubitril 97 mg-valsartan 103 mg 0.5 tab PO BID #90 tabs 11/12/22 03/18/23 Rx tablet (Entresto) escitalopram oxalate 10 mg tablet 10 mg PO QAM 03/18/23 03/18/23 History metoprolol succinate 100 mg 50 mg PO QAM 03/18/23 03/18/23 History tablet,extended release 24 hr spironolactone 25 mg tablet 25 mg PO QAM 03/18/23 03/18/23 History Past Med/Surg History Medical History Epistaxis Atrial fibrillation with RVR (04/2019) Inferior myocardial infarction (2013) Ureteral stricture (04/2019) SUZETTE (acute kidney injury) (04/2019) Atrial fibrillation with RVR (03/2019) UTI (urinary tract infection) (04/24/19) Hx of basal cell carcinoma Hematuria (04/2019) Ventricular tachycardia (paroxysmal) (03/2019) Acute CVA (cerebrovascular accident) (03/2019) Rectocele Orthostatic hypotension (01/2019) Edema of both legs Dyslipidemia Cystocele, midline Chronic venous insufficiency Hearing deficit Anxiety Depression Hyperlipidemia Myocardial Infarction (2006) Hypertensive emergency (2018) Surgical History S/P right coronary artery (RCA) stent placement (2013) History of total hysterectomy with bilateral salpingo-oophorectomy (BSO) History of left breast biopsy benign History of bilateral tubal ligation History of dilatation and curettage multiple History of arthroscopy of left knee History of arthroscopy of right knee History of total left knee replacement (TKR) History of total right knee replacement (TKR) History of repair of rectocele with cystocele History of colonoscopy History of cholecystectomy History of esophagogastroduodenoscopy (EGD) Status post Mohs surgery for basal cell carcinoma History of tooth extraction History of wisdom tooth extraction History of ethmoidectomy History of bilateral cataract extraction History of cardiac cath x2--2007 @ [facility] [place]/2013 @ [facility] x1 stent S/P CABG x 5 (2006) SARABIA to LAD, vein grafts to OM 2, RCA, and sequential to ramus and diagonal Family History Son Family history of diabetes mellitus Mother Hypertension Stroke Father Lung cancer Sister Breast cancer Other Heart disease No family history of adverse response to anesthesia No family history of bleeding disorder Denies family history of Ovarian cancer Social History Smoking Status: Never smoker Second Hand Exposure: Yes; Do You Dip or Chew Tobacco: No; Hx Alcohol Use: No Hx Substance Use: No Preferred Language: Chinese Communication Ability: Effective 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 Beliefs That Will Affect Care: None marital status: / Current Living Situation: Spouse Current Living Situation Comment: [facility] current occupational status: retired How many Children do You have: 4 Other Information That Helps Us Care for You: No other: 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 [place] Feels Safe at Home: Yes Safety Concerns: Feels Safe At This Time Assistive Devices: Cane and Glasses Review of Systems Review of Systems: See HPI above Physical Exam Physical Exam: General: no acute distress; pleasant affect; non-toxic appearing; well- nourished; frail; cooperative HEENT: normocephalic, atraumatic; no scleral icterus; vision and hearing grossly intact Neck: supple; no lymphadenopathy; trachea midline Skin: warm, dry without signs of tenting; no cyanosis; no rashes, bruising, lesions, or erythema noted CV: chest wall NTP; irregularly irregular rhythm at 78 bpm; S1/S2 normal; no murmurs/rubs/gallops; pulses intact and symmetric at radial, DP, and PT Lungs: no acute respiratory distress; symmetrical chest wall expansion; clear breath sounds across all lung sepulveda w/o adventitious sounds; no wheezing ABD: Soft, NTP; BS present; no rebound/guarding; no distention MSK: no tics or fasciculations; no edema noted in the LEs b/l, nonerythematous Neuro: A&Ox3; normal mood and affect; fluent speech; no focal deficits; sensation grossly intact in LEs B/L Results & Data Results & Data Vital Signs (Past 12 Hours) Vital Signs Temp Pulse Pulse Resp BP BP Pulse Ox 03/18/23 20:17 78 18 165/85 H 96 03/18/23 19:04 94 03/18/23 18:58 79 03/18/23 18:52 36.8 C 80 18 146/86 H 96 O2 Del Method 03/18/23 20:17 Room Air 03/18/23 19:04 Room Air 03/18/23 18:58 03/18/23 18:52 Room Air Laboratory Results Abnormal lab results 03/18/23 Range/Units 19:14 Hgb 11.4 L (12.0-16.0) g/dl MCHC 30.1 L (32.0-36.0) g/dL Lymph # (Auto) 0.74 L (1.20-3.40) K/uL [place] # (Auto) 1.30 H (0.11-0.59) K/uL Creatinine 1.35 H (0.6-1.2) mg/dl Glucose 121 H (70-99(Fasting)) mg/dl Calcium 8.1 L (8.6-10.3) mg/dl Lipase 3 L (11-82) U/L Code Status & VTE Plan Code Status DNR/DNI VTE Prophylaxis Plan VTE Prophylaxis will be ordered: Yes Supervising Physician Co-Signing Physician Notes Attending addendum: I have physically seen this patient, have supervised the KIARA's activities, and agree with the H&P unless as otherwise noted. Assessment and Plan: Midsternal/left-sided chest pain/CAD/hypertension/atrial fibrillation/cardiomyopathy- The patient will be admitted to telemetry for serial cardiac enzymes, serial EKG's, cardiac rhythm monitoring and a 2-D echocardiogram with Dopplers. Initial troponin 12.9, with follow-up 13.1 EKG without acute changes Continue aspirin, Eliquis, metoprolol succinate, nitroglycerin sublingual as needed, and spironolactone Hold Entresto Acute kidney injury superimposed on CKD- Creatinine 1.35, with base 1.24 Temporarily holding Entresto Repeat laboratories in a.m. PG Care Time/CCT Total # of Minutes Spent Total Time Spent with Patient: Total time spent is greater than 50% in coordination of care (as documented) at patient's floor/unit and/or counseling patient: Coding [place] [address] INT INP/OBS CARE 2/55MIN Patient Type Established Medical Decision Making Moderate Complexity Diagnoses Chest pain R07.9 COVID U07.1 GERD (gastroesophageal reflux disease) K21.9 CAD (coronary artery disease) I25.10 Cardiomyopathy I42.9 Chronic kidney disease, stage 3 N18.3 Permanent atrial fibrillation I48.21 Labile hypertension R09.89 Hypothyroidism E03.9 Hypocalcemia E83.51
[2023-03-18] MEDS ORDERED: ACETAMINOPHEN 325 MG TAB PO PRN (22:18)
[2023-03-18] MEDS ORDERED: NITROGLYCERIN SL 0.4 MG/TAB TAB SL PRN (22:18)
[2023-03-18] MEDS ORDERED: PAXLOVID 300 MG PO SCH (22:18)
[2023-03-18 22:53] LABS: Influenza A virus by PCR Negative (Neg); Influenza B virus by PCR Negative (Neg); RSV by PCR Negative (Neg)
[2023-03-18 22:58] LABS: SARS CoV2 RNA(COVID-19) Ceph POSITIVE (Negative)
[2023-03-18 23:17] LABS: Magnesium 1.5 mg/dl (1.7-2.4)
[2023-03-18 23:24] LABS: Troponin I High Sensitivity 13.1 pg/ml (0-14)
[2023-03-18] MEDS: NIRMATRELVIR/RITONAVIR 1 EA TAB PO SCH (23:35)
[2023-03-19 05:23] LABS: Basophils # (auto) 0.01 K/uL (0.00-0.20); Basophils % (auto) 0.2 %; Eosinophils # (auto) 0.06 K/uL (0.00-0.50); Eosinophils % (auto) 1.3 %; Hematocrit (blood only) 37.6 % (37.0-47.0); Hemoglobin 11.8 g/dl (12.0-16.0); Immature Granulocytes # (auto) 0.01 K/uL (0.01-0.20); Immature Granulocytes % (auto) 0.2 %; Lymphocytes # (auto) 0.61 K/uL (1.20-3.40); Lymphocytes % (auto) 13.5 %; Mean Corpuscular Hemoglobin 25.9 pg (25.0-34.0); Mean Corpuscular Hgb Conc 31.4 g/dL (32.0-36.0); Mean Corpuscular Volume 82.6 fL (80.0-100.0); Mean Platelet Volume 11.8 fL (9.4-12.4); Monocytes # (auto) 0.91 K/uL (0.11-0.59); Monocytes % (auto) 20.1 %; Neutrophils # (auto) 2.92 K/uL (1.40-6.50); Neutrophils % (auto) 64.7 %; Platelet Count 150 K/uL (130-400); RDW Coefficient of Variation 14.3 % (11.5-14.5); RDW Standard Deviation 42.9 fL (36.4-46.3); Red Blood Count 4.55 M/uL (4.20-5.40); White Blood Count 4.52 K/ul (4.8-10.8)
[2023-03-19 05:40] LABS: BUN Creatinine Ratio 17.5 (10-20); Calcium 8.1 mg/dl (8.6-10.3); Creatinine Clr Calc Pharmacy 32.8 ml/min; Est GFR (African American) 46.4 ml/min; Potassium 4.2 mmol/L (3.5-5.1)
[2023-03-19] MEDS: LEVOTHYROXINE SODIUM 75 MCG TABLET PO SCH (06:33)
--- NOTE | 2023-03-19 07:21 | XRay Report ---
XR chest 1V portable HISTORY: 87 years-old Female Chest pain, nonspecific acute chest pain COMPARISON: 01/05/2022 TECHNIQUE: AP view of the chest FINDINGS: Cardiac silhouette is enlarged. Median sternotomy. Pulmonary vascular congestion. No pneumothorax, pl eural effusion or overt pulmonary edema. Subsegmental atelectasis versus scarring of the left lung ba se. 1.9 cm nodular density in the lateral left midlung. IMPRESSION: 1. Cardiomegaly with pulmonary vascular congestion. 2. 1.9 cm nodular density in the lateral left midlung. Correlation with nonemergent follow-up chest C T recommended. ACT 112: Negative or not required by law. The above report was generated using voice recognition software. It may contain grammatical, syntax o r spelling errors. Electronically signed by: Yordan Singer M.D. 03/19/2023 7:20 AM
[2023-03-19] MEDS ORDERED: NIRMATRELVIR/RITONAVIR 1 EA TAB PO SCH (09:00)
[2023-03-19] MEDS: ASPIRIN 81 MG ECTAB PO SCH (09:49)
[2023-03-19] MEDS: APIXABAN 2.5 MG TAB PO SCH ×2 (09:49→22:13)
[2023-03-19] MEDS: SPIRONOLACTONE 25 MG TAB PO SCH (09:50)
[2023-03-19] MEDS: ESCITALOPRAM OXALATE 10 MG TAB PO SCH (09:50)
[2023-03-19] MEDS: METOPROLOL SUCC 50MG EXT REL TAB PO SCH (09:50)
[2023-03-19] MEDS: NIRMATRELVIR/RITONAVIR 1 EA TAB PO SCH ×2 (09:50→22:14)
[2023-03-19] MEDS: PANTOprazole 40 MG TAB PO SCH (09:51)
--- NOTE | 2023-03-19 11:32 | Electrocardiogram Report ---
Test Reason : Blood Pressure : / mmHG Vent. Rate : 080 BPM Atrial Rate : 000 BPM P-R Int : 000 ms QRS Dur : 160 ms QT Int : 438 ms P-R-T Axes : 000 -83 014 degrees QTc Int : 505 ms Atrial fibrillation Left axis deviation Right bundle branch block Abnormal ECG When compared with ECG of 15-JAN-2022 12:18, T wave inversion more evident in Anterior leads Confirmed by Gregg Tucker ([id number]) on 03/19/2023 11:32:40 AM Referred By: REFERRED SELF Confirmed By:Gregg Tucker
--- NOTE | 2023-03-19 12:05 | Hospitalist Progress Note ---
Date of Service March 19, 2023 Assessment & Plan (1) COVID: Plan: At home test COVID+ on 03/17 COVID+ on arrival No leukocytosis; afebrile on arrival Isolation precautions in place Patient was started on Paxlovid on 03/18; she can continue to take while inpatient Will defer additional treatments at this time as patient is non-hypoxic; 96% SpO2 on RA Hold atorvastatin No acute complaints (2) Chest pain: Plan: Midsternal/left-sided chest pain x 3 episodes that started the evening of 03/17; each episode lasted 1-2 hours Alleviated by taking nitroglycerin at home Patient reports that chest pain is currently relieved. EKG revealed A-fib and RBBB at 80 bpm; QTc 505. Repeat EKG this afternoon unchanged. Troponin WNL at 12.9; repeat ordered and at 13.1 Continuous telemetry monitoring Acetaminophen as needed for pain/fever Nitroglycerin as needed for acute chest pain A.m. CBC, BMP (3) GERD (gastroesophageal reflux disease): Plan: Continue pantoprazole No complaints of reflux (4) CAD (coronary artery disease): Plan: S/p CABG x 5 CABG in 2006 with SARABIA to LAD RCA stent placement in 2013 Continue aspirin every other day Magnesiumn is 1.5. Will order Magnesium sulfate 2gms IV and check repeat labs in the morning (5) Cardiomyopathy: Plan: Echo on 11/06/2022 revealed LVEF at 35-40%; moderate global hypokinesia of left ventricle; severely dilated left atrium No need to repeat at this time Continue spironolactone (6) Chronic kidney disease, stage 3: Plan: BUN 22, creatinine 1.35, and EGFR 34.7 Avoid nephrotoxic agents where possible Hold Entresto for now Okay to continue Paxlovid Continue to trend renal function (7) Permanent atrial fibrillation: Plan: Chronic; stable Spoke with patient reports that she takes metoprolol succinate 50 mg daily (reconfirmed with cardio note from 02/11), despite it being listed as 100mg daily Continue metoprolol Continue Eliquis (8) Labile hypertension: Plan: Continue metoprolol (9) Hypothyroidism: Plan: Continue levothyroxine (10) Hypocalcemia: Plan: Calcium 8.1 on arrival; however, 8.6 when corrected for albumin Calcium gluconate given in ED No further repletion needed at this time Plan Disposition: Obs -admit to [facility] telemetry DNR/DNI AHA diet VTE PPx: On Eliquis Patient lives in the [place]. Anticipate discharge home Admission and Anticipated Discharge Date Admission Date: March 18, 2023 Supervising Physician Co-Signing Physician Notes Attending Attestation - Chart reviewed, care plan d/w MEENU Ramírez. I agree w/ the hooper components of his documentation. Needs PT/OT evals to ensure safe d/c ultimately back to [facility]. Devyn Hunter MD Subjective Attending: Dr. Hunter This is a 87-year-old female who was admitted last evening at 855 for chest pain. Initial troponin was within normal limits at 12.9. EKG with A-fib and right bundle branch block with a QTc of 505 ms. No repeat EKG. Patient is anticoagulated with apixaban (Eliquis) at 2.5 mg p.o. twice daily. Patient is positive for SARSCOV2 and is being treated empirically with remdesivir but no steroids. Chest x-ray with cardiomegaly and pulmonary vascular congestion. Multiple episodes of chest pain at home. At the time of my examination, she had very mild chest pain on the left. Troponin on admission was normal at 12.9. Follow-up troponin of 13.1 Magnesium was found to be 1.5. This is currently being repleted Patient has not been out of bed. She denies any lightheadedness or dizziness. She is in atrial fibrillation. Review of chart states that this may be permanent. Patient states that his paroxysmal. Home medications include Toprol-XL 50 mg daily and Eliquis 2.5 mg p.o. twice daily No physical or occupational therapy performed today Review of Systems 2 Review of Systems: A total of 10 systems was reviewed and is negative other than as listed in the HPI Physical Exam 2 Physical Exam: GENERAL : No acute distress EYES: No icterus, gaze conjugate NOSE: No evidence of epistaxis MOUTH: No lesions or candidiasis NECK: Supple LUNGS: CTA B/L, no wheezes, rales or rhonchi HEART: Regular, rate controlled ABDOMEN: Soft, NT, ND, BS Present EXTREMITIES: No LE edema, pedal pulses intact NEURO: A&OX3 EYES: Pupils round equal and react to light, extraocular movements full, no injection. Thank you Results & Data Results & Data Vital Signs (Past 12 Hours) Vital Signs Temp Pulse Pulse Resp BP Pulse Ox O2 Del Method 03/19/23 07:43 84 03/19/23 06:33 36.5 C 83 20 123/65 96 Room Air 03/19/23 03:17 36.8 C 86 20 173/85 H 97 Room Air 03/19/23 03:10 Room Air Laboratory Results Abnormal lab results 03/18/23 03/18/23 03/18/23 Range/Units 19:14 21:58 22:41 WBC (4.8-10.8) K/ul Hgb 11.4 L (12.0-16.0) g/dl MCHC 30.1 L (32.0-36.0) g/dL Lymph # (Auto) 0.74 L (1.20-3.40) K/uL Cole # (Auto) 1.30 H (0.11-0.59) K/uL Creatinine 1.35 H (0.6-1.2) mg/dl Glucose 121 H (70-99(Fasting)) mg/dl Calcium 8.1 L (8.6-10.3) mg/dl Magnesium 1.5 L (1.7-2.4) mg/dl Lipase 3 L (11-82) U/L SARS-CoV-2 (PCR) POSITIVE A* (Negative) 03/19/23 Range/Units 04:55 WBC 4.52 L (4.8-10.8) K/ul Hgb 11.8 L (12.0-16.0) g/dl MCHC 31.4 L (32.0-36.0) g/dL Lymph # (Auto) 0.61 L (1.20-3.40) K/uL Cole # (Auto) 0.91 H (0.11-0.59) K/uL Creatinine (0.6-1.2) mg/dl Glucose (70-99(Fasting)) mg/dl Calcium 8.1 L (8.6-10.3) mg/dl Magnesium (1.7-2.4) mg/dl Lipase (11-82) U/L SARS-CoV-2 (PCR) (Negative) 03/19/23 04:55 03/19/23 04:55 Diagnostic Findings Chest X-Ray 03/18/23 19:01 XR chest 1V portable HISTORY: 87 years-old Female Chest pain, nonspecific acute chest pain COMPARISON: 01/05/2022 TECHNIQUE: AP view of the chest FINDINGS: Cardiac silhouette is enlarged. Median sternotomy. Pulmonary vascular congestion. No pneumothorax, pleural effusion or overt pulmonary edema. Subsegmental atelectasis versus scarring of the left lung base. 1.9 cm nodular density in the lateral left midlung. IMPRESSION: 1. Cardiomegaly with pulmonary vascular congestion. 2. 1.9 cm nodular density in the lateral left midlung. Correlation with nonemergent follow-up chest CT recommended. ACT 112: Negative or not required by law. The above report was generated using voice recognition software. It may contain grammatical, syntax or spelling errors. Electronically signed by: Yordan Singer M.D. 03/19/2023 7:20 AM PG Care Time/CCT Total # of Minutes Spent Total Time Spent with Patient: Total time spent is greater than 50% in coordination of care (as documented) at patient's floor/unit and/or counseling patient: Coding Level of Care Code 02567 SUB INP/OBS CARE 2/35MIN Diagnoses COVID U07.1 Chest pain R07.9 GERD (gastroesophageal reflux disease) K21.9 CAD (coronary artery disease) I25.10 Associated angina: unspecified whether angina present Coronary Disease-Associated Artery/Lesion type: unspecified vessel or lesion type [place] vs. transplanted heart: [place] heart Cardiomyopathy I42.9 Chronic kidney disease, stage 3 N18.3 Permanent atrial fibrillation I48.21 Labile hypertension R09.89 Hypothyroidism E03.9 Hypocalcemia E83.51 Time Spent (min) 30 (4) CAD (coronary artery disease) Associated angina: unspecified whether angina present Coronary Disease- Associated Artery/Lesion type: unspecified vessel or lesion type [place] vs. transplanted heart: [place] heart Qualified Code(s): I25.10 - Atherosclerotic heart disease of [place] coronary artery without angina pectoris
--- OUTSIDE RECORDS SUMMARY | 2023-03-19 12:25 | External Medical Summary | Summary of Care ---
Author Name Unknown Organization [facility] Address [address] [facility] [place] [address] Phone [phone] Care Team Providers Care Prison Guard Supervisor Name Role Phone JulyChase MD Primary Care Provider [phone] Reason for Visit * Reason Onset Date Comments Medication Question 03/16/2023 Encounter Details Date Type Department Care Team (Late st Contact Info) Description 03/16/[address] [facility] [address] [place] [address] JulyChase MD [address] [place] [address] Medication Question Allergies Active Allergy Reactions Criticality Noted Date Comments Codeine Nausea/vomiting 05/20/2016 documented as of this encounter (statuses as of 03/16/2023) Medications Medication Sig Dispensed Refills Start Date End Date Status Aspirin 81 MG Tablet Take 1 Tablet by mouth in the morning. Pt taking this every other day. 0 Active Entresto 24-26 MG Oral Tablet (sacubitril-valsarta n 24-26 mg per tab) Take 1 Tablet by mouth in the morning and 1 Tablet before bedtime. 0 Active Nitroglycerin 0.4 MG Sublingual Tablet Sublingual (Nitrostat)Indicatio ns:Coronary artery disease due to calcified coronary lesion,Chronic atrial fibrillation (HCC) Place under the tongue 1 Tablet every 5 minutes as needed for Pain, Chest. 25 Tablet 0 08/06/2021 Active Furosemide 20 MG Oral Tablet (Lasix)Indications:C hronic congestive heart failure, unspecified heart failure type (HCC) Take by mouth 1 Tablet every other day . Do not start before January 04, 2022. 90 Tablet 1 01/04/2022 Active Additional Information Patient not taking.Reported on 09/04/2022 Metoprolol Succinate ER 50 MG Oral Tablet Extended Release 24 Hour (toPROL XL)Indications:[place]on [place] artery disease due to calcified coronary lesion,Chronic atrial fibrillation (HCC) Take 1 Tablet (50 mg) by mouth in the morning. 90 Tablet 1 01/26/2022 Active Cetirizine HCl 10 MG Oral Tablet (ZyrTEC) Take 1 Tablet by mouth in the morning. As needed. 0 Active Amoxicillin 500 MG Oral Capsule (Amoxil)Indications: Indication present for endocarditis prophylaxis Take 4 Capsules by mouth once as needed (Prior to dental procedure for IE prophylaxis) for up to 1 dose. 30 Capsule 0 05/27/2022 Active Vitamin D3 50 MCG (2000 UT) Oral Capsule Take 1 Capsule by mouth in the morning. 0 Active Pantoprazole Sodium 40 MG Oral Tablet Delayed Release (Protonix) TAKE 1 TABLET BY MOUTH AT BEDTIME 90 Tablet 1 11/27/2022 Active Levothyroxine Sodium 75 MCG Oral Tablet (Levoxyl)Indications :Acquired hypothyroidism TAKE 1 TABLET BY MOUTH DAILY FIRST THING IN THE MORNING 90 Tablet 1 11/27/2022 Active Spironolactone 25 MG Oral Tablet (Aldactone)Indicatio ns:Chronic systolic congestive heart failure (HCC),Hx of CABG TAKE ONE-HALF TABLET BY MOUTH EVERY OTHER DAY 23 Tablet 2 12/01/2022 Active Ondansetron 4 MG Oral Tablet Disintegrating (Zofran)Indications: Nausea Place 1 Tablet on tongue every 8 hours as needed for Nausea or Vomiting. dissolve on tongue. 20 Tablet 1 12/01/2022 Active Eliquis 2.5 MG Oral Tablet (Apixaban) TAKE 1 TABLET BY MOUTH TWICE DAILY 180 Tablet 1 02/12/2023 Active Escitalopram Oxalate 10 MG Oral Tablet (Lexapro)Indications :Insomnia, unspecified type TAKE 1 TABLET BY MOUTH IN THE MORNING 90 Tablet 1 02/12/2023 Active Atorvastatin Calcium 40 MG Oral Tablet (Lipitor) TAKE 1 TABLET BY MOUTH DAILY 90 Tablet 1 02/12/2023 Active documented as of this encounter (statuses as of 03/16/2023) Active Problems Problem Noted Date Diagnosed Date Chronic kidney disease, stage 3b 07/20/2022 Overview: Per CKD protocol Chronic systolic congestive heart failure 2022 Encounter for long-term (current) use of medicat ions 08/06/2021 Chronic congestive heart failure 04/30/2021 Hx of CABG 04/30/2021 Overview: 2006 Coronary artery disease due to calcified coronar y lesion 04/30/2021 Overview: Stent placed 2020 Acquired hypothyroidism 04/30/2021 H/O TIA (transient ischemic attack) and stroke 0 04/30/2021 H/O nonmelanoma skin cancer 04/30/2021 Chronic atrial fibrillation 04/30/2021 Irritable bowel syndrome with diarrhea 9 Forde's esophagus without dysplasia 02/07/2019 Chronic diarrhea 01/05/2019 Bloating 01/05/2019 Gastroesophageal reflux disease 07/25/2018 documented as of this encounter (statuses as of 03/16/2023) Resolved Problems Problem Noted Date Diagnosed Date Resolved Date Chronic kidney disease, stage 3a 01/26/2022 07/22/2022 Overview: Per CKD protocol Post-menopause 08/06/2021 11/24/2021 documented as of this encounter (statuses as of 03/16/2023) Immunizations Name Administration Dates Next Due COVID-19 mRNA, LNP-s, No Pre serve, 2-Dose Series (Moderna) 07/11/2020,06/13/2020 COVID-19, mRNA, LNP-s, PF, B ooster, 100mcg/0.5mg (Moderna) 01/21/2021 Season Influenza, Quad, PF, Adjuvanted, 65+ Yrs, IM (FLUAD) 11/27/2020 Seasonal Influenza, PF, 6 M & above, IM , (FluLaval or Fluzone) 01/14/2013 Seasonal Influenza, Quadrivalent Hd (Fluzone Hd) 01/15/2023,01/01/2022 documented as of this encounter Social History Tobacco Use Types Packs/Day Years Used Date Smoking Tobacco: Never Smokeless Tobacco: Never Alcohol Use Standard Drinks/Week Comments No 0 (1 standard drink = 0.6 oz pur e alcohol) AUDIT-C Answer Date Recorded Frequency of Alcohol Consumption Never 07/21/2018 Average Number of Drinks Not on file 019 Frequency of Binge Drinking Not on file 11/2018 PHQ-2 Answer Date Recorded PHQ Adult Total Score 0 01/15/2023 Hunger Vital Sign Answer Date Recorded Within the past 12 months, y ou worried that your food would run out before you got the money to buy more. Never true 05/28/19 23 Within the past 12 months, t he food you bought just didn't last and you didn't have money to get more. Never true 05/27/2022 Sex and Gender Information Value Date Recorded Sex Assigned at Female 05/27/2022 9:47 AM EDT Gender Identity Female 05/27/2022 9:47 AM EDT Sexual Orientation Straight 05/27/2022 9: 47 AM EDT Job Start Date Occupation Industry Not on file Not on file Not on file documented as of this encounter Miscellaneous Notes * Telephone Encounter - Yumiko Medina RPh - 03/16/2023 12:00 PM EST Counseled on zicam and coricidin. Okay to take but may not work as well given past exp date. Advised patient if not effective to obtain new supply from pharmacy. Advised patient okay to take zicam and coricidin together. Thank you, Yumiko Medina PharmD Clinical Pharmacist [facility] 03/16/23 12:01 PM [phone] * Telephone Encounter - Dalila Olivas PHARM Tech - 03/16/2023 11:55 AM EST Pt calling with medication question. Pt states she has Zicam and Coricidin on hand, both with expiration dates of October 2022. Pt requesting if she would still be able to take these medications, if if they should be discarded. Pt warm transferred to [facility]. Thank you, Dalila Olivas Manager Infusion I [facility] (formerly [facility]pharm[facility]) 03/16/2023,11:57 AM documented in this encounter Plan of Treatment Upcoming Encounters Date Type Department Care Team (Late st Contact Info) Description 07/16/2023 10:00 AM EDT Laboratory Laboratory, [place] [address] [place] [id number] [facility] [address] [place] [address] 07/21/2023 10:40 AM EDT Office Visit [facility], [place] [address] [place] [phone] July, Chase Louis MD [address] [place] [address] Health Maintenance Due Date Last Done Comments Pneumococcal Vaccine: 65+ Years (1 - PCV) 1941 Albumin/Creatinine Ratio 1951 DTaP,Tdap,and Td Vaccines (1 - Tdap) 1952 Zoster Vaccines (1 of 2) 1983 COVID-19 Vaccine (4 - season) 2022 01/21/2021, 07/11/2020, 06/13/2020 Forde's Esophagus Surveilance 04/15/2023 04/15/2020, 04/15/2020, 01/18/2019 CKD PHOS USE SMARTSET 11324 07/08/2023 07/07/2022 CKD HGB USE SMARTSET 98453 01/12/202401/11, 01/02/2022, 01/02/2022, Additional history exists TSH 01/12/2024 01/11/2023, 06/14, 11/06/2021, Additional history exists Depression Screening 01/16/2024 01/15/2023 DXA Scan 10/07/2028 10/07/2021 Influenza Vaccine (FLU shot) Completed 05/2022, 01/01/2022, 11/27/2020, Additional history exists GARDASIL-HPV IMMUNIZATION SERIES Aged Out No longer eligible based on patient's age to complete this topic Hepatitis B Aged Out No longer eligi ble based on patient's age to complete this topic MENINGOCOCCAL (MENACTRA/MENVEO) Aged Out No longer eligible based on patient's age to complete this topic documented as of this encounter Medical Devices Implanted Type Area Seafood Clerk Device Identifier Shelf Expiration Date Model / Serial / Lot Lens Intraoc 18.5 - [id number] - [id number] Implanted:Qty: 1 on 06/02/2016 by Jann Morejon MD at OR [facility] Left: Eye [employer]USCH [employer]OM[employer] 11/12/2020 [id number] / [id number] / [id number] Lens Intraoc 20.0 - [id number] - [id number] Implanted:Qty: 1 on 06/16/2016 by Jann Morejon MD at OR [facility] Right: Eye BAUSCH [employer] LOMB 01/12/2021 [id number] / [id number] / [id number] documented as of this encounter Advance Directives Latest Code Status on File Code Status Date Activated Date Inactivated Comments Full Code 06/16/2016 11:29 AM 06/16/2016 5:07 PM This o rder reflects the patients wishes and were consensually agreed upon. Code Status History Code Status Date Activated Date Inactivated Comments Full Code 06/02/2016 1:46 PM 06/02/2016 7:42 PM This order reflects the patients wishes and were consensually agreed upon. Care Teams Prison Guard Supervisor Relationship Specialty Start Date End Date July, Chase Louis MD [address] [place] [phone] PCP - General Family Medicine 01/26/22 documented as of this encounter
--- OUTSIDE RECORDS SUMMARY | 2023-03-19 12:25 | External Medical Summary | Summary of Care ---
Author Name Unknown Organization [facility] Address [address] [facility] [place] [address] Phone [phone] Care Team Providers Care Tumblers Supervisor Name Role Phone JulyKhadra MD Primary Care Provider [phone] Reason for Visit * Reason Comments eRx-Medication Refill Encounter Details Date Type Department Care Team (Late st Contact Info) Description 02/12/[address] [facility] [address] [place] [address] JulyKhadra MD [address] [place] [address] Insomnia, unspecified type Allergies Active Allergy Reactions Criticality Noted Date Comments Codeine Nausea/vomiting 05/20/2016 documented as of this encounter (statuses as of 02/12/2023) Medications Medication Sig Dispensed Refills Start Date End Date Status Aspirin 81 MG Tablet Take 1 Tablet by mouth in the morning. Pt taking this every other day. 0 Active Entresto 24-26 MG Oral Tablet (sacubitril-valsart an 24-26 mg per tab) Take 1 Tablet by mouth in the morning and 1 Tablet before bedtime. 0 Active Nitroglycerin 0.4 MG Sublingual Tablet Sublingual (Nitrostat)Indicati ons:Coronary artery disease due to calcified coronary lesion,Chronic atrial fibrillation (HCC) Place under the tongue 1 Tablet every 5 minutes as needed for Pain, Chest. 25 Tablet 0 2 Active Furosemide 20 MG Oral Tablet (Lasix)Indications: Chronic congestive heart failure, unspecified heart failure type (HCC) Take by mouth 1 Tablet every other day . Do not start before January 04, 2022. 90 Tablet 1 2 Active Additional Information Patient not taking.Reported on 09/04/2022 Metoprolol Succinate ER 50 MG Oral Tablet Extended Release 24 Hour (toPROL XL)Indications:Robin nary artery disease due to calcified coronary lesion,Chronic atrial fibrillation (HCC) Take 1 Tablet (50 mg) by mouth in the morning. 90 Tablet 1 2 Active Cetirizine HCl 10 MG Oral Tablet (ZyrTEC) Take 1 Tablet by mouth in the morning. As needed. 0 Active Amoxicillin 500 MG Oral Capsule (Amoxil)Indications :Indication present for endocarditis prophylaxis Take 4 Capsules by mouth once as needed (Prior to dental procedure for IE prophylaxis) for up to 1 dose. 30 Capsule 0 3 Active Vitamin D3 50 MCG (2000 UT) Oral Capsule Take 1 Capsule by mouth in the morning. 0 Active Pantoprazole Sodium 40 MG Oral Tablet Delayed Release (Protonix) TAKE 1 TABLET BY MOUTH AT BEDTIME 90 Tablet 1 3 Active Levothyroxine Sodium 75 MCG Oral Tablet (Levoxyl)Indication s:Acquired hypothyroidism TAKE 1 TABLET BY MOUTH DAILY FIRST THING IN THE MORNING 90 Tablet 1 3 Active Spironolactone 25 MG Oral Tablet (Aldactone)Indicati ons:Chronic systolic congestive heart failure (HCC),Hx of CABG TAKE ONE-HALF TABLET BY MOUTH EVERY OTHER DAY 23 Tablet 2 3 Active Ondansetron 4 MG Oral Tablet Disintegrating (Zofran)Indications :Nausea Place 1 Tablet on tongue every 8 hours as needed for Nausea or Vomiting. dissolve on tongue. 20 Tablet 1 3 Active Eliquis 2.5 MG Oral Tablet (Apixaban) TAKE 1 TABLET BY MOUTH TWICE DAILY 180 Tablet 1 3 Active Escitalopram Oxalate 10 MG Oral Tablet (Lexapro)Indication s:Insomnia, unspecified type TAKE 1 TABLET BY MOUTH IN THE MORNING 90 Tablet 1 3 Active Atorvastatin Calcium 40 MG Oral Tablet (Lipitor) TAKE 1 TABLET BY MOUTH DAILY 90 Tablet 1 3 Active Escitalopram Oxalate 10 MG Oral Tablet (Lexapro)Indication s:Insomnia, unspecified type Take 1 Tablet by mouth in the morning. 90 Tablet 3 3 02/13/20 23 Discontinued Atorvastatin Calcium 40 MG Oral Tablet (Lipitor) TAKE 1 TABLET BY MOUTH DAILY 90 Tablet 1 3 02/13/20 23 Discontinued Eliquis 2.5 MG Oral Tablet (Apixaban) TAKE 1 TABLET BY MOUTH TWICE DAILY 180 Tablet 1 3 02/13/20 23 Discontinued documented as of this encounter (statuses as of 02/12/2023) Active Problems Problem Noted Date Diagnosed Date [...] as of this encounter (statuses as of 02/12/2023) Resolved Problems Problem Noted Date Diagnosed Date Resolved Date Chronic kidney disease, stage 3a 01/26/2022 07/22/2022 Overview: Per CKD protocol Post-menopause 08/06/2021 11/24/2021 documented as of this encounter (statuses as of 02/12/2023) Immunizations Name Administration Dates Next Due COVID-19 mRNA, LNP-s, No Pre serve, 2-Dose Series (Moderna) 07/11/2020,06/13/2020 COVID-19, mRNA, LNP-s, PF, B ooster, 100mcg/0.5mg (Moderna) 01/21/2021 SEASONAL INFLUENZA, PF, 6 M & Above, IM , (FLULAVAL or FLUZONE) 01/14/2013 Season Influenza, Quad, PF, Adjuvanted, 65+ Yrs, IM (FLUAD) 11/27/2020 Seasonal Influenza, Quadrivalent Hd (Fluzone Hd) 01/15/2023,01/01/2022 [...] encounter Miscellaneous Notes * Telephone Encounter - Nidia Appiah, [facility] - 02/12/2023 10:05 AM ESTSigned Prescriptions: Disp Refills Eliquis 2.5 MG Oral Tablet (Apixaban) 180 Ta*1 Sig: TAKE 1 TABLET BY MOUTH TWICE DAILYAuthorizing Provider: KHADRA OBREGON User: NIDIA APPIAH Escitalopram Oxalate 10 MG Oral Tablet (Le*90 Tab*1 Sig: TAKE 1 TABLET BY MOUTH IN THE MORNINGAuthorizing Provider: KHADRA OBREGON User: DURA, NIDIA Atorvastatin Calcium 40 MG Oral Tablet (Li*90 Tab*1 Sig: TAKE 1 TABLET BY MOUTH DAILYAuthorizing Provider: KHADRA OBREGON User: NIDIA APPIAH- documented in this encounter Plan of Treatment Upcoming Encounters Date Type Department Care Team (Late st Contact Info) Description 07/16/2023 10:00 AM EDT Laboratory Laboratory, [place] [address] [place] [phone] [facility] [address] [place] [address] 07/21/2023 10:40 AM EDT Office Visit [place] [address] [place] [phone] Khadra Obregon MD [address] [place] [address] Health Maintenance Due Date Last Done Comments Pneumococcal Vaccine: 65+ Years (1 - PCV) 1941 Albumin/Creatinine Ratio 1951 DTaP,Tdap,and Td Vaccines (1 - Tdap) 1952 Zoster Vaccines (1 of 2) 1983 COVID-19 Vaccine (4 - 2022-24 season) 2022 01/21/2021, 07/11/2020, 06/13/2020 Forde's Esophagus Surveilance 04/15/2023 04/15/2020 CKD PHOS USE SMARTSET 53844 07/08/2023 07/07/2022 CKD HGB USE SMARTSET 13155 01/12/202401/11, 01/02/2022, 01/02/2022, Additional history exists TSH 01/12/2024 01/11/2023, 04/2 07/2022, 11/06/2021, Additional history exists Depression Screening 01/16/2024 [...] this encounter Medical Devices Implanted Type Area Trailer Sections Assembler Device Identifier Shelf Expiration Date Model / Serial / Lot Lens Intraoc 18.5 - [id number] - [id number] Implanted:Qty: 1 on 06/02/2016 by Jann Morejon MD at OR [facility] Left: Eye BAUSCH & LOMB 11/12/2020 [id number] / [id number] / [id number] Lens Intraoc 20.0 - [id number] - [id number] Implanted:Qty: 1 on 06/16/2016 by Jann Morejon MD at OR [facility] Right: Eye BAUSCH & LOMB 01/12/2021 [id number] / [id number] / [id number] documented as of this encounter Visit Diagnoses Diagnosis Insomnia, unspecified type documented in this encounter Advance Directives Latest Code Status [...] and were consensually agreed upon. Care Teams Tumblers Supervisor Relationship Specialty Start Date End Date July, Khadra Louis MD [address] [place] [id number] PCP - General Family Medicine 01/26/22 documented as of this encounter
--- OUTSIDE RECORDS SUMMARY | 2023-03-19 12:25 | External Medical Summary | Summary of Care ---
Author Name Unknown Organization [facility] Address [address] [facility] [place] [address] Phone [phone] Care Team Providers Care Crew Boss Name Role Phone JulyChase MD Primary Care Provider [phone] Reason for Visit * Reason Onset Date Comments Advice 03/17/2023 Covid 19 + Encounter Details Date Type Department Care Team (Late st Contact Info) Description 03/17/2023 Telephone [facility] [address] [place] [address] Chase Montenegro MD [address] [place] [address] Advice (Covid 19 +) Allergies Active Allergy Reactions Criticality Noted Date Comments Codeine Nausea/vomiting 05/20/2016 documented as of this encounter (statuses as of 03/17/2023) Medications Medication Sig Dispensed Refills Start Date [...] MOUTH DAILY 90 Tablet 1 02/12/2023 Active Nirmatrelvir&Ritonav ir 150/100 10 x 150 MG & 10 x 100MG Oral Tablet Therapy Pack (Paxlovid)Indication s:COVID-19 virus infection Take 1 pink tablet of Nirmatrelvir and 1 white tablet of Ritonavir two times a day by mouth. 20 Tablet 0 03/17/2023 Active documented as of this encounter (statuses as of 03/17/2023) Active Problems Problem Noted Date Diagnosed Date [...] as of this encounter (statuses as of 03/17/2023) Resolved Problems Problem Noted Date Diagnosed Date Resolved Date Chronic kidney disease, stage 3a 01/26/2022 07/22/2022 Overview: Per CKD protocol Post-menopause 08/06/2021 11/24/2021 documented as of this encounter (statuses as of 03/17/2023) Immunizations Name Administration Dates Next Due COVID-19 [...] encounter Miscellaneous Notes * Telephone Encounter - Barbara Plata LPN - 03/17/2023 4:51 PM EST Patient contacted and given below message. She verbalized understanding and had no further questions. * Telephone Encounter - Chase Montenegro MD - 03/17/2023 3:59 PM EST Patient COVID positive. GFR 40-45. Requires renal dose pack. Needs to stop atorvastatin until threedays after completing Paxlovid. Rest of medications can continue without change. Sent to [facility] in [place]. Chase Montenegro MD * Telephone Encounter - Harpal Martin OSA - 03/17/2023 2:18 PM EST Reason for patient call/what is patient requesting? Paxlovi Have you had symptoms of COVID-19 such as fever, sore throat, shortness of breath? COVID19 Symptoms:yes Date of first symptoms: 03/15/23 Date of last fever: Unknown Date of last symptoms: 03/17/23 Have you had close exposure to someone who tested positive for COVID-19? COVID19 Exposure: no Date of first exposure: N/A Date of last exposure: N/A Testing location requested: Positive COVID 19 test in the past 90 days? Clinic Test No Home test Yes Did you have 2 vaccines No Boosters Yes Call Details are Required documented in this encounter Plan of Treatment Upcoming Encounters Date Type Department Care Team (Late st Contact Info) Description 07/16/2023 10:00 AM EDT Laboratory Laboratory, [place] [address] [place] [phone] [place] [address] [place] [address] 07/21/2023 10:40 AM EDT Office Visit [facility] [address] [place] [phone] Chase Montenegro MD [address] [place] [address] Health Maintenance Due Date Last Done Comments Pneumococcal Vaccine: 65+ Years (1 - PCV) 1941 Albumin/Creatinine Ratio 1951 DTaP,Tdap,and Td Vaccines (1 - Tdap) 1952 Zoster Vaccines (1 of 2) 1983 COVID-19 Vaccine (4 - season) 2022 01/21/2021, 07/11/2020, 06/13/2020 Forde's Esophagus Surveilance 04/15/2023 04/15/2020, 04/15/2020, 01/18/2019 CKD PHOS USE SMARTSET 48869 07/08/2023 07/07/2022 CKD HGB USE SMARTSET 93996 01/12/202401/11, 01/02/2022, 01/02/2022, Additional history exists TSH 01/12/2024 01/11/2023, 04/07/2022, 11/06/2021, Additional history exists Depression Screening 01/16/2024 [...] this encounter Medical Devices Implanted Type Area Ase Master Mechanic Device Identifier Shelf Expiration Date Model / Serial / Lot Lens Intraoc 18.5 - [id number] - [id number] Implanted:Qty: 1 on 06/02/2016 by Jann Morejon MD at OR [facility] Left: Eye BAUSCH & LOMB 11/12/2020 [id number] / [id number] / [id number] Lens Intraoc 20.0 - [id number] - [id number] Implanted:Qty: 1 on 06/16/2016 by Jann Morejon MD at OR [facility] Right: Eye BAUSCH & LOMB 01/12/2021 [id number] / [id number] / [id number] documented as of this encounter Visit Diagnoses Diagnosis COVID-19 virus infection- Primary documented in this encounter Advance Directives Latest [...] and were consensually agreed upon. Care Teams Crew Boss Relationship Specialty Start Date End Date July, Chase Louis MD [address] [place] [facility] [place] [address] PCP - General Family Medicine 01/26/22 documented as of this encounter
--- OUTSIDE RECORDS SUMMARY | 2023-03-19 12:25 | External Medical Summary | Summary of Care ---
Author Name Unknown Organization [facility] Address [address] [facility] [place] [address] Phone [phone] Care Team Providers Care Cement Mason Maintenance Name Role Phone JulyChase MD Primary Care Provider [phone] Reason for Visit * Reason Onset Date Comments Advice 03/17/2023 Covid 19 + Encounter Details Date Type Department Care Team (Late st Contact Info) Description 03/17/2023 Telephone [facility] [address] [place] [address] Chase Montenegro MD [address] [place] [address] Advice (Covid 19 +) Allergies [...] encounter Miscellaneous Notes * Telephone Encounter - Chase Montenegro MD - 03/17/2023 3:59 PM EST Patient COVID positive. GFR 40-45. Requires renal dose pack. Needs to stop atorvastatin until threedays after completing Paxlovid. Rest of medications can continue without change. Sent to [facility] in [place]. Chase Montenegro MD * Telephone Encounter - [...] Description 07/16/2023 10:00 AM EDT Laboratory Laboratory, [place] [address] [place] [phone] [place] [facility] [address] [place] [address] 07/21/2023 10:40 AM EDT Office Visit [facility], [place] [address] [place] [phone] July, Chase Louis MD [address] [place], [place] [phone] Health Maintenance Due Date Last Done Comments Pneumococcal Vaccine: 65+ Years (1 - PCV) 1941 Albumin/Creatinine Ratio 1951 DTaP,Tdap,and Td Vaccines (1 - Tdap) 1952 Zoster Vaccines (1 of 2) 1983 COVID-19 Vaccine (4 - season) 2022 01/21/2021, 07/11/2020, 06/13/2020 Forde's Esophagus Surveilance 04/15/2023 04/15/2020, 04/15/2020, 01/18/2019 CKD PHOS USE SMARTSET 08336 07/08/2023 07/07/2022 CKD HGB USE SMARTSET 57032 01/12/202401/11, 01/02/2022, 01/02/2022, Additional history exists TSH [...] this encounter Medical Devices Implanted Type Area Tool Clerk Device Identifier Shelf Expiration Date Model / Serial / Lot Lens Intraoc 18.5 - [id number] - [id number] Implanted:Qty: 1 on 06/02/2016 by Jann Morejon MD at OR [facility] Left: Eye BAUSCH & LOMB 11/12/2020 [id number] / [id number] / [id number] Lens Intraoc 20.0 - [id number] - [id number] Implanted:Qty: 1 on 06/16/2016 by Jann Morejon MD at OR [facility] Right: Eye BAUSCH & LOMB 01/12/2021 [id number] / [id number] / [id number] documented as of this encounter Visit Diagnoses [...] and were consensually agreed upon. Care Teams Cement Mason Maintenance Relationship Specialty Start Date End Date May, Chase Louis MD [address] [place] [address] PCP - General Family Medicine 01/26/22 documented as of this encounter
[2023-03-19] MEDS ORDERED: cefTRIAXone SODIUM 1,000 MG in DEXTROSE 5 % MINI-B 50 ML IV SCH (13:00)
[2023-03-19] MEDS: MAGNESIUM SULFATE / D5W 1 GM/100 ML BAG IV SCH ×2 (16:05→18:14)
[2023-03-20] MEDS: LEVOTHYROXINE SODIUM 75 MCG TABLET PO SCH (05:42)
[2023-03-20] MEDS: NIRMATRELVIR/RITONAVIR 1 EA TAB PO SCH ×2 (07:57→20:45)
[2023-03-20 08:13] LABS: Basophils # (auto) 0.01 K/uL (0.00-0.20); Basophils % (auto) 0.3 %; Eosinophils # (auto) 0.15 K/uL (0.00-0.50); Eosinophils % (auto) 3.8 %; Hematocrit (blood only) 39.4 % (37.0-47.0); Hemoglobin 12.6 g/dl (12.0-16.0); Immature Granulocytes # (auto) 0.01 K/uL (0.01-0.20); Immature Granulocytes % (auto) 0.3 %; Lymphocytes # (auto) 0.78 K/uL (1.20-3.40); Mean Corpuscular Hemoglobin 26.3 pg (25.0-34.0); Mean Corpuscular Volume 82.1 fL (80.0-100.0); Mean Platelet Volume 11.7 fL (9.4-12.4); Monocytes # (auto) 0.83 K/uL (0.11-0.59); Monocytes % (auto) 21.3 %; Neutrophils # (auto) 2.12 K/uL (1.40-6.50); Neutrophils % (auto) 54.3 %; Platelet Count 164 K/uL (130-400); RDW Coefficient of Variation 14.5 % (11.5-14.5); RDW Standard Deviation 43.3 fL (36.4-46.3)
[2023-03-20 08:29] LABS: Calcium 7.9 mg/dl (8.6-10.3); Creatinine Clr Calc Pharmacy 33.1 ml/min; Est GFR (African American) 46.9 ml/min; Est GFR (Non-African American) 40.4 ml/min; Potassium 4.2 mmol/L (3.5-5.1)
[2023-03-20] MEDS: ESCITALOPRAM OXALATE 10 MG TAB PO SCH (09:57)
[2023-03-20] MEDS: APIXABAN 2.5 MG TAB PO SCH ×2 (09:57→20:46)
[2023-03-20] MEDS: SPIRONOLACTONE 25 MG TAB PO SCH (09:57)
[2023-03-20] MEDS: METOPROLOL SUCC 50MG EXT REL TAB PO SCH (09:57)
--- NOTE | 2023-03-20 13:26 | Hospitalist Progress Note ---
Date of Service March 20, 2023 Assessment & Plan (1) COVID: Plan: At home test COVID+ on 03/17 COVID+ on arrival on PCR Mild leukopenia is 2nd to her COVID illness Airborne Isolation precautions Patient was started on Paxlovid on 03/18; she can continue to take while inpatient; thus, day #3 CXR obtained today due to mild tachypnea noted during my visit and L basilar rales there is an odd-appearing infiltrate in the left mid-lung as well as probable pulm edema (could be COVID pneumonia, too, but uncertain) will give lasix 20mg po x 1 and reassess tomorrow needs PT/OT evals defer on dexamethasone unless she worsens clinically (2) Chest pain: Plan: Midsternal/left-sided chest pain x 3 episodes that started the evening of 03/17; each episode lasted 1-2 hours Alleviated by taking nitroglycerin at home Trops neg while here No further symptoms PE risk is low - she is on chronic Eliquis Could be due to brewing COVID pneumonia (see #1 above) Consider CT chest Echo to r/o new WMA and to recheck EF - results pending Doubt GI Doubt musculoskeletal chest wall pain (3) GERD (gastroesophageal reflux disease): Plan: Continue pantoprazole (4) CAD (coronary artery disease): Plan: S/p CABG x 5 CABG in 2006 with SARABIA to LAD RCA stent placement in 2013 Continue aspirin every other day (5) Cardiomyopathy: Plan: Echo on 11/06/2022 revealed LVEF at 35-40%; moderate global hypokinesia of left ventricle with inferior hypokinesis; severely dilated left atrium Continue spironolactone ?mild pulm edema on xray --> lasix 20mg po x 1 now labs am cont meto succ 50mg daily hold Entresto cont aldactone await repeat limited echo (6) Chronic kidney disease, stage 3: Plan: BUN 22, creatinine 1.35, and EGFR 34.7 Avoid nephrotoxic agents where possible Hold Entresto for now Okay to continue Paxlovid BMP am (7) Permanent atrial fibrillation: Plan: Chronic; stable Continue metoprolol succinate 50 mg daily Continue Eliquis 2.5mg BID (8) Labile hypertension: Plan: Continue metoprolol succ Continue aldactone lasix x 1 today (9) Hypothyroidism: Plan: Continue levothyroxine TSH wnl Plan DVT proph - Kat left message for Lyudmila, her daughter, on voicemail this evening PT, ROBERTO doss pending Admission and Anticipated Discharge Date Admission Date: March 18, 2023 Subjective patient denies any chest pain at rest no pleuritic pain denies dyspnea at rest or with getting up to bathroom she has not been very active since coming to hospital, however main complaints are that of fatigue, weakness, and cough cough mainly dry tele - a.fib, rates <100 Review of Systems Review of Systems: gen - no fevers or chills cv - no orthopnea, no edema pulm - cough, no sputum GI - no N/V/D Physical Exam Physical Exam: gen - NAD, pleasant; when she moved about in the bed she briefly had dyspnea/tachypnea but she stated "everyone says I get like this but I don't notice it" neck - no obvious JVD mouth - MMM heart - irregularly irregular, s1 s2, no murmur lungs - mild rales L base, ow CTA b/l; no wheeze abd - soft NT ND BS+ ext - no edema, pulses 2+ b/l psych - a/o x 3 Results & Data Results & Data Vital Signs (Past 12 Hours) Vital Signs Temp Pulse Pulse Resp BP Pulse Ox O2 Del Method 03/20/23 12:05 36.7 C 84 18 153/77 H 97 Room Air 03/20/23 07:52 36.3 C L 77 18 142/83 H 98 Room Air 03/20/23 07:40 76 03/20/23 04:00 36.4 C L 73 16 159/81 H 97 Room Air Laboratory Results Laboratory Results - last 24 hr 03/20/23 03/20/23 07:34 07:39 WBC 3.90 L RBC 4.80 Hgb 12.6 Hct 39.4 MCV 82.1 MCH 26.3 MCHC 32.0 RDW Std Deviation 43.3 RDW Coeff of Moe 14.5 Plt Count 164 MPV 11.7 Immature Gran % (Auto) 0.3 Neut % (Auto) 54.3 Lymph % (Auto) 20.0 Castro % (Auto) 21.3 Eos % (Auto) 3.8 Baso % (Auto) 0.3 Neut # (Auto) 2.12 Lymph # (Auto) 0.78 L Castro # (Auto) 0.83 H Eos # (Auto) 0.15 Baso # (Auto) 0.01 Immature Gran # (Auto) 0.01 Sodium 140 Potassium 4.2 Chloride 107 Carbon Dioxide 28 Anion Gap 5 BUN 19 Creatinine 1.19 Est Cr Clr Drug Dosing 33.1 Est GFR ( Amer) 46.9 Est GFR (Non-Af Amer) 40.4 BUN/Creatinine Ratio 16.0 Glucose 92 Calcium 7.9 L Magnesium 2.0 C-Reactive Protein TSH 2.260 PG Care Time/CCT Total # of Minutes Spent Total Time Spent with Patient: Total time spent is greater than 50% in coordination of care (as documented) at patient's floor/unit and/or counseling patient: Coding Level of Care Code 40780 SUB INP/OBS CARE 235MIN Diagnoses COVID U07.1 Chest pain R07.9 GERD (gastroesophageal reflux disease) K21.9 CAD (coronary artery disease) I25.10 Associated angina: unspecified whether angina present Coronary Disease-Associated Artery/Lesion type: unspecified vessel or lesion type [place] vs. transplanted heart: [place] heart Cardiomyopathy I42.9 Chronic kidney disease, stage 3 N18.3 Permanent atrial fibrillation I48.21 Labile hypertension R09.89 Hypothyroidism E03.9 (4) CAD (coronary artery disease) Associated angina: unspecified whether angina present Coronary Disease- Associated Artery/Lesion type: unspecified vessel or lesion type [place] vs. transplanted heart: [place] heart Qualified Code(s): I25.10 - Atherosclerotic heart disease of [place] coronary artery without angina pectoris
--- NOTE | 2023-03-20 14:11 | XRay Report ---
XR chest 1V portable CLINICAL HISTORY: LLL rales, abnl prior CXR; interval change COMPARISON STUDY: Chest radiograph March 18, 2023. Chest CT February 21, 2013. FINDINGS: There are median sternotomy wires and mediastinal surgical clips. Cardiomegaly is unchanged . Pulmonary vascular congestion has slightly progressed. No pneumothorax or pleural effusion. 2.4 cm tubular left midlung density is again noted. This is similar to prior chest radiograph. IMPRESSION: 1. Cardiomegaly. Slight progression of pulmonary vascular congestion. 2. Persistent 2.4 cm tubular left midlung density. This remains indeterminate and can be assessed wit h follow-up radiographs to ensure resolution or a nonemergent chest CT. ACT 112: Negative or not required by law. Electronically signed by: Antoni Mcgrath M.D. 03/20/2023 2:10 PM
[2023-03-20] MEDS ORDERED: FUROSEMIDE 20 MG TAB PO ONE (14:53)
[2023-03-21] MEDS: LEVOTHYROXINE SODIUM 75 MCG TABLET PO SCH (05:58)
[2023-03-21 08:05] LABS: Anion Gap 8 (3-11); BUN Creatinine Ratio 15.6 (10-20); Blood Urea Nitrogen 20 mg/dl (6-23); C Reactive Protein < 0.50 mg/dl (0-0.5); Calcium 8.6 mg/dl (8.6-10.3); Carbon Dioxide 28 mmol/L (21-32); Chloride 104 mmol/L (98-107); Creatinine Clr Calc Pharmacy 30.8 ml/min; Est GFR (African American) 42.9 ml/min; Glucose 95 mg/dl (70-99(Fasting)); Potassium 4.7 mmol/L (3.5-5.1); Sodium 140 mmol/L (136-145)
[2023-03-21] MEDS: APIXABAN 2.5 MG TAB PO SCH ×2 (08:59→20:55)
[2023-03-21] MEDS: SPIRONOLACTONE 25 MG TAB PO SCH (09:00)
[2023-03-21] MEDS: PANTOprazole 40 MG TAB PO SCH (09:00)
[2023-03-21] MEDS: ASPIRIN 81 MG ECTAB PO SCH (09:00)
[2023-03-21] MEDS: NIRMATRELVIR/RITONAVIR 1 EA TAB PO SCH ×2 (09:01→20:56)
[2023-03-21] MEDS: ESCITALOPRAM OXALATE 10 MG TAB PO SCH (09:01)
[2023-03-21] MEDS: METOPROLOL SUCC 50MG EXT REL TAB PO SCH (09:01)
--- NOTE | 2023-03-21 09:17 | XCELERA ---
[id number] \\[id number]
[2023-03-21] MEDS ORDERED: SODIUM CHLORIDE 0.65% NA SOLN 45 ML (OCEAN) ONE (15:42)
[2023-03-21] MEDS ORDERED: FUROSEMIDE 20 MG TAB PO ONE (15:59)
[2023-03-21] MEDS: guaiFENesin 600 MG TABCR PO SCH (18:06)
--- NOTE | 2023-03-21 20:14 | Hospitalist Progress Note ---
Date of Service March 21, 2023 Assessment & Plan (1) COVID: Plan: At home test COVID+ on 03/17 COVID+ on arrival on PCR Mild leukopenia is 2nd to her COVID illness Airborne Isolation precautions Patient was started on Paxlovid on 03/18; she can continue to take while inpatient; thus, day #4 CXR x 2 --> there is an odd-appearing infiltrate in the left mid-lung as well as probable pulm edema (could be COVID pneumonia, too, but uncertain) gave lasix yesterday will give lasix 20mg po x 1 again today BMP am passed PT/OT evals defer on dexamethasone unless she worsens clinically (2) Chest pain: Plan: Midsternal/left-sided chest pain x 3 episodes that started the evening of 03/17; each episode lasted 1-2 hours Alleviated by taking nitroglycerin at home Trops neg while here No further symptoms PE risk is low - she is on chronic Eliquis Could be due to brewing COVID pneumonia (see #1 above) Consider CT chest Echo with IMPROVED EF and NO new WMA Doubt GI Doubt musculoskeletal chest wall pain (3) GERD (gastroesophageal reflux disease): Plan: Continue pantoprazole (4) CAD (coronary artery disease): Plan: S/p CABG x 5 CABG in 2006 with SARABIA to LAD RCA stent placement in 2013 Continue aspirin every other day See discussion above in "chset pain" (5) Cardiomyopathy: Plan: Echo on 11/06/2022 revealed LVEF at 35-40%; moderate global hypokinesia of left ventricle with inferior hypokinesis; severely dilated left atrium Continue spironolactone ?mild pulm edema on xray --> lasix 20mg yesterday; repeat today labs am cont meto succ 50mg daily hold Entresto for now cont aldactone repeat echo this admission with IMPROVED EF to >50% - great news (6) Chronic kidney disease, stage 3: Plan: Avoid nephrotoxic agents where possible Hold Entresto for now BMP am (7) Permanent atrial fibrillation: Plan: Chronic; stable Continue metoprolol succinate 50 mg daily Continue Eliquis 2.5mg BID (8) Labile hypertension: Plan: Continue metoprolol succ Continue aldactone lasix x 1 today again for ?pulm edema (9) Hypothyroidism: Plan: Continue levothyroxine TSH wnl Plan DVT proph - Eliquis left message for Lyudmila, her daughter, on voicemail yesterday evening add mucinex, tessalon and flutter valve for cough/congestion back to the [facility] tomorrow?? Admission and Anticipated Discharge Date Admission Date: March 18, 2023 Subjective tele overnight wnl feels better overall still with cough & congestion but denies dyspnea or MASSEY worked with PT today and did well eating well no new complaints Review of Systems Review of Systems: gen - feeling better; no fevers or chills cv - no chest pain pulm - no dyspnea GI - no N/V; did have loose stool but states this is chronic Physical Exam Physical Exam: gen - NAD, pleasant, looks good today neck - no obvious JVD mouth - MMM heart - irregularly irregular, s1 s2, no murmur lungs - mild rales L base but improved; ow CTA b/l; no wheeze abd - soft NT ND BS+ ext - no edema, pulses 2+ b/l psych - a/o x 3 Results & Data Results & Data Vital Signs (Past 12 Hours) Vital Signs Temp Pulse Pulse Resp BP Pulse Ox O2 Del Method 03/21/23 19:32 36.7 C 74 20 135/73 93 Room Air 03/21/23 17:21 36.7 C 75 19 123/72 95 Room Air 03/21/23 16:00 84 03/21/23 10:38 36.5 C 68 18 130/80 96 Room Air Laboratory Results Laboratory Results - last 24 hr 03/21/23 07:11 Sodium 140 Potassium 4.7 Chloride 104 Carbon Dioxide 28 Anion Gap 8 BUN 20 Creatinine 1.28 H Est Cr Clr Drug Dosing 30.8 Est GFR ( Amer) 42.9 Est GFR (Non-Af Amer) 37.0 BUN/Creatinine Ratio 15.6 Glucose 95 Calcium 8.6 C-Reactive Protein < 0.50 PG Care Time/CCT Total # of Minutes Spent Total Time Spent with Patient: Total time spent is greater than 50% in coordination of care (as documented) at patient's floor/unit and/or counseling patient: Coding Level of Care Code 97383 SUB INP/OBS CARE 2/35MIN Diagnoses COVID U07.1 Chest pain R07.9 GERD (gastroesophageal reflux disease) K21.9 CAD (coronary artery disease) I25.10 Associated angina: unspecified whether angina present Coronary Disease-Associated Artery/Lesion type: unspecified vessel or lesion type [place] vs. transplanted heart: [place] heart Cardiomyopathy I42.9 Chronic kidney disease, stage 3 N18.3 Permanent atrial fibrillation I48.21 Labile hypertension R09.89 Hypothyroidism E03.9 (4) CAD (coronary artery disease) Associated angina: unspecified whether angina present Coronary Disease- Associated Artery/Lesion type: unspecified vessel or lesion type [place] vs. transplanted heart: [place] heart Qualified Code(s): I25.10 - Atherosclerotic heart disease of [place] coronary artery without angina pectoris
[2023-03-21] MEDS: BENZONATATE 100 MG CAPSULE PO SCH (20:55)
--- NOTE | 2023-03-21 21:22 | Electrocardiogram Report ---
Test Reason : Blood Pressure : / mmHG Vent. Rate : 076 BPM Atrial Rate : 000 BPM P-R Int : 000 ms QRS Dur : 154 ms QT Int : 452 ms P-R-T Axes : 000 -86 014 degrees QTc Int : 508 ms Atrial fibrillation Left axis deviation Right bundle branch block Inferior infarct , age undetermined Abnormal ECG When compared with ECG of 18-MAR-2023 18:52, No significant change was found Confirmed by Alcides Pink ([id number]) on 03/21/2023 9:22:41 PM Referred By: REFERRED SELF Confirmed By:Alcides Pink
[2023-03-22] MEDS: LEVOTHYROXINE SODIUM 75 MCG TABLET PO SCH (05:39)
[2023-03-22] MEDS: guaiFENesin 600 MG TABCR PO SCH (05:39)
[2023-03-22 08:47] LABS: BUN Creatinine Ratio 14.4 (10-20); Creatinine Clr Calc Pharmacy 25.2 ml/min; Est GFR (African American) 34.6 ml/min; Est GFR (Non-African American) 29.8 ml/min; Potassium 4.6 mmol/L (3.5-5.1)
[2023-03-22] MEDS: ESCITALOPRAM OXALATE 10 MG TAB PO SCH (09:12)
[2023-03-22] MEDS: METOPROLOL SUCC 50MG EXT REL TAB PO SCH (09:12)
[2023-03-22] MEDS: BENZONATATE 100 MG CAPSULE PO SCH ×2 (09:13→13:04)
[2023-03-22] MEDS: SPIRONOLACTONE 25 MG TAB PO SCH (09:13)
[2023-03-22] MEDS: APIXABAN 2.5 MG TAB PO SCH (09:13)
[2023-03-22] MEDS: NIRMATRELVIR/RITONAVIR 1 EA TAB PO SCH (09:14)
--- NOTE | 2023-03-22 11:02 | CT Scan Report ---
CT chest diagnostic wo con CT DOSE: 515.75 mGy.cm HISTORY: COVID+, ?pneumonia, abnormal CXR (L nodule?) TECHNIQUE: Multiaxial CT images of the chest were performed without contrast. A dose lowering techni que was utilized adhering to the principles of ALARA. COMPARISON: Chest x-ray 03/20/2023. Chest CT 02/21/2013. FINDINGS: The central airways are patent. No pneumothorax. No pleural effusions. There are multiple s cattered subcentimeter pulmonary nodules which have increased in number compared to the prior study. The majority of these nodules demonstrate a tree-in-bud pattern and therefore favor an acute on chron ic bronchiolitis. The dominant 8 mm irregular nodule within the right middle lobe on image 154 has de creased in size. The majority of the remaining scattered subcentimeter pulmonary nodules are similar to 2013 examination and are therefore likely benign. There is a cluster of nodular/tubular densities within the periphery of the left upper lobe which corresponds to the chest x-ray abnormality. There a re few punctate calcified granulomas also seen at this location. This has progressed in the interval. There is similar appearing cluster of nodular/tubular densities within the base of the right middle lobe and lingula which are also new compared to the prior study. Therefore, these areas suggest addit ional sites of infectious/inflammatory disease. Underlying malignancy would be difficult to exclude b ut considered less likely. No acute fractures identified. There are poststernotomy changes noted. Kraft ited views of the upper abdomen demonstrate a normal liver, spleen, and adrenal glands. Normal esopha jacqueline. The heart remains mildly enlarged. No pericardial effusion. Moderate to severe calcified plaque within the normal caliber thoracic aorta. Calcified left hilar lymph nodes and a calcified subcarinal lymph node. No mediastinal or hilar lymphadenopathy. IMPRESSION: 1. There are multiple scattered subcentimeter pulmonary nodules which have increased in number compar ed to the prior study. The majority of these nodules demonstrate a tree-in-bud pattern and therefore favor an acute on chronic bronchiolitis. 2. There is a cluster of nodular/tubular densities within the periphery of the left upper lobe which corresponds to the chest x-ray abnormality. There were similar appearing clusters of nodular/tubular densities within the base of the right middle lobe and lingula which are also new compared to the janice or study. Therefore, these areas suggest additional sites of infectious/inflammatory disease. Underly ing malignancy would be difficult to exclude but considered less likely. Follow-up chest CT in one ye ar can be performed to ensure stability. 3. Additional findings as described above. ACT 112: Negative or not required by law. Electronically signed by: Laron Whalen M.D. 03/22/2023 11:01 AM
--- NOTE | 2023-03-22 14:14 | Pulmonary Consultation ---
Date of Consultation March 22, 2023 Assessment & Plan (1) COVID: (2) Abnormal CT scan of lung: Plan Impression: 87-year-old female admitted after positive outpatient COVID test and chest pain. CT scan was performed which demonstrated some tree-in-bud opacities likely consistent with bronchiolitis. Etiology would be viral or bacterial. Cannot exclude NTM infection or the chronicity of these findings. She is on room air and is not having any respiratory difficulties currently. Recommendations 1. COVID: The patient can be dismissed from the hospital from a respiratory perspective. She is completing her out patient course of Paxlovid which may be reasonable. Specifically no indication for steroids 2. Tree-in-bud opacities on CT scan: This represents bronchiolitis which can be seen in viral, bacterial etiologies. No indication for additional therapies at this point time. The patient is coughing and not hypoxemic in the absence of clinical symptoms, no additional evaluation is required at this point in time. Given the patient is advanced age, it is unclear whether even follow-up imaging is warranted. If the patient wants to pursue aggressive therapies, a repeat CT scan in 3 to 6 months might be appropriate although if these opacities were to persist and the patient would remain asymptomatic, 1 could make a case for not doing anything at this point in time. The patient expressed understanding and again reiterates her desire to return home as quickly as possible. This point in time the patient's pulmonary issues appear to be stable. She can be dismissed from the hospital from a pulmonary standpoint. Pulmonary will sign off. Feel free to contact us with questions or concerns History of Present Illness Attending Physician: Devyn Hunter MD History of Present Illness Asked by hospitalist to evaluate this patient admitted 03/18/2023 with chest pain and found to be COVID-positive and with an abnormal CT scan. History is obtained from discussion with the patient as well as review the electronic medical record. Patient is an 87-year-old female with a history of coronary disease cardiomyopathy atrial fibrillation anticoagulation who was brought to the emergency room from her personal assisted for 3 episodes of chest discomfort. She took sublingual nitro which helped to alleviate the pain. She was found to be positive for COVID and started outpatient Paxlovid on 03/18/2023. She has had an intermittent cough and fevers. She has not been oxygen dependent at home. She was found to be hypertensive. During the course of her hospitalization she was continued on antiviral therapies. Her chest pain was relieved. On 03/20/2023 the patient had some mild tachypnea and left basilar Rales which led to a chest x-ray showing a questionable opacity in the left midlung zone. This led to a CT scan which demonstrated evidence of bronchiolitis with tree-in-bud opacities and pulmonary was consulted. Patient reports that she feels like she is responding appropriately to therapy. She actually feels that her breathing is better. She is coughing but not really expectorating much in the way of phlegm. She is curious as to why she remains in the hospital. She would like to return back to her personal-assisted as quickly as possible. Allergies Allergy/AdvReac Type Severity Reaction Status Date / Time codeine AdvReac Intermediate Vomiting Verified 02/11/23 14:12 Home Medications Medication Instructions Recorded Confirmed Type levothyroxine 75 mcg tablet 75 mcg PO QAM 04/01/18 03/18/23 History apixaban 2.5 mg tablet (Eliquis) 2.5 mg PO BID #60 tabs 04/10/19 03/18/23 Rx atorvastatin 40 mg tablet 40 mg PO QAM #30 tabs 04/10/19 03/18/23 Rx pantoprazole 40 mg tablet,delayed 40 mg PO Q OTHER DAY 04/20/19 03/18/23 History release nitroglycerin 0.4 mg sublingual 0.4 mg sublingual ONCE PRN Chest 10/27/19 03/18/23 Rx tablet (Nitrostat) Pain #30 tabs aspirin 81 mg tablet,delayed 81 mg PO Q OTHER DAY 11/02/22 03/18/23 History release (Ecotrin Low Strength) sacubitril 97 mg-valsartan 103 mg 0.5 tab PO BID #90 tabs 11/12/22 03/18/23 Rx tablet (Entresto) escitalopram oxalate 10 mg tablet 10 mg PO QAM 03/18/23 03/18/23 History metoprolol succinate 100 mg 50 mg PO QAM 03/18/23 03/18/23 History tablet,extended release 24 hr spironolactone 25 mg tablet 25 mg PO QAM 03/18/23 03/18/23 History Patient History Medical History Epistaxis Atrial fibrillation with RVR (04/2019) Inferior myocardial infarction (2013) Ureteral stricture (04/2019) SUZETTE (acute kidney injury) (04/2019) Atrial fibrillation with RVR (03/2019) UTI (urinary tract infection) (04/24/19) Hx of basal cell carcinoma Hematuria (04/2019) Ventricular tachycardia (paroxysmal) (03/2019) Acute CVA (cerebrovascular accident) (03/2019) Rectocele Orthostatic hypotension (01/2019) Edema of both legs Dyslipidemia Cystocele, midline Chronic venous insufficiency Hearing deficit Anxiety Depression Hyperlipidemia Myocardial Infarction (2006) Hypertensive emergency (2018) Surgical History S/P right coronary artery (RCA) stent placement (2013) History of total hysterectomy with bilateral salpingo-oophorectomy (BSO) History of left breast biopsy benign History of bilateral tubal ligation History of dilatation and curettage multiple History of arthroscopy of left knee History of arthroscopy of right knee History of total left knee replacement (TKR) History of total right knee replacement (TKR) History of repair of rectocele with cystocele History of colonoscopy History of cholecystectomy History of esophagogastroduodenoscopy (EGD) Status post Mohs surgery for basal cell carcinoma History of tooth extraction History of wisdom tooth extraction History of ethmoidectomy History of bilateral cataract extraction History of cardiac cath x2--2006 @ [facility] [place]/2013 @ [facility] x1 stent S/P CABG x 5 (2006) SARABIA to LAD, vein grafts to OM 2, RCA, and sequential to ramus and diagonal Family History Son Family history of diabetes mellitus Mother Hypertension Stroke Father Lung cancer Sister Breast cancer Other Heart disease No family history of adverse response to anesthesia No family history of bleeding disorder Denies family history of Ovarian cancer Social History Smoking Status: Never smoker Second Hand Exposure: Yes; Do You Dip or Chew Tobacco: No; Hx Alcohol Use: No Hx Substance Use: No Preferred Language: Telugu Communication Ability: Effective [employer]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 No additions or deletions Physical Exam Constitutional: WD/WN, vitals as above Neck: trachea midline, no thyromegaly Respiratory: normal respiratory effort, lungs clear to auscultation Cardiovascular: RRR, no murmur, no edema Gastrointestinal (Abdomen): normal bowel sounds, soft, nontender, no hepatosplenomegaly Musculoskeletal: Extremities: extremities normal to inspection Skin: no rashes, warm and dry Neurologic: Nonfocal exam Lymphatic: no cervical lymphadenopathy Results & Data Results & Data Vital Signs (Past 12 Hours) Vital Signs Temp Pulse Pulse Resp BP Pulse Ox O2 Del Method 03/22/23 11:32 36.7 C 63 19 118/74 95 Room Air 03/22/23 09:02 36.4 C L 82 18 127/78 95 Room Air 03/22/23 07:39 36.3 C L 81 18 159/86 H 98 Room Air 03/22/23 07:23 73 03/22/23 03:28 36.3 C L 77 20 132/81 93 Room Air Critical Care Results & Data Vital Signs (Past 12 Hours) Vital Signs Temp Pulse Pulse Resp BP Pulse Ox O2 Del Method 03/22/23 11:32 36.7 C 63 19 118/74 95 Room Air 03/22/23 09:02 36.4 C L 82 18 127/78 95 Room Air 03/22/23 07:39 36.3 C L 81 18 159/86 H 98 Room Air 03/22/23 07:23 73 03/22/23 03:28 36.3 C L 77 20 132/81 93 Room Air Lab & Micro Results (Past 24 Hours) No Data to Display Na 141 mmol/L (136-145) 03/22/23 K 4.6 mmol/L (3.5-5.1) 03/22/23 Cl 102 mmol/L (98-107) 03/22/23 CO2 32 mmol/L (21-32) 03/22/23 Anion Gap 7 (3-11) 03/22/23 BUN 22 mg/dl (6-23) 03/22/23 Creatinine 1.53 mg/dl (0.6-1.2) H 03/22/23 Estimated GFR ( Amer) 34.6 ml/min 03/22/23 Estimated GFR (Non-Af Amer) 29.8 ml/min 03/22/23 BUN/Creatinine Ratio 14.4 (10-20) 03/22/23 Glu 109 mg/dl (70-99(Fasting)) H 03/22/23 Ca 9.0 mg/dl (8.6-10.3) 03/22/23 Calcium Level 9.0 mg/dl (8.6-10.3) 03/22/23 08:03 Diagnostic Findings (Past 24 Hours) Chest CT 03/22/23 09:54 CT chest diagnostic wo con CT DOSE: 515.75 mGy.cm HISTORY: COVID+, ?pneumonia, abnormal CXR (L nodule?) TECHNIQUE: Multiaxial CT images of the chest were performed without contrast. A dose lowering technique was utilized adhering to the principles of ALARA. COMPARISON: Chest x-ray 03/20/2023. Chest CT 02/21/2013. FINDINGS: The central airways are patent. No pneumothorax. No pleural effusions. There are multiple scattered subcentimeter pulmonary nodules which have increased in number compared to the prior study. The majority of these nodules demonstrate a tree-in-bud pattern and therefore favor an acute on chronic bronchiolitis. The dominant 8 mm irregular nodule within the right middle lobe on image 154 has decreased in size. The majority of the remaining scattered subcentimeter pulmonary nodules are similar to 2013 examination and are therefore likely benign. There is a cluster of nodular/tubular densities within the periphery of the left upper lobe which corresponds to the chest x-ray abnormality. There are few punctate calcified granulomas also seen at this location. This has progressed in the interval. There is similar appearing cluster of nodular/tubular densities within the base of the right middle lobe and lingula which are also new compared to the prior study. Therefore, these areas suggest additional sites of infectious/inflammatory disease. Underlying malignancy would be difficult to exclude but considered less likely. No acute fractures identified. There are poststernotomy changes noted. Limited views of the upper abdomen demonstrate a normal liver, spleen, and adrenal glands. Normal esophagus. The heart remains mildly enlarged. No pericardial effusion. Moderate to severe calcified plaque within the normal caliber thoracic aorta. Calcified left hilar lymph nodes and a calcified subcarinal lymph node. No mediastinal or hilar lymphadenopathy. IMPRESSION: 1. There are multiple scattered subcentimeter pulmonary nodules which have increased in number compared to the prior study. The majority of these nodules demonstrate a tree-in-bud pattern and therefore favor an acute on chronic bronchiolitis. 2. There is a cluster of nodular/tubular densities within the periphery of the left upper lobe which corresponds to the chest x-ray abnormality. There were similar appearing clusters of nodular/tubular densities within the base of the right middle lobe and lingula which are also new compared to the prior study. Therefore, these areas suggest additional sites of infectious/inflammatory disease. Underlying malignancy would be difficult to exclude but considered less likely. Follow-up chest CT in one year can be performed to ensure stability. 3. Additional findings as described above. ACT 112: Negative or not required by law. Electronically signed by: Laron Whalen M.D. 03/22/2023 11:01 AM I & O Totals 24 Hours 03/21/23 03/22/23 03/23/23 06:59 06:59 06:59 Intake Total 280 / 280 600 / 600 Output Total 0 / 0 Balance 280 / 280 600 / 600 Cumulative 03/18/23 18:22 thru 03/22/23 06:00 Intake Total 1390 Output Total 0 Balance 1390 RT Ventilator Mngmt (Last Documented) Ventilator Ordered Settings Respiratory Rate 19 03/22/23 11:32 Ventilator - PT Measurements Respiratory Rate 19 PG Care Time/CCT Total # of Minutes Spent Total Time Spent with Patient: Total time spent is greater than 50% in coordination of care (as documented) at patient's floor/unit and/or counseling patient: Coding Level of Care Code 45947 INT INP/OBS CARE 2/55MIN Diagnoses COVID U07.[address] scan of lung R91.8
--- NOTE | 2023-03-22 16:47 | Discharge Summary ---
Date of Service date of admission - March 18, 2023 date of discharge - March 22, 2023 Admission HPI Per Admitting Provider Salina is a pleasant 87-year-old female with PMH of CAD, GERD, hypothyroidism, cardiomyopathy, permanent atrial fibrillation, CKD stage III, and labile hypertension. She presented via EMS from [facility] for 3 episodes of midsternal chest pain starting last night on 03/17. She had left-sided chest pain that radiated into her right arm into her back; pain lasted 1-2 hours. She took 3 nitro tablets SL, which helped to alleviate the pain. She characterized the pain as a dull, achy pain that kept her up. The chest pain returned this morning; patient took 2 additional tablets. Pain then returned in the afternoon of 03/18 and she came to the emergency room. Patient has had prior SD in 2008 with stenting. She also reports that she had a bypass in 2006. It should be noted that patient tested positive for COVID with an at-home test on Friday 03/17 and started on a course of Paxlovid the morning of 03/18. She endorses productive cough and intermittent fevers since Wednesday 03/15. She does not use supplemental oxygen therapy at home. She brought her Paxlovid with her into the ED. Patient is hypertensive at 165/85 at time of admission; vitals otherwise stable; 96% SpO2 on RA. ED course: Calcium gluconate 1000 mg IV ROS: Patient endorses productive cough (yellow sputum production), intermittent fever, chills, CATALAN, chest pain, MASSEY, and diarrhea (which patient reports is ongoing, chronic). Patient denies night-sweats, dizziness, lightheadedness, hemoptysis, pleuritic CP, SOB, abdominal pain, N/V, burning with urination, dysuria, numbness/tingling in the arms or legs, or pain in legs. Principal Diagnosis 1. COVID-19 infection - improving 2. Chest pain - heart attack ruled out; echocardiogram IMPROVED from 10/2022 echocardiogram 3. Pulmonary nodules/Abnormal CT of the chest - follow-up with [facility] recommended 4. Coronary artery disease 5. Atrial fibrillation 6. Chronic cough - likely due to #3 Discharge Exam gen - NAD, pleasant, looks good today neck - no obvious JVD mouth - MMM heart - irregularly irregular, s1 s2, no murmur lungs - mild rales L base but improved; ow CTA b/l; no wheeze abd - soft NT ND BS+ ext - no edema, pulses 2+ b/l psych - a/o x 3 Discharge Data Allergies Allergy/AdvReac Type Severity Reaction Status Date / Time codeine AdvReac Intermediate Vomiting Verified 02/11/23 14:12 Consultations [facility] Pulmonology - Ajit Donato MD PT, OT Procedures Performed Echocardiogram: Ordered Studies Chest X-Ray 03/18/23 19:01 XR chest 1V portable HISTORY: 87 years-old Female Chest pain, nonspecific acute chest pain COMPARISON: 01/05/2022 TECHNIQUE: AP view of the chest FINDINGS: Cardiac silhouette is enlarged. Median sternotomy. Pulmonary vascular congestion. No pneumothorax, pleural effusion or overt pulmonary edema. Subsegmental atelectasis versus scarring of the left lung base. 1.9 cm nodular density in the lateral left midlung. IMPRESSION: 1. Cardiomegaly with pulmonary vascular congestion. 2. 1.9 cm nodular density in the lateral left midlung. Correlation with nonemergent follow-up chest CT recommended. ACT 112: Negative or not required by law. The above report was generated using voice recognition software. It may contain grammatical, syntax or spelling errors. Electronically signed by: Yordan Singer M.D. 03/19/2023 7:20 AM Chest X-Ray 03/20/23 13:25 XR chest 1V portable CLINICAL HISTORY: LLL rales, abnl prior CXR; interval change COMPARISON STUDY: Chest radiograph March 18, 2023. Chest CT February 21, 2013. FINDINGS: There are median sternotomy wires and mediastinal surgical clips. Cardiomegaly is unchanged. Pulmonary vascular congestion has slightly progressed. No pneumothorax or pleural effusion. 2.4 cm tubular left midlung density is again noted. This is similar to prior chest radiograph. IMPRESSION: 1. Cardiomegaly. Slight progression of pulmonary vascular congestion. 2. Persistent 2.4 cm tubular left midlung density. This remains indeterminate and can be assessed with follow-up radiographs to ensure resolution or a nonemergent chest CT. ACT 112: Negative or not required by law. Electronically signed by: Antoni Mcgrath M.D. 03/20/2023 2:[address] 03/22/23 09:54 CT chest diagnostic wo con CT DOSE: 515.75 mGy.cm HISTORY: COVID+, ?pneumonia, abnormal CXR (L nodule?) TECHNIQUE: Multiaxial CT images of the chest were performed without contrast. A dose lowering technique was utilized adhering to the principles of ALARA. COMPARISON: Chest x-ray 03/20/2023. Chest CT 02/21/2013. FINDINGS: The central airways are patent. No pneumothorax. No pleural effusions. There are multiple scattered subcentimeter pulmonary nodules which have increased in number compared to the prior study. The majority of these nodules demonstrate a tree-in-bud pattern and therefore favor an acute on chronic bronchiolitis. The dominant 8 mm irregular nodule within the right middle lobe on image 154 has decreased in size. The majority of the remaining scattered subcentimeter pulmonary nodules are similar to 2013 examination and are therefore likely benign. There is a cluster of nodular/tubular densities within the periphery of the left upper lobe which corresponds to the chest x-ray abnormality. There are few punctate calcified granulomas also seen at this location. This has progressed in the interval. There is similar appearing cluster of nodular/tubular densities within the base of the right middle lobe and lingula which are also new compared to the prior study. Therefore, these areas suggest additional sites of infectious/inflammatory disease. Underlying malignancy would be difficult to exclude but considered less likely. No acute fractures identified. There are poststernotomy changes noted. Limited views of the upper abdomen demonstrate a normal liver, spleen, and adrenal glands. Normal esophagus. The heart remains mildly enlarged. No pericardial effusion. Moderate to severe calcified plaque within the normal caliber thoracic aorta. Calcified left hilar lymph nodes and a calcified subcarinal lymph node. No mediastinal or hilar lymphadenopathy. IMPRESSION: 1. There are multiple scattered subcentimeter pulmonary nodules which have increased in number compared to the prior study. The majority of these nodules demonstrate a tree-in-bud pattern and therefore favor an acute on chronic bronchiolitis. 2. There is a cluster of nodular/tubular densities within the periphery of the left upper lobe which corresponds to the chest x-ray abnormality. There were similar appearing clusters of nodular/tubular densities within the base of the right middle lobe and lingula which are also new compared to the prior study. Therefore, these areas suggest additional sites of infectious/inflammatory disease. Underlying malignancy would be difficult to exclude but considered less likely. Follow-up chest CT in one year can be performed to ensure stability. 3. Additional findings as described above. ACT 112: Negative or not required by law. Electronically signed by: Laron Whalen M.D. 03/22/2023 11:01 AM Hospital Course (1) COVID: At home test COVID+ on 03/17 COVID+ on arrival to [facility] on PCR testing Mild leukopenia on CBC was 2nd to her COVID illness Airborne Isolation precautions employed during the stay Patient was started on Paxlovid on 03/18/23 as outpatient She completed the full 5-day course of such between the outpatient & inpatient setting CXR x 2 --> there was an odd-appearing infiltrate in the left mid-lung as well as probable pulmonary edema gave lasix twice while here for the possible pulmonary edema dexamethasone was deferred during the visit on day of discharge a CT chest was obtained due to the abnormal chest x-rays see full CT report above there were numerous pulmonary nodules seen on the CT most of the CT findings were likely NOT related/NOT due to COVID itself Dr Ajit Donato from pulmonary saw her in consultation; no specific therapy (steroids, inhalers, antibiotics, etc) advised will have Mrs Ojeda see Dr Donato in a few weeks post-discharge in light of this abnormal chest CT, her chronic cough, etc of note - she has no current or prior history of dysphagia/aspiration (2) Chest pain: Midsternal/left-sided chest pain x 3 episodes that started the evening of 03/17; each episode lasted 1-2 hours Alleviated by taking nitroglycerin at home Troponins were negative while here She had NO recurrent/further symptoms while hospitalized PE risk is low - she is on chronic Eliquis for a.fib Pain could have been due to the COVID infection itself Doubt GI / GERD Doubt musculoskeletal chest wall pain Echocardiogram was obtained showing IMPROVED EF and NO new wall motion abnormalities Ischemic chest pain was felt unlikely given the normal troponins and the improved echo results The patient has f/u with MEENU Deleon for [facility] Cardiology, on 03/30/23 (3) GERD (gastroesophageal reflux disease): Continue pantoprazole (4) CAD (coronary artery disease): S/p CABG x 5 --> CABG in 2006 with SARABIA to LAD RCA stent placement in 2013 Continue aspirin every other day as previous Continue lipitor Continue metoprolol succinate Continue nitro SL prn See discussion above in "chest pain" (5) Cardiomyopathy: Echo on 11/06/2022 revealed LVEF at 35-40%; moderate global hypokinesia of left ventricle with inferior hypokinesis; severely dilated left atrium also seen repeat echo this admission with IMPROVED EF to >50% - great news given her EF recovery ?mild pulm edema on xray --> lasix 20mg x 2 doses given while here cont meto succ 50mg daily cont aldactone 25mg daily I did ask Mrs Ojeda to HOLD her Entresto until she sees Ms Rock in the cardiology clinic as her BPs were low-normal at times along with borderline creatinine (discharge Cr 1.53) She is not on standing lasix or other loop diuretic at baseline (6) Chronic kidney disease, stage 3: Stage 3b at baseline Hold Entresto at discharge Creatinine on day of discharge - 1.53 (7) Permanent atrial fibrillation: Chronic; stable while here; no issues with rate control Continue metoprolol succinate 50 mg daily Continue Eliquis 2.5mg BID (8) Labile hypertension: Continue metoprolol succ Continue aldactone (9) Hypothyroidism: Continue levothyroxine TSH wnl Plan DVT proph - Eliquis twice daily dispo - returning to the [facility] PT/OT evals Total Time Total Time Spent Total Time Spent (In Minutes): 45 Discharge Plan Discharge Items Patient Disposition: Home - Self-Care Reason For Visit: CHEST PAIN Discharge Diagnosis: 1. COVID-19 infection - improving 2. Chest pain - heart attack ruled out; echocardiogram IMPROVED from 10/2022 echocardiogram 3. Pulmonary nodules/Abnormal CT of the chest - follow-up with [facility] recommended 4. Coronary artery disease 5. Atrial fibrillation 6. Chronic cough - likely due to #3 Activity: As commented below Activity Comment: gradually increase activities over the next 7 days Non-emergency contact: Primary Care Provider, Vineyard Worker and Retail Receiving Clerk Call non-emergency contact if: you have any medication questions and your symptoms worsen Follow-up/Referrals: César Donato MD [Physician] - (6 weeks - follow-up of abnormal chest CT, chronic cough, etc. Dr. Donato's office will be calling you with an appointment with pulmonary. ) Juana Rock PA-C [Physician Math Professor] - 03/30/23 10:00 am (7-10 days ) Chase Montenegro MD [Primary Care Provider] - 03/26/23 2:40 pm (arrive 2:25 for check in ) Diet: Heart Healthy Addtl Attending Provider Instructions: Fantasma Marcos were hospitalized at [facility] due to chest pain in the setting of recently diagnosed COVID-19 infection. Blood work for the heart was normal. This means we did not find a heart attack. We did not find COVID-19 pneumonia on chest x-ray or chest CT scan. It was uncertain what caused the chest pain. It could have been related to your COVID illness itself. It could have been musculoskeletal in origin. We continued your Paxlovid for the COVID while here. You have completed a full 5 days of such -- no need to take additional doses upon return home. Your symptoms gradually improved during the stay. You were seen by PT and OT and they cleared you for return to the [facility]. Additional tests completed include - 1. echocardiogram - this showed that your heart function or "ejection fraction" has IMPROVED since your last echo in October 2022. This means that your heart pumping ability has gotten better over time. 2. CT scan of the chest - this showed numerous pulmonary nodules. We saw some of these nodules on a prior CT scan but they have increased in number. Dr Ajit Donato from pulmonary saw you in consult for this and does not recommend any specific treatments at this time. It would be a good idea for you to follow-up with him to keep track of these nodules. He can also help you with your chronic cough which may be due to the things we saw on your chest CT. You may have another 1-2 weeks of recovery your COVID illness. This is normal. The fatigue is often times the last symptom to go away. Don't over do it and plan to rest and take it easy during your recovery period. Please follow any isolation policy in place at the [facility] for your COVID illness. Focus on good nutrition during your recovery. For cough you may take - * [id number]-[id number] mucinex - 600mg every 12 hours as needed for cough * prescription tessalon pearles - 100mg every 8 hours as needed for cough Follow-up - see separate section Return to [facility] if - * you have recurrent fevers over 100 degrees * you have worsening shortness of breath * you have recurrent chest pains or you have to take nitroglycerin tablets * any other concerns It was our pleasure to care for you! -Dr Hunter :) Pending Studies at Discharge: No Stand-Alone Forms: My [facility], Smoking Cessation Medications and DC Order Prescriptions: New benzonatate 100 mg capsule 100 mg PO TID PRN (Reason: cough) Qty: 30 1RF Continued nitroglycerin [Nitrostat] 0.4 mg tablet, sublingual 0.4 mg sublingual ONCE PRN (Reason: Chest Pain) Qty: 30 1RF Rx Instructions: PLACE TABLET UNDER THE TONGUE EVERY 5 MINUTES IF NEEDED FOR CHEST PAIN aspirin [Ecotrin Low Strength] 81 mg tablet,delayed release (DR/EC) 81 mg PO Q OTHER DAY Rx Instructions: 81 mg PO on odd days; levothyroxine 75 mcg tablet 75 mcg PO QAM Eliquis 2.5 mg Tablet 2.5 mg PO BID Qty: 60 0RF atorvastatin 40 mg Tablet 40 mg PO QAM Qty: 30 0RF Rx Instructions: hold for 3 days 03/18/23,03/19/23,03/20/23 pantoprazole 40 mg tablet,delayed release (DR/EC) 40 mg PO Q OTHER DAY metoprolol succinate 100 mg tablet extended release 24 hr 50 mg PO QAM escitalopram oxalate 10 mg tablet 10 mg PO QAM spironolactone 25 mg tablet 25 mg PO QAM Held Entresto 97-103 mg tablet 0.5 tab PO BID Qty: 90 3RF Hold Instructions: Hold until you see Ms Rock in the CHF / Cardiology clinic Discharge Orders: Discharge Order (Routine); Ordered 03/22/23 Ordered By: Devyn Hunter Admission Data Admit Date/Time: 03/18/23 21:35 Attending Provider: Devyn Hunter Admit Provider: Trent Lees Primary Care Provider: Chase Montenegro Other Providers: César Donato; [place],Home Health Other Interventions: Discharge Summary Assessment (RN) Last Done: 03/22/23 16:27 Coding Level of Care Code 50342 INP/OBS DISCH >30 MIN Diagnoses COVID U07.1 Chest pain R07.9 GERD (gastroesophageal reflux disease) K21.9 CAD (coronary artery disease) I25.10 Associated angina: unspecified whether angina present Coronary Disease-Associated Artery/Lesion type: unspecified vessel or lesion type [place] vs. transplanted heart: [place] heart Cardiomyopathy I42.9 Chronic kidney disease, stage 3 N18.3 Permanent atrial fibrillation I48.21 Labile hypertension R09.89 Hypothyroidism E03.9
== END 2023-03-22 17:19 | disposition home or self-care (01) | DRG 177 ==
LOC: ED 18:36 → EDINP 21:35 → SUATTDRO 21:35 → INTOOBSV 21:35 → 2S 22:18